=== PATIENT | female | born 1950 | race Two or more races ===

== ENCOUNTER 2024-08-01 11:04 | Outpatient (AMB) | payer MEDICARE, OTHER, SELFPAY ==
--- NOTE | 2024-08-01 11:09 | A.OFFVIS_ITS ---
Vital Signs 08/01/24 11:10 Height 5 ft 2 in Weight 140 lb BMI 25.6 BP 130/72 Blood Pressure Location Lt brachial Position Sitting Pulse 82 Pulse Source Pulse Oximeter Pulse Oximetry (%) 97 Oxygen Delivery Method Room Air Intake Visit Reasons: OA/Confirmed APPT. Intake Note: Patient presents for fibromyalgia and osteoarthritis. Allergies fluticasone [From Flonase] Allergy (Mild, Verified 08/01/24 11:13) Blister Sulfa (Sulfonamide Antibiotics) Allergy (Mild, Verified 08/01/24 11:13) Hives HPI HPI OA/Confirmed APPT.: Details: Hx PMR patient of Dr. Romero. She presents to establish Rheumatology care. She had PMR a year years ago presenting with diffuse pain, neck pain. She did not have GCA symptoms on prestation. She reports constant left temporal pain described as sharp pain. She saw Dr. Kline every 6 months with most recent visit last year. At one of her visits in the past Dr. Kline and Dr. Romero communicated due to concern for GCA. Patient denies have TA bx. She was not treated for giant cell arteritis. She has been off of prednisone. She fell out of bed a few years ago. She is not having trouble at the moment with getting up out of chair or bed. At this time she is having pain from recent kidney stone treated with lithotripsy and stent placement. Stent was removed yesterday. She took Tylenol this morning for pain control. She is also on antibiotic for UTI treatment day 3 of 5. hx of fibromyalgia. She has pain everywhere. She was on prednisone for a year and subsequently developed DM and osteoporosis as complication of [facility]p systemic glucorticosteroid use. She has been off of prednisone for a year. Bone density is due 04/07/2025 from reviewing patient's portal [employer]. She is on calcium and vitamin-D supplement. She has not been offered treatment for osteoporosis. She feel 3 times due to knees giving out. She does not use cane at home. She has had pain in her right knee with swelling. Dr. Romero has aspirated right knee. She has pain left 1st toe. She had x-ray done and was told she does not have a bunion. She was provided with custom orthotics, which has provided benefit. Hx hysterectomy She recently had surgery to remove kidney stone with removal of stent yesterday. Denies smoking or drinking alcohol. [facility] Medical History (Updated 08/01/24 @ 12:16 by Christopher Tse MD) Sciatica Arthritis Allergies Polymyalgia rheumatica Osteoarthritis Surgical History (Updated 08/01/24 @ 10:11 by Melissa Cox CMA) H/O: hysterectomy Social History (Updated 08/01/24 @ 10:12 by Melissa Cox CMA) Patient Tobacco Use Status: Never used Tobacco Review of Systems Const All systems reviewed & are unremarkable except as noted in HPI and below Physical Exam Vital Signs: Last Vital Signs Pulse 82 08/01/24 11:10 BP 130/72 08/01/24 11:10 Pulse Ox 97 08/01/24 11:10 Oxygen Delivery Method Room Air 08/01/24 11:10 BMI result Body Mass Index 25.6 Const Other: General: Comfortable CVS: RRR Respiratory: clear to auscultation bilaterally. Good respiratory effort Skin: No lesions seen MSK: No tenderness of small joints in her hands. No synovitis. Bilateral Shoulder abduction 160 degrees with good internal external rotation. She does not have diffuse allodynia of upper extremities or lower extremities. Good range of motion of lower extremities. Small effusion right knee. No tenderness of knees. Hallux valgus left present. She is able to get up out of chair to standing position with using arms on armrest. Assessment & Plan Assessment & Plan (1) Polymyalgia rheumatica: Comment: She has history of PMR treated with prednisone for a year. 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 She has diffuse pain without clinical findings of tender points on exam, which may be masked with the Tylenol that she recently took to control her pain. I am concerned that the pain that she is experiencing is from fibromyalgia and not from recurrent PMR based on clinical exam. I am recommending that she have labs done in 2 weeks to check inflammatory markers as she recently had lithotripsy, stent placement, removal of uterine stent yesterday and is currently being treated for UTI, which can contribute to inflammatory markers being elevated. Code(s): M35.3 - Polymyalgia rheumatica Category: Medical Plan: Labs ordered to have done in 2 weeks She will request bone density report from PCP Return to clinic 3-4 weeks (2) Falls frequently: Comment: She has had frequent falls. Intermittent knee pain right worse than left. Code(s): R29.6 - Repeated falls Category: Medical Plan: X-rays ordered Return to clinic in 3-4 weeks (3) Bunion, left: Comment: Clinical diagnosis. Patient has been evaluated for left 1st MTP pain and reports that x-ray did did not confirm bunion. At this time pain is controlled. Code(s): M21.612 - Bunion of left foot Category: Medical Plan: X-ray ordered Continue to wear supportive footwear (4) Osteoporosis: Comment: Per patient. I am requesting bone density performed at [facility] Code(s): M81.0 - Age-related osteoporosis without current pathological fracture Category: Medical Qualifiers: Osteoporosis type: age-related Presence of current pathological fracture: without current pathological fracture Qualified Code(s): M81.0 - Age- related osteoporosis without current pathological fracture Plan: Patient will request bone density from PCP's office I will address osteoporosis at a future visit Continue calcium and vitamin-D supplementation Return to clinic in 3-4 weeks Orders: Orders XR knee LT 1V Today R29.6 - Repeated falls Creatinine 2 Weeks M35.3 - Polymyalgia rheumatica Erythrocyte Sedimentation Rate 2 Weeks M35.3 - Polymyalgia rheumatica Aspartate Amino Transferase 2 Weeks M35.3 - Polymyalgia rheumatica C Reactive Protein 2 Weeks M35.3 - Polymyalgia rheumatica XR knee standing BI Today R29.6 - Repeated falls XR knee RT 1V Today R29.6 - Repeated falls Complete Blood Count Auto Diff 2 Weeks M35.3 - Polymyalgia rheumatica Alanine Aminotransferase 2 Weeks M35.3 - Polymyalgia rheumatica XR foot LT 2V Today M21.612 - Bunion of left foot Coding Level of Care Code New Pt Level 4 (61568) Diagnoses Polymyalgia rheumatica M35.3 Falls frequently R29.6 Bunion, left M21.612 Age-related osteoporosis without current pathological fracture M81.0 Osteoporosis type: age-related Presence of current pathological fracture: without current pathological fracture
[2024-08-01 11:10] VITALS: BP 130/72; PULSE 82; O2SAT 97; BMI 25.6
--- OUTSIDE RECORDS SUMMARY | 2024-08-01 13:16 | XMS_ITS | Data Portability ---
Author Organization HARSH[facility] Address [address] [place] [address] Care Team Providers Care Organizational Consultant Name Role Phone IRON MULLIGAN Primary Care Provider Assessment No assessment recorded. Plan of Treatment Reminders Order Date Submit Date Provider Last Modified By Organization Details Last Modified Time Details Appointments None recorded. Lab None recorded. Referral None recorded. Procedures None recorded. Surgeries None recorded. Imaging None recorded. Medication Orders doxycycline hyclate 100 mg capsule 2022 023 [facility], [address] [place], [address], 3 13:32:14 montelukast 10 mg tablet 2022 023 [facility], [address] [place], [address], 3 13:32:14 Patient TargetsNo targets recorded. Patient Instructions Encounter Date Encounter Id Patient Instructions Last Modified By Organization Details Last Modified Time 08/22/2022 [id number] Acute Sinusitis: Care Instructions [email or web address] Not available 08/22/2022 13:32:12 Based on your presentation and exam, you are being diagnosed with Sinusitis. Rhinosinusitis is most often viral and will resolve on its own in 7-10 days. Symptoms that last longer than 2 weeks an antibiotic could be considered. Based on your presentation, and antibiotic was written. The following are my recommendations to help your symptoms and to allow your condition to improve: 1. Drink plenty of fluids while you are ill- stay hydrated 2. Rest - don't overexert yourself - this includes sports and any gym routines. 3. I suggest taking an antihistamine - like Claritin, Zyrtec, or Benedryl 4. If you take OTC cold medication I would recommend Julia-Selzer Cold/Cough. 5. Mucinex with a lot of water is ok - if you are having trouble clearing your nasal passages of mucous. However, if you start to cough then discontinue - this can increase coughing due to a watery post nasal drip. 6. Saline Nasal Bouse is recommended. Since an antibiotic was prescribed you need to complete the full course - this is important so you don't develop any antibiotic resistance to future infections. I advise taking a Probiotic like Florastor since you are on an antibiotic - this will help you re-colonize your body with the good bacteria. Typically, it will take 6 months for you to restore your normal body ronald after an antibiotic. Don't hesitate to be seen again if you develop: 1. Fever > 100.5 2. Worsening Headache 3. Stiff Neck 4. Worsening Cough or Shortness of breath 5. Visual Changes. The antibiotic should start to work in 4-5 days. You may not notice immediate response. Thank you for using [facility] today, please feel free to contact our office if you have any questions or concerns. [email or web address] Not available 08/22/2022 13:31:44 Reason for Referral None Reported. Problems Name Problem SNOMED Code Status Onset Date Resolution Date Notes Provider Name and Address Organization Details Recorded Time Hypertensive disorder 93085506 Active 2022 Bev Iona null, PA - [facility] 3 13:04:19 Diabetes mellitus 66741220 Active 2022 Bev Iona null, PA - [facility] 3 13:04:27 Osteoporosis 60186857 Active 2022 Bev Neal null, PA - [facility] 3 13:04:34 Hyperlipidemia 46897601 Active 2022 Bev Iona null, PA - [facility] 3 13:04:39 Anxiety 04252281 Active 2022 Bev Iona null, PA - [facility] 3 13:04:45 Spasm of back muscles 203366640 Active 2022 Bev Iona null, PA - [facility] 3 13:05:01 Problem Notes None recorded. Procedures Surgical History Date Name Laterality Status Provider Name and Address Organization Details Recorded Time hysterectomy completed Bev PATRICIA - [facility] 08/22/2022 13:05:16 Imaging Results None recorded. Procedure Notes None recorded. Medical Equipment None Reported. Allergies Allergen ID Allergen Name Allergen Category Reaction Reaction Severity Criticality Documentation Date Start Date Code Code System Note Provider Name and Address Organization Details Recorded Time 357882 Substance with sulfonami de structure and antibacte rial mechanism of action (substanc e) medicatio n hives Not available low 08/22/2022 97322 8003 SNOMED Bev plascencia PA - [facility] 3 13:03:11 Medications Name Sig Start Date Stop Date Status Note LastModified by Organization Details LastModified Time doxycycline hyclate 100 mg capsule Take 1 capsule twice a day by oral route for 14 days. 2022 active Not Available Not Available Not Avai lable fluconazole 150 mg tablet active Not Available Not Available Not Available metoprolol succinate ER 50 mg tablet,exte nded release 24 hr TAKE 1 TABLET BY MOUTH EVERY DAY 08/22 completed Not Available Not Available Not Available lorazepam 0.5 mg tablet TAKE 1 TABLET BY MOUTH EVERY 8 HOURS NEEDED FOR ANXIETY active Not Available Not Available No t Available diltiazem CD 120 mg capsule,ext ended release 24 hr TAKE 1 CAPSULE BY MOUTH EVERY DAY active Not Available Not Available No t Available montelukast 10 mg tablet TAKE 1 TABLET BY MOUTH EVERY DAY active Not Available Not Available No t Available timolol maleate 0.5 % eye drops INSTILL 1 DROP INTO BOTH EYES EVERY MORNING DIRECTED active Not Available Not Available No t Available metformin ER 500 mg tablet,exte nded release 24 hr TAKE 2 TABLETS BY MOUTH DAILY (WITH BREAKFAST ). AND TAKE 2 TABS IN THE EVENING active Not Available Not Available No t Available metronidazo le 0.75 % topical gel APPLY TO FACE IN A THIN LAYER TWICE DAILY AFTER WASHING 08/22 completed Not Available Not Available Not Available amoxicillin 875 mg-potassiu m clavulanate 125 mg tablet TAKE 1 TABLET BY MOUTH TWICE A DAY FOR 7 DAYS 08/22 completed Not Available Not Available Not Available rosuvastati n 10 mg tablet TAKE 1 TABLET BY MOUTH EVERY DAY active Not Available Not Available No t Available nitrofurant oin monohydrate /macrocryst als 100 mg capsule 08/22 completed Not Available Not Available Not Available calcium 600 mg (as carbonate)- vitamin D3 10 mcg (400 unit) tablet TAKE 1 TABLET BY MOUTH TWICE DAILY *NOT COVERED* active Not Available Not Available No t Available Vitals Date Recorded Body height Body mass index (BMI) Body weight Oxygen saturation Oxygen saturation in Arterial blood by Pulse oximetry Heart rate Respiratory rate Body temperature Systolic blood pressure Diastolic blood pressure Provider Name and Address Organization Details Last Updated DateTime 3 157.48 cm 27.4 kg/m2 33754.8 6 g 97 % 97 % 80 /min 20 /min 97.9 [degF] 105 mm[Hg] 74 mm[Hg] Bev Monson [facility] 13:07:35 Social History Question Answer Notes LastModified by [employer] Details LastModified Time Tobacco Smoking Status Never Smoker Bev plascencia [employer] [facility] 08/22/2022 13:05:08 What Is Your Level Of Alcohol Consumption? None Information not available 08/22/2022 Have You Had Direct Contact, Or Contact During Intimacy, With Monkeypox Rash, Scabs, Or Body Fluids From A Person With Monkeypox? No Information not available 08/22/2022 Do You Use Any Illicit Or Recreational Drugs? No Information not available 08/22/2022 Have You Recently Traveled Abroad? No Information not available 08/22/2022 Do You Or Have You Ever Used Any Other Forms Of Tobacco Or Nicotine? No Information not available 08/22/2022 Sex: Unknown Functional Status None recorded. Mental Status None recorded. Family History Relationship Description Onset Age of this Age Resolved Age Notes LastModified by Organization Details LastModified Time Father No current problems or disability Not available 08/22 13:03:40 Mother No current problems or disability Not available 08/22 13:03:40 Medical History No medical history recorded. Gynecological HistoryNo gynecological history recorded. Obstetrics History GPAL:G 0 P 0 0 0 0 Immunizations Vaccine Type Date Status Note Provider Nam e and Address Organization Details Recorded Time zoster recombinant 0 completed Bev Iona null, PA - [facility] 08/22/2022 13:02:55 zoster recombinant 0 completed Bev Neal null, PA - [facility] 08/22/2022 13:02:55 Influenza, high-dose, quadrivalent, PF 1 completed Bev Iona null, PA - [facility] 08/22/2022 13:02:55 COVID-19, mRNA, LNP-S, PF, 30 mcg/0.3 mL dose 1 completed Bev Iona null, PA - [facility] 08/22/2022 13:02:55 COVID-19, mRNA, LNP-S, PF, 30 mcg/0.3 mL dose 1 completed Bev Neal null, PA - [facility] 08/22/2022 13:02:55 COVID-19, mRNA, LNP-S, PF, 30 mcg/0.3 mL dose 1 completed Bev Neal null, PA - [facility] 08/22/2022 13:02:55 COVID-19, mRNA, LNP-S, PF, 30 mcg/0.3 mL dose, ming-sucrose 2 completed Bev Iona null, PA - [facility] 08/22/2022 13:02:55 pneumococcal polysaccharide PPV23 4 completed Bev Neal null, PA - [facility] 08/22/2022 13:02:55 Td(adult) unspecified formulation 5 completed Bev Neal null, PA - [facility] 08/22/2022 13:02:55 Tdap 6 completed Bev Iona null, PA - [facility] 08/22/2022 13:02:55 Pneumococcal conjugate PCV 13 8 completed Bev Iona null, PA - [facility] 08/22/2022 13:02:55 zoster live 3 completed Bev Iona null, PA - [facility] 08/22/2022 13:02:55 Influenza, high-dose, trivalent, PF 0 completed Bev Iona null, PA - [facility] 08/22/2022 13:02:55 Influenza, high-dose, trivalent, PF 7 completed Bev Iona null, PA - [facility] 08/22/2022 13:02:55 Influenza, high-dose, trivalent, PF 8 completed Bev Neal null, PA - [facility] 08/22/2022 13:02:55 Influenza, high-dose, trivalent, PF 9 completed Bev Iona null, PA - [facility] 08/22/2022 13:02:55 Influenza, high-dose, trivalent, PF 2 completed Bev Neal null, PA - [facility] 08/22/2022 13:02:55 Influenza, high-dose, trivalent, PF 9 completed Bev Neal null, PA - [facility] 08/22/2022 13:02:55 Influenza, split virus, trivalent, preservative 5 completed Bev Neal null, PA - [facility] 08/22/2022 13:02:55 Influenza, split virus, trivalent, preservative 5 completed Bev Neal null, PA - [facility] 08/22/2022 13:02:55 Influenza, split virus, trivalent, preservative 1 completed Bev Iona null, PA - [facility] 08/22/2022 13:02:55 Influenza, split virus, trivalent, preservative 7 completed Bev Neal null, PA - [facility] 08/22/2022 13:02:55 Influenza, split virus, trivalent, preservative 8 completed Bev Iona null, PA - [facility] 08/22/2022 13:02:55 Influenza, split virus, trivalent, preservative 5 completed Bev Iona null, PA - [facility] 08/22/2022 13:02:55 Influenza, split virus, trivalent, preservative 6 completed Bev Iona null, PA - [facility] 08/22/2022 13:02:55 Influenza, split virus, trivalent, preservative 6 completed Bev Neal null, PA - [facility] 08/22/2022 13:02:55 Influenza, split virus, trivalent, PF 3 completed Bev Iona null, PA - [facility] 08/22/2022 13:02:55 Past Encounters Encounter ID Performer Location Encounter Start Date Encounter Closed Date Diagnosis/Indication Diagnosis SNOMED-CT Code Diagnosis ICD10 Code Diagnosis Note [id number] [facility] [address] [place] [phone] 09/16/2021 14:08:53 09/16/2021 17:02:30 [id number] [address] [phone] 09/07/2020 12:07:58 09/07/2020 13:07:48 [id number] HARSHAD MEJIAS [facility] [address] [place] [phone] 0 08/22/2022 10:54:33 08/22/2022 13:32:54 Acute sinusitis 90488080 J01.90 Continue your Saline Nasal Bouse and Marie Use Humidifier in your home. Stay Warm. Health Concerns Section Related Observation LastModified by Organization Detai ls LastModified Time None Recorded Concern Status LastModified by Organization Details LastModified Time None Recorded Advance Directives Directive None Recorded Payers Encounter Date Sequence Insurance Name Policy Number Policy Lynn Covered Member ID Lynn Member ID Guarantor Name 09/07/2020 1 MEDICARE B-[place]: [employer] Marycarmen Gillespie [id number] 2 Marycarmen Gillespie 09/07/2020 2 [facility] [id number] Marycarmen Gillespie [id number] Marycarmen Gillespie 09/16/2021 1 MEDICARE B-[place]: [facility] Marycarmen Gillespie [id number] 2 Marycarmen Gillespie 09/16/2021 2 [facility] [id number] 2 Marycarmen Hillz [id number] Marycarmen Hillz 08/22/2022 1 MEDICARE B-[place]: [facility] Marycarmen Gillespie [id number] 2 Marycarmen Gillespie 08/22/2022 2 [facility] [id number] 2 Marycarmen Hillz [id number] Marycarmen Gillespie Notes Date Note Type Note Provider Name and Address Organization Details Recorded Time 08/22/2022 text/html Sinus Complaints UCReported bypatient.Location: sinus pain;facial pain;pain in the cheek;sinus pressure Associated Symptoms:no fever; no nausea or vomiting; no cough;nasal discharge from both nostrils;difficulty breathing;headache back of head;sore throat;Post nasal drip;nasal passage blockage bilaterally;ear fullness Onset/Timing:initia lly started 2months ago; progressively worse over last 4days Quality:worsening;y ellow Duration:chronic Severity:mild Context:no recent sick contacts Risk Factors:no current smoking or tobacco use Alleviating factors:saline nasal rinses; warm compressNotes:Patel d PCP about 2 weeks ago - was put on Amoxicillin on relief. Feels like she is now worsening over the last 3 days. Yellow discharge. Does have Allergies - takes Marie and saline nasal spray. Started to cough and now is a productive cough. No asthma history. HARSHAD MEJIAS [address] [place], [address], [place] - [facility] 08/22/2022 13:35:55 OBGyn Episode No OBEpisode recorded.
--- OUTSIDE RECORDS SUMMARY | 2024-08-01 13:16 | XMS_ITS | Data Portability ---
Author Organization [place] - [facility], Allergy Address [address] [address] Assessment Encounter Date Assessment Date Assessment LastModified by Organization Details LastModified Time 02/18/2024 02/18/2024 CT sinus obtained due to persistent facial pressure. It was clear of polyps or chronic sinus disease. Recommend trial of azelastine, as that has been helpful in the past, 2 sprays into each nostril twice daily using the opposite hand. Follow up in 6 months for refills, sooner with issues. Dr. Rodriguez reviewed and interpreted the images of today's CT. [email or web address] Not available 02/18/2024 13:01:46 Plan of Treatment Reminders Order Date Submit Date Provider Last Modified By Organization Details Last Modified Time Details Appointments Establish ed 15 2024 02:15P Isaías MAGANA PA-C Not available Not available Not available Lab None recorded. Referral None recorded. Procedures None recorded. Surgeries None recorded. Imaging CT, sinuses, w/o contrast 2023 024 [facility], [address] [place] [address], [id number], 02/18/2024 10:54:00 Medication Orders azelastin e 137 mcg (0.1 %) nasal spray 2023 024 [id number], [address] [facility], [place], [address], 02/18/2024 09:40:51 Patient TargetsNo targets recorded. Patient InstructionsNo instructions recorded. Reason for Referral None Reported. Results Created Date Observation Date Name Description Value Unit Range Abnormal Flag Note LastModifiedBy Organization Detail LastModifiedTime 02/18/20 CT, sinus es, w/o contr ast No observ ation record ed. [email or web address] [facility] Of [address], [address], 02/18/2024 09:43:53 02/24/2002/18/2024 CT, sinus es, w/o contr ast No observ ation record ed. [email or web address] [facility] [address], [address], 02/24/2024 10:03:38 03/07/20 24 08/16/2019 imagi ng/di agnos tic resul t No observ ation record ed. [email or web address] Not Available 14:48:51 03/07/20 24 06/30/2020 imagi ng/di agnos tic resul t No observ ation record ed. [email or web address] Not Available 14:49:10 Result Notes None recorded. Problems Name Problem SNOMED Code Status Onset Date Resolution Date Notes Provider Name and Address Organization Details Recorded Time Deviated nasal septum 129542874 Active 2020 Deviated nasal septum; Note: Date Diagnosed : 01/24/2021 10:12 AM (J34.2) Not Available [facility] 4 02:35:57 Otalgia of left ear 2972169713 Active 2017 Otalgia, left ear; Note: Date Diagnosed : 12/15/2017 2:46 PM (H92.02) Not Available [facility] 4 02:35:59 Pain of left temporoma ndibular joint 94624802145 910530 Active 2017 Arthralgi a of left temporoma ndibular joint; Note: Date Diagnosed : 12/15/2017 2:46 PM (M26.622) Not Available [facility] 4 02:35:49 Obstructi ve sleep apnea syndrome 99249834 Active 2020 Obstructi ve sleep apnea (adult) (pediatri c); Note: Date Diagnosed : 01/24/2021 10:12 AM (G47.33) Not Available [facility] 4 02:36:00 Allergic rhinitis 74245510 Active 2020 Other allergic rhinitis; Note: Date Diagnosed : 01/24/2021 10:11 AM (J30.89) Allergi c rhinitis, unspecifi ed; Note: Date Diagnosed : 11/06/2020 1:49 PM (J30.9) ; Start Date : 1 Not Available [facility] 4 02:35:54 Chronic rhinitis 76062838 Active 2023 CRISTÓBAL MAGANA PA-C [address] [place] [address],[place] [address], [place], [address] , [facility] - [facility] [place] 4 09:16:38 Atypical facial pain 12392457 Active 2023 CRISTÓBAL MAGANA PA-C [address] [place] [address],[place] [address], [place], [address] , [facility] - [facility] [place] 4 09:43:08 Pain in face 58671487 Active 2023 CRISTÓBAL MAGANA PA-C [address] [place] [address],[place] [address], [place], [phone] , [facility] - [facility] [place] 4 09:43:18 Problem Notes None recorded. Procedures Surgical History None recorded. Imaging Results Imaging Date Name Status LastModified by [facility] Details LastModified Time 02/18/2024 CT, sinuses, w/o contrast completed [email or web address] [facility] [address] [place], [address], 02/18/2024 09:43:53 02/18/2024 CT, sinuses, w/o contrast completed [email or web address] [facility] [address] [place] [address], [place], [address], 02/24/2024 10:03:38 08/16/2019 imaging/diagn ostic result completed Information not available 03/07/2024 14:48:51 06/30/2020 imaging/diagn ostic result completed Information not available 03/07/2024 14:49:10 Procedure Notes None recorded. Medical Equipment None Reported. Allergies Allergen ID Allergen Name Allergen Category Reaction Reaction Severity Criticality Documentation Date Start Date Code Code System Note Provider Name and Address Organization Details Recorded Time [id number] Substance with sulfonami de structure and antibacte rial mechanism of action (substanc e) medicatio n other Not available Not available 11/30/2023 27045 [id number] SNOMED React ion: unkno wn, unspe cifie d;; Not Available [facility] 01:24:22 Medications Name Sig Start Date Stop Date Status Note LastModified by Organization Details LastModified Time nystatin 100,000 unit/mL oral suspensio n TAKE 2 ML BY MOUTH 4 TIMES DAILY FOR 7 DAYS. 02/17 completed Not Available Not Available Not Available loperamid e 2 mg capsule TAKE 1 CAPSULE BY MOUTH FOUR TIMES A DAY NEEDED FOR DIARRHEA FOR UP TO 10 DAYS active Not Available Not Available No t Available atorvasta tin 10 mg tablet 02/17 completed Medicati on ID: [id number] rand Name: atorvast atin Sen d Method: E-Prescr ibed Sub s Allowed: subs OK Medic ationGen ericName : atorvast atin Not Available Not Available Not Available cefpodoxi me 200 mg tablet 02/17 completed Not Available Not Available Not Available azithromy leticia 250 mg tablet TAKE 2 TABLETS BY MOUTH TODAY, THEN TAKE 1 TABLET DAILY FOR 4 DAYS DIRECTED 02/17 completed Not Available Not Available Not Available metoprolo l succinate ER 50 mg tablet,ex tended release 24 hr TAKE 1 1/2 TABLETS BY MOUTH EVERY DAY active Not Available Not Available No t Available atenolol 25 mg tablet 02/17 completed Medicati on ID: [id number] B rand Name: atenolol Send Method: E-Prescr ibed Sub s Allowed: subs OK Medic ationGen ericName : atenolol Not Available Not Available Not Available lorazepam 0.5 mg tablet TAKE 1 TABLET BY MOUTH EVERY 8 HOURS NEEDED FOR ANXIETY active Not Available Not Available No t Available OneTouch Ultra Test strips USE TO CHECK BLOOD SUGAR ONCE A DAY active Not Available Not Available No t Available codeine 10 mg-guaife nesin 100 mg/5 mL oral liquid TAKE 5 ML BY MOUTH 3 TIMES DAILY NEEDED FOR COUGH FOR UP TO 10 DAYS. 02/17 completed Not Available Not Available Not Available digoxin 125 mcg (0.125 mg) tablet 02/17 completed Medicati on ID: [id number] B rand Name: digoxin Send Method: E-Prescr ibed Sub s Allowed: subs OK Medic ationGen ericName : digoxin Not Available Not Available Not Available azelastin e 137 mcg (0.1 %) nasal spray SPRAY 2 SPRAYS INTO EACH NOSTRIL TWICE A DAY FOR 30 DAYS active Not Available Not Available No t Available timolol maleate 0.5 % eye drops INSTILL 1 DROP INTO BOTH EYES EVERY MORNING DIRECTED active Not Available Not Available No t Available metformin ER 500 mg tablet,ex tended release 24 hr TAKE 2 TABLETS BY MOUTH DAILY (WITH BREAKFAS T). AND TAKE 2 TABS IN THE EVENING 02/17 completed Not Available Not Available Not Available sertralin e 50 mg tablet 02/17 completed Medicati on ID: [id number] B rand Name: sertrali ne Send Method: E-Prescr ibed Sub s Allowed: subs OK Medic ationGen ericName : sertrali ne Not Available Not Available Not Available metronida zole 0.75 % topical gel 02/17 completed Medicati on ID: [id number] B rand Name: metronid azole Se nd Method: E-Prescr ibed Sub s Allowed: subs OK Medic ationGen ericName : metronid azole Not Available Not Available Not Available loratadin e 10 mg tablet 2020 active Medicati on ID: [id number] B rand Name: loratadi ne Send Method: E-Prescr ibed Sub s Allowed: subs OK Speci al Instruct ion: TAKE 1 TABLET BY MOUTH EVERY DAY Medi cationGe nericNam e: loratadi ne Not Available Not Available Not Available cyclobenz aprine 5 mg tablet Take 1 tablet 3 times a day by oral route. active Not Available Not Available No t Available rosuvasta tin 10 mg tablet TAKE 1 TABLET BY MOUTH EVERY DAY active Not Available Not Available No t Available nitrofura ntoin monohydra te/macroc rystals 100 mg capsule TAKE 1 CAPSULE BY MOUTH TWICE A DAY FOR 7 DAYS active Not Available Not Available No t Available OneTouch UltraSoft Lancets USE TO CHECK BLOOD SUGAR ONCE A DAY active Not Available Not Available No t Available cyclobenz aprine 02/17 completed Not Available Not Available Not Available calcium 600 mg (as carbonate )-vitamin D3 10 mcg (400 unit) tablet TAKE 1 TABLET BY MOUTH TWICE DAILY active Not Available Not Available No t Available OneTouch Ultra2 Meter USE TO CHECK BLOOD SUGAR ONCE A DAY active Not Available Not Available No t Available OneTouch Delica Plus Lancet 30 gauge USE DIRECTED ONCE DAILY active Not Available Not Available No t Available Vitals Date Recorded Body height Body mass index (BMI) Body weight Provider Name and Address Organization Details Last Updated DateTime 02/18/2024 157.48 cm 27.8 kg/m2 98076.04 g Vangie Michael [place] - [facility] 02/18/2024 09:12:09 Social History None recorded. Functional Status None recorded. Mental Status None recorded. Family History Nothing Reported. Medical History No medical history recorded. Gynecological HistoryNo gynecological history recorded. Obstetrics History GPAL:G 0 P 0 0 0 0 Past Encounters Encounter ID Performer Location Encounter Start Date Encounter Closed Date Diagnosis/Indication Diagnosis SNOMED-CT Code Diagnosis ICD10 Code Diagnosis Note [id number] MELANIE RODRIGUEZ MD [facility] [address] [address] 02/18/2024 08:58:15 02/18/2024 09:40:13 Chronic rhinitis 39486471 J31.0 Pain in face 01397547 R5 1.9 Health Concerns Section Related Observation LastModified by Organization Detai ls LastModified Time None Recorded Concern Status LastModified by Organization Details LastModified Time None Recorded Advance Directives Directive None Recorded Payers Encounter Date Sequence Insurance Name Policy Number Policy Lynn Covered Member ID Lynn Member ID Guarantor Name 02/18/2024 1 MEDICARE B-[place]: [employer] Marycarmen Gillespie [id number] Marycarmen Gillespie 02/18/2024 2 [facility] [employer] PL[employer] F (MEDICARE SUPPLEMENT) [id number] 2 Marycarmen Mahogany Gillespie [id number] Marycarmen Gillespie Notes Date Note Type Note Provider Name and Address Organization Details Recorded Time 02/18/2024 text/html 74 year old hayden trevizo presents for follow up on chronic allergic rhinitis and septal deviation. In November, was prescribed Astelin 2 sprays each nostril twice daily and cetirizine or fexofenadine. She has not been taking any of these. Cannot afford the oral antihistamines now that insurance no longer covers OTC medications. Using saline spray. She stopped using her CPAP due to her nasal congestion. Reports nasal drainage is clear. Endorses pressure in bilateral frontal and maxillary distribution. Her sense of smell is fine. Azelastine was helpful previously but caused sores on the septum. MELANIE RODRIGUEZ MD [address] [place] [address], [phone], [facility] - [facility] 02/18/2024 17:28:02 OBGyn Episode No OBEpisode recorded.
== END 2024-08-01 12:11 | disposition home or self-care (01) ==
PROVIDERS: PCP Internal Medicine; Visit Provider Internal Medicine Rheumatology
DX: M35.3 Polymyalgia rheumatica (principal); R29.6 Repeated falls; M21.612 Bunion of left foot; M81.0 Age-related osteoporosis without current pathological fracture
CPT/HCPCS: 99204

== ENCOUNTER → 2024-08-01 11:04 | Outpatient (BNVA) | payer MEDICARE, OTHER, SELFPAY | PROVIDERS: PCP Internal Medicine; Visit Provider Internal Medicine Rheumatology | DX: M35.3 Polymyalgia rheumatica (principal); M21.612 Bunion of left foot; M81.0 Age-related osteoporosis without current pathological fracture; R29.6 Repeated falls | CPT/HCPCS: 99202 ==

== ENCOUNTER 2024-08-29 09:08 | Outpatient (AMB) | payer MEDICARE, OTHER, SELFPAY ==
[2024-08-29 09:11] VITALS: BP 110/64; PULSE 82; O2SAT 94; BMI 27.1
--- NOTE | 2024-08-29 09:11 | MHC.OFFVIS ---
Vital Signs 08/29/24 09:11 Height 5 ft 2 in Weight 148 lb BMI 27.1 BP 110/64 Blood Pressure Location Rt brachial Pulse 82 Pulse Source Pulse Oximeter Pulse Oximetry (%) 94 Oxygen Delivery Method Room Air Intake Visit Reasons: RTC 3-4 Weeks Intake Note: patient presents for follow up Allergies fluticasone [From Flonase] Allergy (Mild, Verified 08/29/24 09:16) Blister Sulfa (Sulfonamide Antibiotics) Allergy (Mild, Verified 08/29/24 09:16) Hives HPI HPI RTC 3-4 Weeks: Details: She has been treated for UTI. Pain from kidney stone resolved the day after surgery. She is experiencing pain under right breast radiating to back and shoulder blade. Onset of pain for 2 weeks after reaching for food in her deep freezer. PFSH Medical History Sciatica Arthritis Allergies Polymyalgia rheumatica Osteoarthritis Surgical History H/O: hysterectomy Social History Patient Tobacco Use Status: Never used Tobacco Physical Exam Vital Signs: Last Vital Signs Pulse 82 08/29/24 09:11 BP 110/64 08/29/24 09:11 Pulse Ox 94 08/29/24 09:11 Oxygen Delivery Method Room Air 08/29/24 09:11 BMI result Body Mass Index 27.1 Const Other: General: Comfortable Skin: No lesions seen MSK: Good range of motion of upper extremities. Tender to palpate below right bra line without any erythema or skin rash present. Assessment & Plan Assessment & Plan (1) Polymyalgia rheumatica: Comment: She has history of PMR treated with prednisone for a year. 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 Recent labs reviewed with patient, which revealed normal inflammatory markers. She is in remission. Code(s): M35.3 - Polymyalgia rheumatica Category: Medical Plan: Monitor clinically for reoccurrence (2) Osteoporosis: Comment: Per patient. I am requesting bone density performed at [facility] Code(s): M81.0 - Age-related osteoporosis without current pathological fracture Category: Medical Qualifiers: Osteoporosis type: age-related Presence of current pathological fracture: without current pathological fracture Qualified Code(s): M81.0 - Age-related osteoporosis without current pathological fracture Plan: I have not received bone density report. Patient will request bone density report. (3) Bunion, left: Comment: Clinical diagnosis. She had x-ray done last month. At this time pain is controlled. Code(s): M21.612 - Bunion of left foot Category: Medical Plan: Patient had x-ray done but I do not have report. Requesting report of x-ray Return to clinic in 3 months (4) Muscle strain of chest wall: Comment: Right bra line region she has developed muscular strain after an incident where she tried to reach for food in a deep freezer. We discussed conservative management. Code(s): S29.011A - Strain of muscle and tendon of front wall of thorax, initial encounter Category: Medical Qualifiers: Encounter type: initial encounter Qualified Code(s): S29.011A - Strain of muscle and tendon of front wall of thorax, initial encounter Plan: Apply diclofenac gel 1% to affected area 3 times a day Apply heat or ice to affected area daily If pain does not improve, she will call office for PT Return to clinic in 3 months Coding Level of Care Code Est Pt Level 4 (12697) Complex EM visit Add On G2211 Diagnoses Polymyalgia rheumatica M35.3 Age-related osteoporosis without current pathological fracture M81.0 Osteoporosis type: age-related Presence of current pathological fracture: without current pathological fracture Bunion, left M21.612 Muscle strain of chest wall, initial encounter S29.011A Encounter type: initial encounter
== END 2024-08-29 10:02 | disposition home or self-care (01) ==
PROVIDERS: PCP Internal Medicine; Visit Provider Internal Medicine Rheumatology
DX: M35.3 Polymyalgia rheumatica (principal); M81.0 Age-related osteoporosis without current pathological fracture; M21.612 Bunion of left foot; S29.011A Strain of muscle and tendon of front wall of thorax, initial encounter
CPT/HCPCS: 99214; G2211

== ENCOUNTER → 2024-08-29 09:08 | Outpatient (BNVA) | payer MEDICARE, OTHER, SELFPAY | PROVIDERS: PCP Internal Medicine; Visit Provider Internal Medicine Rheumatology | DX: M35.3 Polymyalgia rheumatica (principal); M81.0 Age-related osteoporosis without current pathological fracture; M21.612 Bunion of left foot; S29.011A Strain of muscle and tendon of front wall of thorax, initial encounter; X58.XXXA Exposure to other specified factors, initial encounter; Y93.9 Activity, unspecified; Y92.9 Unspecified place or not applicable; Y99.9 Unspecified external cause status | CPT/HCPCS: 99212 ==

== ENCOUNTER 2024-11-28 14:13 | Outpatient (AMB) | payer MEDICARE, OTHER, MEDICAID, SELFPAY ==
--- NOTE | 2024-11-28 14:14 | MHC.OFFVIS ---
Vital Signs 11/28/24 14:15 Height 5 ft 2 in Weight 148 lb 6 oz BMI 27.1 BP 110/80 Blood Pressure Location Rt brachial Position Sitting Pulse 84 Pulse Source Pulse Oximeter Pulse Oximetry (%) 99 Oxygen Delivery Method Room Air Intake Visit Reasons: 3 Months Intake Note: Patient presents for fibromyalgia and osteoarthritis. Allergies fluticasone [From Flonase] Allergy (Mild, Verified 11/28/24 14:14) Blister Sulfa (Sulfonamide Antibiotics) Allergy (Mild, Verified 11/28/24 14:14) Hives HPI HPI 3 Months: Details: She had cramps last week last wednesday (left leg) and (right leg).It occurred at night. Lasted 5 mintues or more. Resolved. Stretching was ineffective. She has tightness in her muscles at night. She light temperal headaches especially left side. Occurs 3-4 times a week when she lies down or gets up in the morning. SHe was told she has high pressure in left eye. On eye drops. She sees lines in her eyes. Last eye exam 2-3 months ago. No jaw pain. She has chronic intermittent neck pain. She has pain everywhere. [facility] Medical History (Updated 11/28/24 @ 16:13 by Christopher Tse MD) Sciatica Arthritis Allergies Polymyalgia rheumatica Osteoarthritis Surgical History (Updated 11/28/24 @ 14:19 by Trinidad Palafox CMA) H/O ureteroscopy H/O: hysterectomy Social History Patient Tobacco Use Status: Never used Tobacco Physical Exam Vital Signs: Last Vital Signs Pulse 84 11/28/24 14:15 BP 110/80 11/28/24 14:15 Pulse Ox 99 11/28/24 14:15 Oxygen Delivery Method Room Air 11/28/24 14:15 BMI result Body Mass Index 27.1 Const Other: General: Comfortable Skin: No lesions seen MSK: Normal range of motion of upper extremities and lower extremities. No tenderness of temporal region. No synovitis. Pulses: Palpable bilateral temporal pulses +1. +2 bilateral radial pulses. Assessment & Plan Assessment & Plan (1) Polymyalgia rheumatica: Comment: In clinical remission. She has been experiencing mild bilateral temporal headaches. We discussed association of giant cell arteritis with polymyalgia rheumatica. Rheumatology history: PMR treated with prednisone for a year. 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 Recent labs reviewed with patient, which revealed normal inflammatory markers. She is in remission. Code(s): M35.3 - Polymyalgia rheumatica Category: Medical Plan: I will check inflammatory markers. If inflammatory markers are elevated, patient will be inform for consideration of left temporal artery biopsy for workup of giant cell arteritis Return to clinic in 3 months (2) Muscle cramp: Code(s): R25.2 - Cramp and spasm Category: Medical Plan: Electrolytes ordered Return to clinic in 3 months (3) Fibromyalgia: Comment: She is experiencing all-over body pain likely related to uncontrolled fibromyalgia. Code(s): M79.7 - Fibromyalgia Category: Medical Plan: I recommended aquatic therapy. She will look into the [employer] Orders: Orders Potassium Today R25.2 - Cramp and spasm Magnesium Today R25.2 - Cramp and spasm Calcium Today R25.2 - Cramp and spasm Aldolase Today R25.2 - Cramp and spasm Vitamin D 25-OH Total Today R25.2 - Cramp and spasm Erythrocyte Sedimentation Rate Today M35.3 - Polymyalgia rheumatica, Z79.899 - Other intermediate (current) drug therapy C Reactive Protein Today M35.3 - Polymyalgia rheumatica, Z79.899 - Other intermediate (current) drug therapy Coding Level of Care Code Est Pt Level 4 (59532) Complex EM visit Add On G2211 Diagnoses Polymyalgia rheumatica M35.3 Muscle cramp R25.2 Fibromyalgia M79.7
[2024-11-28 14:15] VITALS: BP 110/80; PULSE 84; O2SAT 99; BMI 27.1
--- OUTSIDE RECORDS SUMMARY | 2024-11-28 15:27 | XMS_ITS | Data Portability ---
Author Organization [place] [facility], Allergy Address [address] [address] Assessment Encounter Date Assessment Date Assessment LastModified by Organization Details LastModified Time 02/18/2024 02/18/2024 CT sinus obtaine d due to persistent facial pressure. It was clear of polyps or chronic sinus disease. Recommend trial of azelastine, as that has been helpful in the past, 2 sprays into each nostril twice daily using the opposite hand. Follow up in 6 months for refills, sooner with issues. Dr. Rodriguez reviewed and interpreted the images of today's CT. [email or web address] Not available 02/18/2024 13:01:46 08/21/2024 08/21/2024 Facial pressure has resolved with use of Astelin, but clear rhinorrhea persists. CT previously clear of chronic sinusitis or nasal polyps, and patient without history or physical exam findings consistent with infection. Reviewed this is likely a combination of allergic and non allergic rhinitis. Allergy testing in 2020 demonstrated few allergies, most mild, but strongest response was to dust mites. She is not interested in immunotherapy, so doubt there would be significant benefit from repeating her allergy testing. Recommend new pillow, and hypoallergenic mattress and pillow covers along with removal of any rugs or carpet in the bedroom. Bed clothes should be laundered weekly in hot water and dried in a hot soap drier tender. Recommend frequent vacuuming and damp-mopping, preferably by another member of the household or while wearing a mask if patient must do this themself. Consider an air purifier with HEPA filter, which should be regularly changed according to porcelain slusher schedule. Vents and ducts in the home should be cleaned regularly as well. Follow up in 6 months, sooner with worsening or lack of improvement. [email or web address] Not available 08/21/2024 14:42:36 Plan of Treatment Reminders Order Date Submit Date Provider Last Modified By Organization Details Last Modified Time Details Appointments Establish ed 30 2024 09:00A M FELI MCDANIEL MD Not available Not available Not available Lab None recorded. Referral None recorded. Procedures None recorded. Surgeries None recorded. Imaging CT, sinuses, w/o contrast 2023 024 [facility], [address] [place] [address], [address], 02/18/2024 10:54:00 Medication Orders ipratropi um bromide 21 mcg (0.03 %) nasal spray 2024 025 [facility]acy #1972, [address] [place] [address], [address], 08/21/2024 14:35:30 azelastin e 137 mcg (0.1 %) nasal spray 2023 024 [facility] #1972, [address] [place] [address], [address], 02/18/2024 09:40:51 Patient TargetsNo targets recorded. Patient InstructionsNo instructions recorded. Reason for Referral None Reported. Results Created Date Observation Date Name Description Value Unit Range Abnormal Flag Note LastModifiedBy Organization Detail LastModifiedTime 02/18/20 CT, sinus es, w/o contr ast No observ ation record ed. [email or web address] [facility] [address], [address], 02/18/2024 09:43:53 02/24/2002/18/2024 CT, sinus es, w/o contr ast No observ ation record ed. [email or web address] [facility] [address], [address], 02/24/2024 10:03:38 03/07/20 24 08/16/2019 imagi ng/di [...] Organization Details Recorded Time Deviated nasal septum 190439744 Active 2020 Deviated nasal septum; Note: Date Diagnosed : 01/24/2021 10:12 AM (J34.2) Not Available [facility] 4 02:35:57 Otalgia of left ear 5324851069 Active 2017 Otalgia, left ear; Note: Date Diagnosed : 12/15/2017 2:46 PM (H92.02) Not Available [facility] 4 02:35:59 Pain of left temporoma ndibular joint 78461771133 439311 Active 2017 Arthralgi a of left temporoma ndibular joint; Note: Date Diagnosed : 12/15/2017 2:46 PM (M26.622) Not Available [facility] 4 02:35:49 Obstructi ve sleep apnea syndrome 78748632 Active 2020 Obstructi ve sleep apnea (adult) (pediatri c); Note: Date Diagnosed : 01/24/2021 10:12 AM (G47.33) Not Available [facility] 4 02:36:00 Allergic rhinitis 03733487 Active 2020 Other allergic rhinitis; Note: Date Diagnosed : 01/24/2021 10:11 AM (J30.89) Allergi c rhinitis, unspecifi ed; Note: Date Diagnosed : 11/06/2020 1:49 PM (J30.9) ; Start Date : Not Available [facility] 4 02:35:54 Chronic rhinitis 91284407 Active 2023 CRISTÓBAL MAGANA PA-C [address] [place] [address],[facility] [address], [place], [address] , [place] - [facility] [place] 4 09:16:38 Atypical facial pain 67626176 Active 2023 CRISTÓBAL MAGANA PA-C [address] [facility],[place] [address], [place], [place], [address] , [place] - [facility] [place] 4 09:43:08 Pain in face 52259664 Active 2023 CRISTÓBAL MAGANA PA-C [address] [facility],[place] [address], [place], [place], [address] , [place] - [facility] [place] 4 09:43:18 Anterior rhinorrhe a 484820163 Active 2024 CRISTÓBAL MAGANA PA-C [address] [facility],[place] [address], [place], [place], [address] , [place] - [facility] [place] 5 14:33:59 Problem Notes None recorded. Procedures Surgical History None recorded. Imaging Results Imaging Date Name Status LastModified by [facility] Details LastModified Time 02/18/2024 CT, sinuses, w/o contrast completed [email or web address] [facility] [address] [place], [address], 02/18/2024 09:43:53 02/18/2024 CT, sinuses, w/o contrast [email or web address] [address] [place] [address], [place], [address], 02/24/2024 10:03:38 08/16/2019 imaging/diagn ostic result completed Information not available 03/07/2024 14:48:51 06/30/2020 imaging/diagn ostic result completed Information not available 03/07/2024 14:49:10 Procedure Notes None recorded. Medical Equipment None Reported. Allergies Allergen ID Allergen Name Allergen Category Reaction Reaction Severity Criticality Documentation Date Start Date Code Code System Note Provider Name and Address Organization Details Recorded Time 610809 Substance with sulfonami de structure and antibacte rial mechanism of action (substanc e) medicatio n other Not available Not available 11/30/2023 43127 8003 SNOMED React ion: unkno wn, unspe cifie d;; Not Available [facility] 01:24:22 Medications Name Sig Start Date Stop [...] mg tablet 02/17 completed Medicati on ID: [id number] B rand Name: atorvast atin Sen d [...] completed Not Available Not Available Not Available cefpodoxi me 100 mg tablet TAKE 1 TABLET BY MOUTH TWICE A DAY active Not Available Not Available No t Available metoprolo l succinate ER 50 mg tablet,ex tended release 24 hr TAKE 1 1/2 TABLETS BY MOUTH DAILY active Not Available Not Available No t Available atenolol 25 mg tablet 02/17 completed Medicati on ID: [id number] B rand Name: atenolol Send Method: E-Prescr [...] Not Available Not Available No t Available cephalexi n 500 mg capsule TAKE 1 CAPSULE BY MOUTH 3 TIMES A DAY FOR 5 DAYS. 08/21 completed Not Available Not Available Not Available codeine 10 mg-guaife nesin 100 mg/5 mL oral liquid TAKE 5 ML BY MOUTH 3 TIMES DAILY NEEDED FOR COUGH FOR UP TO 10 DAYS. 02/17 completed Not Available Not Available Not Available digoxin 125 mcg (0.125 mg) tablet 02/17 completed Medicati on ID: [id number] B rand Name: digoxin Send Method: E-Prescr [...] Not Available Not Available No t Available sertralin e 50 mg tablet 02/17 completed Medicati on ID: [id number] B rand Name: sertrali ne Send Method: E-Prescr ibed Sub s Allowed: subs OK Medic ationGen ericName : sertrali ne Not Available Not Available Not Available metronida zole 0.75 % topical gel 02/17 completed Medicati on ID: [id number] B rand Name: metronid azole Se nd Method: E-Prescr ibed Sub s Allowed: subs OK Medic ationGen ericName : metronid azole Not Available Not Available Not Available ipratropi um bromide 21 mcg (0.03 %) nasal spray SPRAY 2 SPRAYS 3 TIMES A DAY BY INTRANAS AL ROUTE active Not Available Not Available No t Available loratadin e 10 mg tablet 2020 active Medicati on ID: [id number] B rand Name: loratadi ne Send Method: E-Prescr ibed Sub s Allowed: subs OK Speci al Instruct ion: TAKE 1 TABLET BY MOUTH EVERY DAY Medi cationGe nericNam e: loratadi ne Not Available Not Available Not Available Arthritis Pain Relief (capsaici n) 0.075 % topical cream APPLY TO AFFECTED AREAS (FEET) 4 TIMES DAILY active Not Available Not Available No t Available cyclobenz aprine 5 mg tablet Take 1 tablet 3 times a day by oral route. active Not Available Not Available No t Available rosuvasta tin 10 mg tablet TAKE 1 TABLET BY MOUTH EVERY DAY active Not Available Not Available No t Available nitrofura ntoin monohydra te/macroc rystals 100 mg capsule TAKE 1 CAPSULE BY MOUTH TWICE A DAY FOR 7 DAYS 08/21 completed Not Available Not Available Not Available OneTouch UltraSoft Lancets USE TO CHECK [...] Updated DateTime 02/18/2024 157.48 cm 27.8 kg/m2 95873.04 g Vangie Michael [place] [facility] 02/18/2024 09:12:09 Date Recorded Body height Body mass index (BMI) Body weight Provider Name and Address Organization Details Last Updated DateTime 08/21/2024 157.48 cm 25.6 kg/m2 20202.93 rolf Michael [place] [facility] 08/21/2024 14:28:06 Social History None recorded. Functional Status None recorded. Mental Status None recorded. Family History Nothing Reported. Medical History No medical history recorded. Gynecological HistoryNo gynecological history recorded. Obstetrics History GPAL:G 0 P 0 0 0 0 Past Encounters Encounter ID Performer Location Encounter Start Date Encounter Closed Date Diagnosis/Indication Diagnosis SNOMED-CT Code Diagnosis ICD10 Code Diagnosis Note [id number] CRISTÓBAL MAGANA PA-C [facility] [address] [address] 02/18/2024 08:58:15 02/18/2024 09:40:13 Chronic rhinitis 10672681 J31.0 Pain in face 34636248 R5 1.9 [id number] CRISTÓBAL MAGANA PA-C [facility] 100 [place] [address] 08/21/2024 14:08:42 08/21/2024 14:55:22 Allergic rhinitis 66077832 J30.89 J30.9 Deviated nasal septum 12 6550779 J34.2 Anterior rhinorrhea 2772 72446 J34.89 Health Concerns Section Related Observation LastModified by Organization Detai ls LastModified Time None Recorded Concern Status LastModified by Organization Details LastModified Time None Recorded Advance Directives Directive None Recorded Payers Insurance Date Sequence Insurance Name Policy Number Policy Lynn Covered Member ID Lynn Member ID Guarantor Name 08/19/2024 1 [place] [employer] Marycarmen L Gillespie [id number] Marycarmen L Gillespie 09/29/2024 3 [place] [employer] Marycarmen L Gillespie [id number] Marycarmen L Gillespie 09/29/2024 2 UNICARE - SENIOR SERVICES PLAN F (MEDICARE SUPPLEMENT) [id number] Marycarmen L Gillespie [id number] Marycarmen L Gillespie Notes Date Note Type Note Provider [...] sores on the septum. MELANIE RODRIGUEZ MD [address] [place] [address], [place], [address], [facility] - [facility] 02/18/2024 17:28:02 08/21/2024 text/html 74 year old hayden trevizo presents for follow up on chronic allergic rhinitis and septal deviation. She reports her previous facial pressure has resolved but she still has constant clear rhinorrhea despite using Astelin every morning. Sometimes the left side of the nose bleeds a bit. She denies purulent rhinorrhea, frequent sneezing, and ocular itching. CT previously clear of mucosal thickening and sinonasal polyps. MELANIE RODRIGUEZ MD [address] [place] [address], [place], [address], [facility] - [facility] 08/21/2024 17:03:37 OBGyn Episode No OBEpisode recorded.
--- OUTSIDE RECORDS SUMMARY | 2024-11-28 15:27 | XMS_ITS | Data Portability ---
Author Organization HARSH[facility] Address [address] [place] [address] Care Team Providers Care Import Coordination And Production Head Name Role Phone IRON MULLIGAN Primary Care Provider Assessment No assessment recorded. Plan of Treatment Reminders Order Date Submit Date Provider Last Modified By Organization Details Last Modified Time Details Appointments None recorded. Lab None recorded. Referral None recorded. Procedures None recorded. Surgeries None recorded. Imaging None recorded. Medication Orders doxycycline hyclate 100 mg capsule 2022 023 [facility]acy #1972, [address] [place], [address], 3 13:32:14 montelukast 10 mg tablet 2022 023 [facility] #1972, [address] [place], [address], 3 13:32:14 Patient TargetsNo targets recorded. Patient Instructions Encounter Date Encounter Id Patient Instructions Last Modified By Organization Details Last Modified Time 08/22/2022 [id number] Acute Sinusitis: Care Instructions [email or web address] Not available 08/22/2022 13:32:12 Based on your [...] watery post nasal drip. 6. Saline Nasal Oxbow is recommended. Since an antibiotic was prescribed [...] if you have any questions or concerns. [email or web address] Not available 08/22/2022 13:31:44 Reason for Referral None Reported. Problems Name Problem SNOMED Code Status Onset Date Resolution Date Notes Provider Name and Address Organization Details Recorded Time Hypertensive disorder 77975267 Active 2022 Bev [place] null, [place] - [facility] 3 13:04:19 Diabetes mellitus 59631912 Active 2022 Bev [place] null, [place] - [facility] 3 13:04:27 Osteoporosis 19595696 Active 2022 Bev [place] null, [place] - [facility] 3 13:04:34 Hyperlipidemia 67872598 Active 2022 Bev [place] null, [place] - [facility] 3 13:04:39 Anxiety 30599426 Active 2022 Bev [place] null, [place] - [facility] 3 13:04:45 Spasm of back muscles 398974347 Active 2022 Bev [place] null, [place] - [...] Name and Address Organization Details Recorded Time 667292 Substance with sulfonami de structure and antibacte rial mechanism of action (substanc e) medicatio n hives Not available low 08/22/2022 14514 8003 SNOMED Bev plascencia [facility] - [facility] [...] saturation in Arterial blood by Pulse oximetry Pain severity - 0-10 verbal numeric rating [Score] - Reported Heart rate Respiratory rate Body temperature Systolic blood pressure Diastolic blood pressure Provider Name and Address Organization Details Last Updated DateTime 157.48 cm 27.4 kg/m2 40257.8 6 g 97 % 97 % 0 80 /min 20 /min 97.9 [degF] 105 mm[Hg] 74 mm[Hg] Bev Monson [employer] 13:07:35 Social History Question Answer Notes LastModified by [employer] Details LastModified Time Tobacco Smoking Status Never Smoker Bev plascencia PA [facility] [employer] 08/22/2022 13:05:08 Have You Had Direct Contact, Or Contact During Intimacy, With Monkeypox Rash, Scabs, Or Body Fluids From A Person With Monkeypox? No Information not available 08/22/2022 Have You Recently Traveled Abroad? No Information not available 08/22/2022 Sex: Unknown Functional Status Question Answer Note LastModified by [employer] Details LastModified Time Do you use any illicit or recreational drugs? No Information not available 08/22/2022 Do you or have you ever used any other forms of tobacco or nicotine? No Information not available 08/22/2022 What is your level of alcohol consumption? None Information not available 08/22/2022 Mental Status None recorded. Family History Relationship [...] Recorded Time zoster recombinant 0 completed Bev [place] null, [place] - [facility] 08/22/2022 13:02:55 zoster recombinant 0 completed Bev Iona null, [...] 30 mcg/0.3 mL dose 1 completed Bev [place] null, [place] - [facility] 08/22/2022 13:02:55 COVID-19, mRNA, LNP-S, PF, 30 mcg/0.3 mL dose, ming-sucrose 2 completed Bev [place] null, [place] - [facility] 08/22/2022 13:02:55 pneumococcal polysaccharide PPV23 4 completed Bev [place] null, [place] - [facility] 08/22/2022 13:02:55 Td(adult) unspecified formulation 5 completed Bev Iona null, [place] - [facility] 08/22/2022 13:02:55 Tdap 6 completed Bev [place] null, [place] - [facility] 08/22/2022 13:02:55 Pneumococcal conjugate PCV 13 8 completed Bev Iona null, [place] - [facility] 08/22/2022 13:02:55 zoster live 3 completed Bev [place]ona null, [place] - [facility] 08/22/2022 13:02:55 Influenza, high-dose, trivalent, PF 0 completed Bev [place] null, [place] - [facility] 08/22/2022 13:02:55 Influenza, high-dose, trivalent, PF 7 completed Bev Iona null, [place] - [facility] 08/22/2022 13:02:55 Influenza, high-dose, trivalent, PF 8 completed Bev Iona null, [place] - [facility] 08/22/2022 13:02:55 Influenza, high-dose, trivalent, PF 9 completed Bev [place] null, [place] - [facility] 08/22/2022 13:02:55 Influenza, high-dose, trivalent, PF 2 completed Bev [place] null, [place] - [facility] 08/22/2022 13:02:55 Influenza, high-dose, trivalent, PF 9 completed Bev Iona null, [place] - [facility] 08/22/2022 13:02:55 Influenza, split virus, trivalent, preservative 5 completed Bev [place] null, [place] - [facility] 08/22/2022 13:02:55 Influenza, split virus, trivalent, preservative 5 completed Bev [place] null, [place] - [facility] 08/22/2022 13:02:55 Influenza, split virus, trivalent, preservative 1 completed Bev [place] null, [place] - [facility] 08/22/2022 13:02:55 Influenza, split virus, trivalent, preservative 7 completed Bev Iona null, [place] - [facility] 08/22/2022 13:02:55 Influenza, split virus, trivalent, preservative 8 completed Bev Iona null, [place] - [facility] 08/22/2022 13:02:55 Influenza, split virus, trivalent, preservative 5 completed Bev [place] null, [place] - [facility] 08/22/2022 13:02:55 Influenza, split virus, trivalent, preservative 6 completed Bev [place] null, [place] - [facility] 08/22/2022 13:02:55 Influenza, split virus, trivalent, preservative 6 completed Bev [place] null, [place] - [facility] 08/22/2022 13:02:55 Influenza, split virus, trivalent, PF 3 completed Bev [place] null, [place] - [facility] 08/22/2022 13:02:55 Past Encounters Encounter ID Performer Location Encounter Start Date Encounter Closed Date Diagnosis/Indication Diagnosis SNOMED-CT Code Diagnosis ICD10 Code Diagnosis Note [id number] [address] [address] [address] [address] [place] [address] 09/16/2021 14:08:53 09/16/2021 17:02:30 [id number] [address] [facility] [address] [place] [address] 09/07/2020 12:07:58 09/07/2020 13:07:48 [id number] HARSHAD MEJIAS [address] [place] [address] 08/22/2022 10:54:33 08/22/2022 13:32:54 Acute sinusitis 22604249 J01.90 Continue your Saline Nasal Oxbow and Marie Use Humidifier in your home. Stay Warm. Health Concerns Section Related Observation LastModified by Organization Detai ls LastModified Time None Recorded Concern Status LastModified by Organization Details LastModified Time None Recorded Advance Directives Directive None Recorded Payers Insurance Date Sequence Insurance Name Policy Number Policy Lynn Covered Member ID Lynn Member ID Guarantor Name 08/22/2022 1 [place] [employer] Marycarmen Gillespie [id number] Marycarmen Gillespie 08/22/2022 2 [facility] [id number] Marycarmen Gillespie [id number] Marycarmen Gillespie Notes Date Note Type Note [...] history. HARSHAD MEJIAS [address] [place], [address], [place] - [facility] 08/22/2022 13:35:55 OBGyn Episode No OBEpisode recorded.
--- OUTSIDE RECORDS SUMMARY | 2024-11-28 15:28 | XMS_ITS | Encounter Summary ---
Author Organization [facility] Address [address] [place] [address] Care Team Providers Care Director Payment Name Role Phone Evaristo Hay Primary Care Provider [phone] Encounter Details Date Type Department Care Team (Late Contact Info) Description 06/01/2024 Lab Requisition [facility] - Main Lab [address] [facility] [place] [phone] Aiden Katz MD [address] [phone] Pyuria Social History Tobacco Use Types Packs/Day Years Used Date Smoking Tobacco: Never Smokeless Tobacco: Never Alcohol Use Standard Drinks/Week Comments No 0 (1 standard drink = 0.6 oz pur e alcohol) Comments Unknown Sex and Gender Information Value Date Recorded Sex Assigned at Female 07/24/2024 7:14 AM EST Legal Sex Female 11:07 AM EST Gender Identity Female 07/24/2024 7:14 AM EST Sexual Orientation Straight 07/24/2024 7: 14 AM EST documented as of this encounter Plan of Treatment Upcoming Encounters Date Type Department Care Team (Late Contact Info) Description 12/05/2024 3:30 PM EDT Office Visit Adult Medicine [facility] [address] [place] [address] Evaristo Hay PA [address] [place], [place] [phone] 05/23/2025 2:00 PM EST Office Visit [facility] [address] [place] [phone] Reddy Yi MD [address] [place] [address] Dr [address] [place] [address] documented as of this encounter Procedures Procedure Name Priority Date/Time Associated Diagnosis Comments BACTERIAL IDENTIFICATION AND SUSCEPTIBILITY, AEROBIC Routine 05/31/2024 12:00 AM EST Pyuria documented in this encounter Results * (ABNORMAL) Bacterial identification and susceptibility, aerobic (05/31/2024 12:00 AM EST) Culture, Bacterial ID and Sensitivity Klebsiella pneumoniae ssp pneumoniae(A) ARTI 06/02/2024 8:57 AM EST [facility] ([facility] Comment: This is an edited result. Previous organism was Gram negative bacilli on 06/01/2024 at 1116 EST. Other Urine specimen from urethra / Unknown 05/31/2024 06/01/2024 10:15 AM EST Narrative Organism Antibiotic Method Susceptibility Klebsiella pneumoniae ssp pneumoniae Amoxicillin/Clavulanate ARTI <=2 ug/ml: Susceptible Klebsiella pneumoniae ssp pneumoniae Ampicillin/Sulbactam ARTI 8 ug/ml: Susceptible Klebsiella pneumoniae ssp pneumoniae Piperacillin/Tazobactam ARTI <=4 ug/ml: Susceptible Klebsiella pneumoniae ssp pneumoniae Cefazolin (Urine) ARTI 2 ug/ml: Susceptible Klebsiella pneumoniae ssp pneumoniae Cefoxitin ARTI <=4 ug/ml: Susceptible Klebsiella pneumoniae ssp pneumoniae Ceftazidime ARTI <=0.5 ug/ml: Susceptible Klebsiella pneumoniae ssp pneumoniae Ceftriaxone ARTI <=0.25 ug/ml: Susceptible Klebsiella pneumoniae ssp pneumoniae Cefepime ARTI <=0.12 ug/ml: Susceptible Klebsiella pneumoniae ssp pneumoniae Meropenem ARTI <=0.25 ug/ml: Susceptible Klebsiella pneumoniae ssp pneumoniae Amikacin ARTI <=1 ug/ml: Susceptible Klebsiella pneumoniae ssp pneumoniae Gentamicin ARTI <=1 ug/ml: Susceptible Klebsiella pneumoniae ssp pneumoniae Ciprofloxacin ARTI <=0.06 ug/ml: Susceptible Klebsiella pneumoniae ssp pneumoniae Levofloxacin ARTI <=0.12 ug/ml: Susceptible Klebsiella pneumoniae ssp pneumoniae Nitrofurantoin ARTI 64 ug/ml: Intermediate Klebsiella pneumoniae ssp pneumoniae Trimethoprim/Sulfamethoxazo le ARTI <=20 ug/ml: Susceptible us Aiden Katz MD LAB MICROBIOLOGY - GENERAL ORDER YOLANDA Final Result Performing Organization Address City/State/[facility] Co de Phone Number [facility] ([facility] H[facility]PITAL LAB [address] [place] [address], documented in this encounter Visit Diagnoses Diagnosis Pyuria Other nonspecific finding on examination of urine documented in this encounter Care Teams Director Payment Relationship Specialty Start Date End Date Evaristo Hay PA [address] [place] [id number] PCP - General Internal Medicine 07/13/24 documented as of this encounter
--- OUTSIDE RECORDS SUMMARY | 2024-11-28 15:28 | XMS_ITS | Clinical Summary ---
Author Organization LL [address] [facility] Address [address] [place] [address] Phone Care Team Providers Care Fee Clerk Name Role Phone Evaristo Hay Primary Care Provider [phone] Allergies Active Allergy Reactions Criticality Noted Date Comments Alendronic Acid Itching Low 03/29/2018 Nsaids (Non-Steroidal Anti-I nflammatory Drug) Flushing Low 07/24/2024 Other Flushing Low 04/30/2005 Nsaids Sulfa (Sulfonamide Antibiotics) Hives Low 04/18 Medications azelastine (ASTELIN) 137 mcg (0.1 %) nasal spray 2 Sprays by Each Nare route 2 times daily. Use in each nostril as directed 3 Active blood-glucose meter kit Use to check blood sugar once a day 4 Active capsaicin (ZOSTRIX) 0.075 % cream Apply to affected areas (feet) 4 times daily 4 Active cyclobenzaprine (FLEXERIL) 5 mg tablet Take 5 mg by mouth 3 times daily as needed. Active CALCIUM CARBONATE ORAL Take 1 tablet by mouth 2 (two) times a day. 3 Active glucose blood test strip Use to check blood sugar once a day 4 01/10/20 25 Active pediatric multivitamin no.17 (CHILDREN'S CHEW MULTIVITAMIN ORAL) Take by mouth 1 (one) time each day. Active LORazepam (ATIVAN) 0.5 mg tablet Take 1 tablet (0.5 mg total) by mouth every 8 (eight) hours if needed. 4 Active timolol (TIMOPTIC) 0.5 % ophthalmic solution 2 Active metFORMIN XR (GLUCOPHAGE-XR) 500 mg 24 hr tabletIndications: Type 2 diabetes mellitus without complications (CMS/HCC V24, CMS/HCC V28) TAKE 2 TABLETS BY MOUTH DAILY (WITH BREAKFAST). AND TAKE 2 TABS IN THE EVENING 360 tablet 3 4 Active lancets (OneTouch Delica Plus Lancet) 30 gauge USE DIRECTED ONCE DAILY 200 each 1 4 Active rosuvastatin (CRESTOR) 10 mg tabletIndications: Mixed hyperlipidemia TAKE 1 TABLET BY MOUTH EVERY DAY 90 tablet 1 5 Active metroNIDAZOLE (METROGEL) 0.75 % gel Apply topically 2 (two) times a day. Apply to face in a thin layer twice daily after washing 45 g 5 Active metoprolol succinate (TOPROL-XL) 50 mg 24 hr tablet Take 1.5 tablets (75 mg total) by mouth 1 (one) time each day. 135 tablet 3 5 Active Active Problems Problem Noted Date Diagnosed Date Bloating 03/12/2022 Overview (06/12/2024): Last Assessment & Plan: Most likely GI in nature, but given early satiety as well, will obtain pelvic US to evaluate ovaries. She will schedule this and we will call with results when available. If normal, she will follow up with her PCP. Yu 12/01/2021 HTN (hypertension) 10/28/2020 Overview (06/12/2024): Last Assessment & Plan: The patient has a history of arterial hypertension. The patient's blood pressure today was noted to be well controlled. We'll continue the current antihypertensive medication regimen. Assessment & Plan (09/20/2024 11:25 AM EST): BP well controlled today and at home. Patient will continue to monitor her Bps at home and continue her current medical therapy. No changes made. PVC's (premature ventricular contractions) 10/04 Overview (06/12/2024): Last Assessment & Plan: The patient has a history of palpitations due to frequent PVCs. She has already been evaluated by the electrophysiology service who recommended continuing medical therapy with metoprolol and consideration of a cardiac MRI. On today's visit, the patient denies any palpitations. Will continue her current dose of metoprolol. Will proceed with a cardiac MRI to rule out an infiltrative cardiomyopathy, as recommended by the electrophysiology service. Assessment & Plan (09/20/2024 11:25 AM EST): Patient has a history of palpitations due to frequent PVCs. She has been evaluated by electrophysiology in the past who recommended continuing her current dose of metoprolol. She also underwent a cardiac MRI which did not show any evidence of infiltrative cardiomyopathy. She will continue her current regimen with metoprolol. We discussed the importance of maintaining adherence with CPAP therapy as well. She will notify me of any changes in duration or frequency. Obstructive sleep apnea 07/31/2020 Overview (06/12/2024): [facility] Polysomnogram Date 06/20/2021. Wt 155#; BMI 28. AHI 8; REM AHI 24; Obstructive apneas 0; Mixed apneas 0; Central apneas 0; Hypopneas 41; average oxygen saturation 95% (lowest 89%). - Obstructive Sleep Apnea - mild overall and moderate in REM; mostly hypopneas; without sleep related hypoventilation by 2020 split night polysomnogram. Last Assessment & Plan: The patient has a history of sleep apnea. She is supposed to wear her CPAP therapy every night. She does mention that she sometimes forgets to use her CPAP therapy. I counseled the patient regarding the importance of compliance with her CPAP therapy. She stated that she we will try to start using the CPAP therapy every night. Assessment & Plan (09/20/2024 11:25 AM EST): The patient will attempt to adhere to CPAP on a nightly basis. Breast mass, right 06/26/2020 Overview (06/12/2024): Last Assessment & Plan: I reviewed recent normal screening mammogram, but recommended targeted US and dx mammo of this area. She agreed. If normal, will refer to Breast [facility] due to palpable mass. Hyperlipidemia 06/11/2020 Overview (06/12/2024): Last Assessment & Plan: The patient has a history of hyperlipidemia. She is currently on rosuvastatin 10 mg orally daily. The cholesterol is well-controlled as noted on her last lipid panel. Will continue her current therapy. Assessment & Plan (09/20/2024 11:25 AM EST): Recent fasting lipid panel showed her cholesterol is well-controlled. She will continue her current statin therapy as prescribed. I have reviewed with the patient the importance of a heart healthy lifestyle which includes eating a low-fat low- salt diet, getting regular exercise, maintaining a healthy weight, not smoking, and following up with routine medical care. Osteoporosis 04/21/2019 Gastroesophageal reflux disease without esophagi tis 07/29/2017 PLMD (periodic limb movement disorder) 7 Overview (06/12/2024): 05/19/2017 PLMD identified on dx sleep study - primary care for evaluation/management Snoring 05/26/2017 Overview (06/12/2024): 05/19/2017 Dx study did not reveal sleep apnea. 02/2020 Home Sleep Study did not reveal sleep apnea or nocturnal hypoxia. Fibromyalgia 10/25/2014 Controlled diabetes mellitus type II without complication (CMS/[facility] V24, CMS/[facility] V28) 10/11/2013 Polymyalgia rheumatica (CMS/[facility] V24) 12/09/2010 Overview (06/12/2024): Onset September 2010. Dr. Gould Anemia 04/30/2005 Overview (06/12/2024): chronic---Give NO BLOOD(hindu reasons) IMO Update Fall 2015 Unspecified sinusitis (chronic) 04/30/2005 Overview (06/12/2024): IMO update Resolved Problems Problem Noted Date Diagnosed Date Resolved Date Cardiomyopathy ([facility] V24, [facility] V28) 03/17/2024 09/20/2024 Overview (06/12/2024): Last Assessment & Plan: The patient has a history of frequent PVCs. The patient has been evaluated by electrophysiology service in May 2023. It was determined that her PVCs are likely coming from the inferoseptal area of the right ventricle. Given the unusual area of the origin of the PVCs, the recommendation from the electrophysiology service was to consider a cardiac MRI to rule out the presence of an infiltrative cardiomyopathy, hypertrophic cardiomyopathy, or ARVD. As such, we will proceed with a cardiac MRI to rule out the presence of an infiltrative cardiomyopathy, hypertrophic cardiomyopathy, or ARVD. Chest pain 05/13/2022 09/20/2024 Overview (06/12/2024): Last Assessment & Plan: The patient came for evaluation due to episodes of chest pain. The description of the symptoms is consistent with atypical chest pain. The patient has the following risk factors for coronary artery disease: Hypertension and hyperlipidemia. Given the patient's age, gender, description of the symptoms, and risk factors for CAD, the patient has an increased risk for coronary artery disease. As such, will order a stress echocardiogram for evaluation of the patient's chest pain. Encounters Date Type Department Care Team Description 10/13/2024 Telephone Adult Medicine [address] [phone] Ingris Saenz [place] Rx request 09/20/2024 10:40 AM EST Office Visit [facility] [address] [place] [address] Alesha Garland NP Primary hypertension (Primary Dx); PVC's (premature ventricular contractions); Obstructive sleep apnea; Hyperlipidemia, unspecified hyperlipidemia type from Last 3 Months Immunizations Name Administration Dates Next Due Influenza trivalent, 0.5mL ( Fluad) 65yo and older 04/06/2024,03/17/2023,04/14/2022,03/27,03/07/2020,04/18/2019,04/02/2019 ,03/29/2018,03/23/2017 Influenza trivalent, 0.5mL, preservative free (Fluarix; FluLaval; Fluzone) ages 6mo and older (Afluria) 3 years and older 06/01/2016,04/04/2015,07/31/2014,08/04,04/16/2011,05/23/2008,05/12/2007 ,06/19/2006,05/29/2005 Influenza, Unspecified 03/27/2021 [employer] SARS-CoV-2 COVID-19, mRNA, LNP-S, preservative free 12/29/2021,09/13/2020 Pneumococcal conjugate 13 va lent (Prevnar 13, PCV13) 2mo and older 09/17/2017 Pneumococcal conjugate 20 va lent (Prevnar 20, PCV 20) 2mo and older 03/17/2023 Pneumococcal polysaccharide 23 valent (Pneumovax 23) 2yo and older 04/17/2014 Td Tetanus diptheria (Tdvax) 7yo and older 04/03/2005 Td, Unspecified 04/03/2005 Tdap Tetanus diptheria acell ular pertussis (Boostrix; Adacel) 7yo and older 06/01/2016 Zoster Live 08/04/2012 Zoster recombinant (Shingrix ) 19yo and older 06/17/2020,03/07/2020 Surgical History Surgery Date Site/Laterality Comments OTHER SURGICAL HISTORY PROCEDURE: MAMMOGRAM; COMMENT: 02/22/04 OTHER SURGICAL HISTORY PROCEDURE: PAP SMEAR (2 SLIDES); COMMENT: 03/2003 OTHER SURGICAL HISTORY PROCEDURE: NC LIG/TRNSXJ FLP TUBE ABDL/VAG APPR UNI/BI OTHER SURGICAL HISTORY PROCEDURE: HISTORICAL TOTAL HYSTERECTOMY W/O BSO COLONOSCOPY 2005 PROCEDURE: HISTORICAL COLONOSCOPY; COMMENT: negative screening exam. COLONOSCOPY 2017 PROCEDURE: HISTORICAL COLONOSCOPY; COMMENT: Negative screening examination. UPPER GASTROINTESTINAL ENDOSCOPY 07/20/2018 PROCEDURE: NC UPPER GI ENDOSCOPY PERFORMED; COMMENT: Visually normal at [facility]; antral bx done to check for H. pylori----negative. BREAST BIOPSY Left PROCEDURE: BX BREAST; PERC NEEDLE CORE W/IMAG GUID; COMMENT: b9 Medical History Medical History Date Comments Paroxysmal supraventricular tachycardia (CMS/HCC V24) 08/20/04 DX:Paroxysmal supraventricul ar tachycardia (HCC) Mitral valve disorders(424.0) 03/11/04 DX :Mitral valve disorders(424.0) Disorders of bursae and tend ons in shoulder region, unspecified 11/25/03 DX:Disorders of bursae an d tendons in shoulder region, unspecified Unspecified sinusitis (chronic) DX:Unspecified sinusitis (chronic) Anemia, unspecified DX:Anemia, u nspecified; COMMENT: chronic---Give NO BLOOD(hindu reasons) Anxiety state, unspecified DX:An xiety state, unspecified Heart disease, unspecified DX:He art disease, unspecified Calculus of kidney DX:Calculus o f kidney Special screening for malign ant neoplasms, colon 06/04/2006 DX:Special screening for mal ignant neoplasms, colon; COMMENT: Negative colonoscopy 06/04/2006, no colon cancer screening needed for 10 years. 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) Fibromyalgia 10/25/2014 DX:Fibromyalgia Gastroesophageal reflux dise ase without esophagitis 07/29/2017 DX:Gastroesophageal reflux d isease without esophagitis Osteoporosis 04/21/2019 DX:Osteoporosis Hyperlipidemia 06/11/2020 DX:Hyperlipidemi a HTN (hypertension) 10/28/2020 Family History Medical History Relation Name Comments Arthritis Father Coronary artery disease Father Lung cancer Father Arthritis Mother Coronary artery disease Mother Other cancer Son Blindness Neg Hx Breast cancer Neg Hx Cataracts Neg Hx Glaucoma Neg Hx Macular degeneration Neg Hx Strabismus Neg Hx Relation Name Status Comments Father (Age 72) LUNG CANCE R Mother (Age 82) KIDNEY NÉSTOR LURE SMOKER Sister Alive Son Social History Tobacco Use Types Packs/Day Years Used Date Smoking Tobacco: Never Smokeless Tobacco: Never Tobacco Cessation:Counseling Given: Not Answered Alcohol Use Standard Drinks/Week Comments No 0 (1 standard drink = 0.6 oz pur e alcohol) Housing Instability Answer Date Recorde d Are you worried that in the next 2 months you may not have stable housing? No 08/07/2024 Food Access & Nutrition Answer Date Rec orded Do you have access to a vari ety of food including fruits and vegetables? Yes 08/07/2024 Health Literacy Answer Date Recorded How often do you need to hav e someone help you when you read instructions, pamphlets, or other written material from your doctor or pharmacy? Never 08/07/2024 Caregiver: How often do you need to have someone help you when you read instructions, pamphlets, or other written material from your doctor or pharmacy? Not on file 08/07/2024 Financial Risk Answer Date Recorded How hard is it for you to pa y for the very basics like food, housing, medical care, and air conditioning / heating? Not very hard 08/07/2024 Transportation Answer Date Recorded Has the lack of transportati on kept you from meetings, work, or from getting things needed for daily living? No Has the lack of transportati on kept you from medical appointments or from getting medications? No 08/07/2024 Social Isolation Answer Date Recorded How often do you feel lonely or isolated from th ose around you? Never 08/07/2024 Food Risk Answer Date Recorded Within the past 12 months we worried whether our food would run out before we got money to buy more. Never true 08/07/2024 Within the past 12 months th e food we bought just didn't last and we didn't have money to get more. Never true 08/07/2024 Dependent Care Answer Date Recorded Do you need help finding or paying for care for your loved ones. For example, attendant children's institution or elderly care for an older adult? No 08/07/2024 Education Answer Date Recorded Do you think completing more education or training, like finishing a GED, going to college, or learning a trade, would be helpful for you? No 08/07/2024 Employment and Income Answer Date Recor ded During the last four weeks, have you been actively looking for work? No 08/07/2024 Living Situation Answer Date Recorded What is your living situation? 0 08/07/2024 Interpersonal Safety Answer Date Record ed Physical Abuse 07/24/2024 Verbal Abuse 07/24/2024 Comments No Sex and Gender Information Value Date Recorded Sex Assigned at Female 07/24/2024 7:14 AM EST Legal Sex Female 11:07 AM EST Gender Identity Female 07/24/2024 7:14 AM EST Sexual Orientation Straight 07/24/2024 7: 14 AM EST Obstetrics History Para Term AB IAB SAB Ectopic Multiple Livin g Live Births 5 5 5 5 Date Outcome GA Total Labor Labor/2nd/3rd Weight Sex Type Anes PTL Lulu A1 A5 Name Clin Term Term Term Term Term Last Filed Vital Signs Vital Sign Reading Time Taken Comments Blood Pressure 110/76 09/20/2024 10:40 AM EST Pulse 74 09/20/2024 10:40 AM EST Temperature 37.1 ??C (98.7 ??F) 08/07/2024 1:37 PM ES T Respiratory Rate 13 08/07/2024 1:37 PM EST Oxygen Saturation 98% 09/20/2024 10:40 AM EST Inhaled Oxygen Concentration - - Weight 63.5 kg (140 lb) 09/20/2024 10:40 AM EST Height 157.5 cm (5' 2 ) 09/20/2024 10:40 AM EST Body Mass Index 25.61 09/20/2024 10:40 AM EST Plan of Treatment Upcoming Encounters Date Type Department Care Team (Late st Contact Info) Description 12/05/2024 3:30 PM EDT Office Visit Adult Medicine [facility] [address] [place] [address] Evaristo Hay PA [address] [place] [address] 05/23/2025 2:00 PM EST Office Visit [facility] [address] [place] [phone] Reddy Yi MD [address] [place] [address] [address] [place] [address] Health Maintenance Due Date Last Done Comments Medicare Annual Wellness Visit 06/27/2022 COVID-19 Vaccine ( season) 2024 07/08/2023, 12/29/2021, 05/13/2021, Additional history exists Diabetes: Blood Sugar Control Test (HGBA1C) 02/01/2025 08/04/2024, 04/03/2024, 04/03/2024, Additional history exists Depression Screening 04/06/2025 04/06/2024 Diabetes: Annual Foot Exam 04/06/2025 04/06/2024 Falls Risk Assessment 07/24/2025 07/24/2024, 024 Diabetes: Annual Retina Eye Exam 08/01/2025 08/01/2024, 06/29/2023 Diabetes: Annual Urine Albumin-Creatinine Ratio (uACR) 08/04/2025 08/04/2024, 03/01/2024 Social Influencers of Health Screening 08/07/2025 08/07/2024 Diabetes: Annual GFR (Glomerular Filtration Rate) 08/25/2025 08/25/2024, 08/04/2024, 07/29/2024, Additional history exists Hypertension/CHF/CAD Annual BMP Blood Test 08/25/2025 08/25/2024, 08/04/2024, 07/29/2024, Additional history exists DTaP,Tdap,and Td Vaccines (4 - Td or Tdap) 06/01/2026 06/01/2016, 04/03/2005, 04/03/2005 Colorectal Cancer Screening: Colonoscopy 07/28/2026 07/28/2016 Breast Cancer Screening 08/01/2026 08/01/19, 07/22/2023, 08/06/2022, Additional history exists Cholesterol Screening (Lipid Panel) 08/04/2029 08/04/2024, 04/03/2024, 04/03/2024, Additional history exists Osteoporosis Screening (Bone Density Screening) 04/15/2033 04/15/2023, 11/22/2020, 10/06/2017 Hepatitis C Screening Completed 10/09/2013 Zoster Vaccines Completed 06/17/2020, 02/17, 08/04/2012 Pneumococcal Vaccine: 50+ Years Completed 03/17/2023, 09/17/2017, 04/17/2014 RSV Immunization Adult Patients Completed 07/08/2023 Influenza Vaccine Completed 04/06/2024, , 04/14/2022, Additional history exists HIB Vaccines Aged Out No longer eligi ble based on patient's age to complete this topic HPV Vaccines Aged Out No longer eligi ble based on patient's age to complete this topic Hepatitis A Vaccines Aged Out No long er eligible based on patient's age to complete this topic Hepatitis B Vaccines Aged Out No long er eligible based on patient's age to complete this topic IPV Vaccines Aged Out No longer eligi ble based on patient's age to complete this topic MMR Vaccines Aged Out No longer eligi ble based on patient's age to complete this topic Meningococcal ACWY Vaccine Aged Out N o longer eligible based on patient's age to complete this topic Meningococcal B Vaccine Aged Out No l onger eligible based on patient's age to complete this topic RSV Immunization Patients Under 20 months Aged Out No longer eligible based on patient's age to complete this topic Varicella Vaccines Aged Out No longer eligible based on patient's age to complete this topic Medical Devices Implanted Type Area Adjunct Political Science Instructor Device Identifier Shelf Expiration Date Model / Serial / Lot Stent Uret Stretch Vl 7fr 22-3 - Sn/A - [id number] Implanted:Qty: 1 on 07/24/2024 by Aiden Katz MD at [facility] Stents Left: Ureter [employer]G Y 12/07/2026 [id number] / N/A / [id number] Procedures Procedure Name Priority Date/Time Associated Diagnosis Comments CREATININE, SERUM Routine 08/25/2024 12: 37 PM EST Polymyalgia rheumatica ([facility] V24) MICROALBUMIN CREATININE URINE RATIO Routine 08/04/2024 10:21 AM EST HTN (hypertension) Hyperlipidemia Controlled diabetes mellitus type II without complication ([facility] V24, [facility] V28) Anemia HEMOGLOBIN A1C Routine 08/04/2024 10:21 AM EST HTN (hypertension) Hyperlipidemia Controlled diabetes mellitus type II without complication ([facility] V24, [facility] V28) Anemia LIPID PANEL WITH REFLEX TO DIRECT LDL Routine 08/04/2024 10:21 AM EST HTN (hypertension) Hyperlipidemia Controlled diabetes mellitus type II without complication ([facility] V24, [facility] V28) Anemia MG MAMMO DIGITAL SCREENING W JOHN BILAT Routine 08/01/2024 1:49 PM EST Encounter for screening mammogram for breast cancer DEPRESSION SCREENING Routine 04/06/2024 FALLS RISK ASSESSMENT Routine 04/06/2024 DIABETES FOOT EXAM Routine 04/06/2024 DIABETES EYE EXAM Routine 06/29/2023 DXA BONE DENSITY STUDY 1+ SITS AXIAL SKEL Routine 04/15/2023 11:06 AM EDT Encounter for screening for depression Type 2 diabetes mellitus without complications ([facility] V24, [facility] V28) Essential (primary) hypertension Mixed hyperlipidemia Obstructive sleep apnea (adult) (pediatric) Age-related osteoporosis without current pathological fracture Gastro-esophageal reflux disease without esophagitis COLONOSCOPY Routine 07/28/2016 HEPATITIS C SCREENING Routine 10/09/2013 from Last 3 Months or Most Recently Relevant to Health Maintenance Results * Creatinine (08/25/2024 12:37 PM EST) Creatinine 0.74 0.50 - 1.10 mg/dL LAB CHEMISTRY METHOD 08/25/2024 4:57 PM EST [facility] eGFR 86 >=60 mL/min/1. 73m2 LAB CHEMISTRY METHOD 08/25/2024 4:57 PM EST [facility] Comment:Calculation based on the??Chronic Kidney Disease Epidemiology Collaboration (CKD-EPI) equation refit??without adjustment for race. Blood Venous blood specimen / Unknown Venipuncture / Unknown 08/25/2024 12:37 PM EST 08/25/2024 12:37 PM EST us Christopher Tse MD LAB BLOOD ORDERABLES Sybil shadia Result [facility] [address] [place] [address], [place] [phone] * Lipid panel with reflex to direct LDL (08/04/2024 10:21 AM EST) Cholesterol 138 0 - 200 mg/dL LAB CHEMISTRY METHOD 08/04/2024 2:41 PM [facility] Triglycerides 99 0 - 150 mg/dL LAB CHEMISTRY METHOD 08/04/2024 2:41 PM [facility] HDL 57 >=40 mg/dL LAB CHEMISTRY METHOD 08/04/2024 2:41 PM [facility] LDL Calculated 61 0 - 100 mg/dL LAB CHEMISTRY METHOD 08/04/2024 2:41 PM [facility] VLDL Cholesterol Jaden 19.8 mg/dL LAB CHEMISTRY METHOD 08/04/2024 2:41 PM [facility] Non HDL Chol. (LDL+VLDL) 81 <145 mg/dL LAB CHEMISTRY METHOD 08/04/2024 2:41 PM [facility] Chol/HDL Ratio 2.4 0.0 - 4.4 LAB CHEMISTRY METHOD 08/04/2024 2:41 PM [facility] Blood Venous blood specimen / Unknown Venipuncture / Unknown 08/04/2024 10:21 AM EST 08/04/2024 10:21 AM EST us Amara Chan PATRICIA LAB BLOOD ORDERABLES Final Resul t [facility] [address] [place] [address], * Microalbumin creatinine urine ratio (08/04/2024 10:21 AM EST) Creatinine, Urine 122.0 mg/dL LAB CHEMISTRY METHOD 08/04/2024 2:42 PM [facility] Microalb, Ur 12.0 0.0 - 29.0 mg/L LAB CHEMISTRY METHOD 08/04/2024 2:42 PM [facility] Microalb/Creat Ratio 10 <30 mg/g creat LAB CHEMISTRY METHOD 08/04/2024 2:42 PM [facility] Urine Urine specimen obtained by clean catch procedure / Unknown Non-blood Collection / Unknown 08/04/2024 10:21 AM EST 08/04/2024 10:21 AM EST us Amara PATRICIA LAB URINE ORDERABLES Final Resul t Performing Organization Address [facility] Co de Phone Number [facility] [address] [place] [address], [place] [phone] * (ABNORMAL) Hemoglobin A1c (08/04/2024 10:21 AM EST) Hemoglobin A1C 6.9(H) <6.5 % LAB CHEMISTRY METHOD 08/04/2024 1:40 PM EST [facility] Mean Bld Glu Estim. 151 mg/dL LAB CHEMISTRY METHOD 08/04/2024 1:40 PM EST [facility] Blood Venous blood specimen / Unknown Venipuncture / Unknown 08/04/2024 10:21 AM EST 08/04/2024 10:21 AM EST us Amara PATRICIA LAB BLOOD ORDERABLES Final Resul t Performing Organization Address [facility] [facility] de Phone Number [facility] [address] [place] [address], [place] [phone] * MG Mammo Digital Screening w John bilat (08/01/2024 1:49 PM EST) Anatomical Region Laterality Modality Breast Bilateral Mammography 08/02/2024 8:44 AM EST Impressions 08/02/2024 8:59 AM EST BILATERAL BREASTS: Benign, no evidence of malignancy. Normal interval follow-up is recommended in 12 months. BREAST DENSITY: C - The breasts are heterogeneously dense which may obscure small masses. BI-RADS CATEGORY: 2 - BENIGN RECOMMENDATION: Screening bilateral mammogram is recommended in 1 year. Mammo Location: [facility], [address], [place], [address], . -------- FINAL REPORT -------- Dictated By: Sarah Buchanan Dictated Date: 08/02/2024 08:44 ET Assigned Physician: Sarah Buchanan Reviewed and Electronically Signed By: Sarah Buchanan Signed Date: 08/02/2024 08:59 ET Workstation ID: [id number] Transcribed By: Self Edit Transcribed Date: 08/02/2024 08:47 ET Narrative 08/02/2024 8:59 AM EST STUDY: Bilateral screening mammography with tomosynthesis and CAD TECHNIQUE: Bilateral full-field digital screening mammography is obtained and read in conjunction with computer-aided detection. ??Tomosynthesis as well as 2-D C view imaging were obtained. ?? COMPARISON: Comparison made to multiple prior, most recent July 22, 2023, and most remote June 04, 2015. RIGHT BREAST: No significant masses, suspicious calcifications or other abnormalities are seen. LEFT BREAST: ??Tissue marker from previous needle core biopsy. No significant masses, suspicious calcifications or other abnormalities are seen. Procedure Note Sarah Buchanan MD - 08/02/2024 STUDY: Bilateral screening mammography with tomosynthesis and CAD TECHNIQUE: Bilateral full-field digital screening mammography is obtainedand read in conjunction with computer-aided detection. Tomosynthesis aswell as 2-D C view imaging were obtained. COMPARISON: Comparison made to multiple prior, most recent July, and most remote June 04, 2015. RIGHT BREAST: No significant masses, suspicious calcifications or otherabnormalities are seen. LEFT BREAST: Tissue marker from previous needle core biopsy. Nosignificant masses, suspicious calcifications or other abnormalities areseen. IMPRESSION: BILATERAL BREASTS: Benign, no evidence of malignancy. Normal intervalfollow-up is recommended in 12 months. BREAST DENSITY: C - The breasts are heterogeneously dense which mayobscure small masses. BI-RADS CATEGORY: 2 - BENIGN RECOMMENDATION: Screening bilateral mammogram is recommended in 1 year. Mammo Location: [facility], [address] [place] [address], [address], . -------- FINAL REPORT -------- Dictated By: Sarah Buchanan Dictated Date: 08/02/2024 08:44 ET Assigned Physician: Sarah Buchanan Reviewed and Electronically Signed By: Sarah Buchanan Signed Date: 08/02/2024 08:59 ET Workstation ID: [id number] Transcribed By: Self Edit Transcribed Date: 08/02/2024 08:47 ET Evaristo PATRICIA IMG BI PROCEDURES Final R esult * Falls Risk Assessment (04/06/2024) [facility] Falls Risk Assessment abstracted Result [facility] Provider MD HEALTH MAINTENANCE Final Result * Depression Screening (04/06/2024) [facility] Depression Screening abstracted Result [facility] Provider MD HEALTH MAINTENANCE Final Result * Diabetes Foot Exam (04/06/2024) [facility] Diabetes: Annual Foot Exam abstracted Result [facility] Provider MD HEALTH MAINTENANCE Final Result * Diabetes Eye Exam (06/29/2023) [facility] Diabetes: Annual Retina Eye Exam abstracted Result [facility] Provider MD HEALTH MAINTENANCE Final Result * DXA BONE DENSITY STUDY 1+ SITS AXIAL SKEL (04/15/2023 11:06 AM EDT) Anatomical Region Laterality Modality Bone Densitometr y 01/13/2023 2:58 PM EDT Narrative 04/15/2023 2:46 PM EDT BONE DENSITY ? Lumbar Spine T-score is -1.9 ?? (SD relative to 20-29 y/o adult) Z-score is +0.3 ??(SD relative to age matched peers) This is consistent with osteopenia by criteria defined by the WHO. Left Hip T-score is -2.4 Z-score is -0.5 This is consistent with osteopenia by criteria defined by the WHO. Comparison exam(s): significant increase in bone density of ??hip when compared to most recent bone density examination ?? Confidence level is +/-95%. Impression: Based on the World Health Organization criteria, Marycarmen Gillespie should be classified as having osteopenia. This patient has a 22% risk of major osteoporotic fracture and a 7.9% risk of hip fracture over the next 10 years. (World Health Organization Fracture Risk Assessment) [facility] Department of Internal Medicine recommends using National Osteoporosis Foundation (NOF) guidelines in treatment decisions related to osteoporosis. NOF guidelines suggest considering treatment for postmenopausal women and men aged 50 or older presenting with the following: History of hip or vertebral fracture. T-score less than or equal to -2.5 (DXA) at the femoral neck, total hip, or spine, after appropriate evaluation to exclude secondary causes. Low bone mass (T-score between -1.0 and -2.5 at the femoral neck or spine) AND a 10-year probability of a hip fracture greater than or equal to 3% OR a 10-year probability of a major osteoporosis-related fracture greater than or equal to 20% based on the [place]-adapted WHO algorithm Please note that all treatment decisions require clinical judgment and consideration of individual patient factors, including patient preferences, co-morbidities, previous drug use, risk factors not captured in the FRAX model (e.g., frailty, falls, vitamin D deficiency, increased bone turnover, interval significant decline in bone density) and possible under- or over-estimation of fracture risk by FRAX. Procedure Note Franco Leon MD - 08/24/2023 BONE DENSITY Lumbar Spine T-score is -1.9 (SD relative to 20-29 y/o adult) Z-score is +0.3 (SD relative to age matched peers) This is consistent with osteopenia by criteria defined by the WHO. Left Hip T-score is -2.4 Z-score is -0.5 This is consistent with osteopenia by criteria defined by the WHO. Comparison exam(s): significant increase in bone density of hip whencompared to most recent bone density examination Confidence level is +/-95%. Impression: Based on the World Health Organization criteria, Marycarmen Gillespie shouldbe classified as having osteopenia. This patient has a 22% risk of majorosteoporotic fracture and a 7.9% risk of hip fracture over the next 10years. (World Health Organization Fracture Risk Assessment) [facility] Department of Internal Medicine recommendsusing National Osteoporosis Foundation (NOF) guidelines in treatmentdecisions related to osteoporosis. NOF guidelines suggest consideringtreatment for postmenopausal women and men aged 50 or older presentingwith the following: History of hip or vertebral fracture. T-score less than or equal to -2.5 (DXA) at the femoral neck, total hip,or spine, after appropriate evaluation to exclude secondary causes. Low bone mass (T-score between -1.0 and -2.5 at the femoral neck or spine)AND a 10-year probability of a hip fracture greater than or equal to 3% ORa 10-year probability of a major osteoporosis-related fracture greaterthan or equal to 20% based on the [place]-adapted WHO algorithm Please note that all treatment decisions require clinical judgment andconsideration of individual patient factors, including patientpreferences, co-morbidities, previous drug use, risk factors not capturedin the FRAX model (e.g., frailty, falls, vitamin D deficiency, increasedbone turnover, interval significant decline in bone density) and possibleunder- or over-estimation of fracture risk by FRAX. Evaristo PATRICIA [facility] DXA PROCEDURES Final Result * Colonoscopy (07/28/2016) [facility] Colonoscopy normal abstracted Anatomical Region Laterality Modality Other Historical Provider HEALTH MAINTENANCE Final Result * Hepatitis C Screening (10/09/2013) [facility] Hepatitis C Screening abstracted [facility] Provider HEALTH MAINTENANCE Final Result from Last 3 Months or Most Recently Relevant to Health Maintenance Insurance MEDICARE MEDICAID - [place] [facility] Care Teams Fee Clerk Relationship Specialty Start Date End Date Evaristo Hay PA [address] [place] [address] PCP - General Internal Medicine 07/13/24
== END 2024-11-28 14:56 | disposition home or self-care (01) ==
PROVIDERS: PCP Internal Medicine; Visit Provider Internal Medicine Rheumatology
DX: M35.3 Polymyalgia rheumatica (principal); R25.2 Cramp and spasm; M79.7 Fibromyalgia
CPT/HCPCS: 99214; G2211

== ENCOUNTER 2024-11-28 14:13 | Outpatient (REF) | payer MEDICARE, OTHER, SELFPAY ==
--- OUTSIDE RECORDS SUMMARY | 2024-11-28 16:03 | XMS_ITS | Encounter Summary ---
Author Organization [facility] Address [address] [place] [address] Care Team Providers Care Knotter Name Role Phone Evaristo Hay Primary Care Provider [phone] Encounter Details Date Type Department Care Team (Late Contact Info) Description 06/01/2024 Lab Requisition [facility] - Main Lab [address] [facility] [place] [phone] Aiden Katz MD [address] [phone] Pyuria Social History Tobacco Use Types Packs/Day [...] 3:30 PM EDT Office Visit Adult Medicine [facility] [address] [place] [address] Evaristo Hay PA [address] [place], [place] [phone] 05/23/2025 2:00 PM EST Office Visit [facility] [address] [place] [phone] Reddy Yi MD [address] [place] [address] Dr [address] [place] [address] documented as of this encounter Procedures Procedure Name Priority Date/Time Associated Diagnosis Comments BACTERIAL IDENTIFICATION AND SUSCEPTIBILITY, AEROBIC Routine 05/31/2024 12:00 AM EST Pyuria documented in this encounter Results * (ABNORMAL) Bacterial identification and susceptibility, aerobic (05/31/2024 12:00 AM EST) Culture, Bacterial ID and Sensitivity Klebsiella pneumoniae ssp pneumoniae(A) ARTI 06/02/2024 8:57 AM EST [facility] Comment: This is an edited result. [...] ORDER YOLANDA Final Result Performing Organization Address City/State/[place] Co de Phone Number [facility] H[facility] [address] [place] [address], documented in this encounter Visit Diagnoses Diagnosis Pyuria Other nonspecific finding on examination of urine documented in this encounter Care Teams Knotter Relationship Specialty Start Date End Date Evaristo Hay PA [address] [place] [id number] PCP - General Internal Medicine 07/13/24 documented as of this encounter
--- OUTSIDE RECORDS SUMMARY | 2024-11-28 16:03 | XMS_ITS | Clinical Summary ---
Author Organization LL [address] [facility] Address [address] [place] [address] Phone Care Team Providers Care Toy Painter Name Role Phone Evaristo Hay Primary Care Provider [phone] Allergies Active Allergy Reactions Criticality Noted Date [...] frequency. Obstructive sleep apnea 07/31/2020 Overview (06/12/2024): [facility] [place]ysomnogram Date 06/20/2021. Wt 155#; BMI 28. [...] Controlled diabetes mellitus type II without complication (CMS/[facility] V24, CMS/[facility] V28) 10/11/2013 Polymyalgia rheumatica (CMS/[facility] V24) 12/09/2010 Overview (06/12/2024): Onset September 2010. Dr. Gould Anemia 04/30/2005 Overview (06/12/2024): chronic---Give NO BLOOD(restorationist reasons) IMO Update Fall 2015 Unspecified sinusitis (chronic) 04/30/2005 Overview (06/12/2024): IMO update Resolved Problems Problem Noted Date Diagnosed Date Resolved Date Cardiomyopathy ([facility] V24, [facility] V28) 03/17/2024 09/20/2024 Overview (06/12/2024): Last Assessment [...] Care Team Description 10/13/2024 Telephone Adult Medicine [address] [phone] Ingris Saenz [place] Rx request 09/20/2024 10:40 AM EST Office Visit [facility] - [facility] [address] [place] [address] Alesha Garland NP Primary hypertension (Primary Dx); PVC's (premature ventricular contractions); Obstructive sleep apnea; Hyperlipidemia, unspecified hyperlipidemia type from Last 3 Months Immunizations Name Administration Dates Next Due Influenza trivalent, 0.5mL ( Fluad) 65yo and older 04/06/2024,03/17/2023,04/14/2022,03/27,03/07/2020,04/18/2019,04/02/2019 ,03/29/2018,03/23/2017 Influenza trivalent, 0.5mL, preservative free (Fluarix; FluLaval; Fluzone) ages 6mo and older (Afluria) 3 years and older 06/01/2016,04/04/2015,07/31/2014,08/04,04/16/2011,05/23/2008,05/12/2007 ,06/19/2006,05/29/2005 Influenza, Unspecified 03/27/2021 Auctelia SARS-CoV-2 COVID-19, mRNA, LNP-S, preservative free 12/29/2021,09/13/2020 [...] SLIDES); COMMENT: 03/2003 OTHER SURGICAL HISTORY PROCEDURE: DE LIG/TRNSXJ FLP TUBE ABDL/VAG APPR UNI/BI OTHER SURGICAL HISTORY PROCEDURE: HISTORICAL TOTAL HYSTERECTOMY W/O BSO COLONOSCOPY 2005 PROCEDURE: HISTORICAL COLONOSCOPY; COMMENT: negative screening exam. COLONOSCOPY 2017 PROCEDURE: HISTORICAL COLONOSCOPY; COMMENT: Negative screening examination. UPPER GASTROINTESTINAL ENDOSCOPY 07/20/2018 PROCEDURE: DE UPPER GI ENDOSCOPY PERFORMED; COMMENT: Visually normal [...] unspecified DX:Anemia, u nspecified; COMMENT: chronic---Give NO BLOOD(restorationist reasons) Anxiety state, unspecified DX:An xiety state, [...] care for your loved ones. For example, early childhood education instructor or elderly care for an older adult? [...] 3:30 PM EDT Office Visit Adult Medicine [facility] [address] [place] [address] Evaristo Hay PA [address] [place] [address] 05/23/2025 2:00 PM EST Office Visit [facility] [address] [place] [phone] Reddy Yi MD [address] [place] [address] Dr [address]ay [address] [place] [address] Health Maintenance Due Date Last Done Comments [...] this topic Medical Devices Implanted Type Area Asphalt Roller Operator Device Identifier Shelf Expiration Date Model / Serial / Lot Stent Uret Stretch Vl 7fr 22-3 - Sn/A - [id number] Implanted:Qty: 1 on 07/24/2024 by Aiden Katz MD at [facility] Stents Left: Ureter [employer] Y 12/07/2026 [id number] / N/A / [id number] Procedures Procedure Name Priority Date/Time Associated Diagnosis Comments CREATININE, SERUM Routine 08/25/2024 12: 37 PM EST Polymyalgia rheumatica ([facility] V24) MICROALBUMIN CREATININE URINE RATIO Routine 08/04/2024 10:21 AM EST HTN (hypertension) Hyperlipidemia Controlled diabetes mellitus type II without complication ([facility] V24, [facility] V28) Anemia HEMOGLOBIN A1C Routine 08/04/2024 10:21 AM EST HTN (hypertension) Hyperlipidemia Controlled diabetes mellitus type II without complication ([facility] V24, CMS/[facility] V28) Anemia LIPID PANEL WITH REFLEX TO DIRECT LDL Routine 08/04/2024 10:21 AM EST HTN (hypertension) Hyperlipidemia Controlled diabetes mellitus type II without complication ([facility] V24, [facility] V28) Anemia MG MAMMO DIGITAL SCREENING W [...] depression Type 2 diabetes mellitus without complications ([facility] V24, [facility] V28) Essential (primary) hypertension Mixed hyperlipidemia Obstructive sleep apnea (adult) (pediatric) Age-related osteoporosis without current pathological fracture Gastro-esophageal reflux disease without esophagitis COLONOSCOPY Routine 07/28/2016 HEPATITIS C SCREENING Routine 10/09/2013 from Last 3 Months or Most Recently Relevant to Health Maintenance Results * Creatinine (08/25/2024 12:37 PM EST) Creatinine 0.74 0.50 - 1.10 mg/dL LAB CHEMISTRY METHOD 08/25/2024 4:57 PM EST [facility] eGFR 86 >=60 mL/min/1. 73m2 LAB CHEMISTRY METHOD 08/25/2024 4:57 PM EST [facility] Comment:Calculation based on the??Chronic Kidney Disease Epidemiology Collaboration (CKD-EPI) equation refit??without adjustment for race. Blood Venous blood specimen / Unknown Venipuncture / Unknown 08/25/2024 12:37 PM EST 08/25/2024 12:37 PM EST us Christopher Tse MD LAB BLOOD ORDERABLES Sybil shadia Result [facility] [address] [place] [address], [place] [phone] * Lipid panel with reflex to direct LDL (08/04/2024 10:21 AM EST) Cholesterol 138 0 - 200 mg/dL LAB CHEMISTRY METHOD 08/04/2024 2:41 PM [facility] Triglycerides 99 0 - 150 mg/dL LAB CHEMISTRY METHOD 08/04/2024 2:41 PM [facility] HDL 57 >=40 mg/dL LAB CHEMISTRY METHOD 08/04/2024 2:41 PM [facility] LDL Calculated 61 0 - 100 mg/dL LAB CHEMISTRY METHOD 08/04/2024 2:41 PM [facility] VLDL Cholesterol Jaden 19.8 mg/dL LAB CHEMISTRY METHOD 08/04/2024 2:41 PM [facility] Non HDL Chol. (LDL+VLDL) 81 <145 mg/dL LAB CHEMISTRY METHOD 08/04/2024 2:41 PM [facility] Chol/HDL Ratio 2.4 0.0 - 4.4 LAB CHEMISTRY METHOD 08/04/2024 2:41 PM [facility] Blood Venous blood specimen / Unknown Venipuncture / Unknown 08/04/2024 10:21 AM EST 08/04/2024 10:21 AM EST us Amara Chan PATRICIA LAB BLOOD ORDERABLES Final Resul t [facility] [address] [place] [address], * Microalbumin creatinine urine ratio (08/04/2024 10:21 AM EST) Creatinine, Urine 122.0 mg/dL LAB CHEMISTRY METHOD 08/04/2024 2:42 PM [facility] Microalb, Ur 12.0 0.0 - 29.0 mg/L LAB CHEMISTRY METHOD 08/04/2024 2:42 PM [facility] Microalb/Creat Ratio 10 <30 mg/g creat LAB CHEMISTRY METHOD 08/04/2024 2:42 PM [facility] Urine Urine specimen obtained by clean catch procedure / Unknown Non-blood Collection / Unknown 08/04/2024 10:21 AM EST 08/04/2024 10:21 AM EST us Amara PATRICIA LAB URINE ORDERABLES Final Resul t Performing Organization Address [facility] Co de Phone Number [facility] [address] [place] [address], [place] [phone] * (ABNORMAL) Hemoglobin A1c (08/04/2024 10:21 AM EST) Hemoglobin A1C 6.9(H) <6.5 % LAB CHEMISTRY METHOD 08/04/2024 1:40 PM EST [facility] Mean Bld Glu Estim. 151 mg/dL LAB CHEMISTRY METHOD 08/04/2024 1:40 PM EST [facility] Blood Venous blood specimen / Unknown Venipuncture / Unknown 08/04/2024 10:21 AM EST 08/04/2024 10:21 AM EST us Amara PATRICIA LAB BLOOD ORDERABLES Final Resul t Performing Organization Address [facility] de Phone Number [facility] [address] [place] [address], [place] [phone] * MG Mammo Digital Screening w John [...] is recommended in 1 year. Mammo Location: [facility], [address] [place], [place], [address], . -------- FINAL REPORT -------- Dictated By: Sarah Buchanan Dictated Date: 08/02/2024 08:44 ET Assigned Physician: Saarh Buchanan Reviewed and Electronically Signed By: Sarah Buchanan Signed Date: 08/02/2024 08:59 ET Workstation ID: [id number] Transcribed By: Self Edit Transcribed Date: 08/02/2024 [...] is recommended in 1 year. Mammo Location: [facility], [address] [place] [address], [address], . -------- FINAL REPORT -------- Dictated By: Sarah Buchanan Dictated Date: 08/02/2024 08:44 ET Assigned Physician: Sarah Buchanan Reviewed and Electronically Signed By: Sarah Buchanan Signed Date: 08/02/2024 08:59 ET Workstation ID: [id number] Transcribed By: Self Edit Transcribed Date: 08/02/2024 08:47 ET Evaristo PATRICIA IMG BI PROCEDURES Final R esult * Falls Risk Assessment (04/06/2024) [facility] Falls Risk Assessment abstracted Result [facility] Provider MD HEALTH MAINTENANCE Final Result * Depression Screening (04/06/2024) [facility] Depression Screening abstracted Result [facility] Provider MD HEALTH MAINTENANCE Final Result * Diabetes Foot Exam (04/06/2024) [facility] Diabetes: Annual Foot Exam abstracted Result [facility] Provider MD HEALTH MAINTENANCE Final Result * Diabetes Eye Exam (06/29/2023) [facility] Diabetes: Annual Retina Eye Exam abstracted Result [facility] Provider MD HEALTH MAINTENANCE Final Result [...] (World Health Organization Fracture Risk Assessment) [facility] Department of Internal Medicine recommends using National [...] (World Health Organization Fracture Risk Assessment) [facility] Department of Internal Medicine recommendsusing National Osteoporosis [...] of fracture risk by FRAX. Evaristo PATRICIA [facility] DXA PROCEDURES Final Result * Colonoscopy (07/28/2016) [facility] Colonoscopy normal abstracted Anatomical Region Laterality Modality Other Historical Provider HEALTH MAINTENANCE Final Result * Hepatitis C Screening (10/09/2013) [facility] Hepatitis C Screening abstracted [facility] Provider HEALTH MAINTENANCE Final Result from Last 3 Months or Most Recently Relevant to Health Maintenance Insurance MEDICARE [place] - [place] [facility] Care Teams Toy Painter Relationship Specialty Start Date End Date Evaristo Hay PA [address] [place] [address] PCP - General Internal Medicine 07/13/24
[2024-11-28 18:46] LABS: Calcium 9.9 mg/dL (8.4-10.2); Magnesium 1.9 mg/dL (1.6-2.6); Potassium 4.4 mmol/L (3.3-5.1)
[2024-11-28 19:21] LABS: Erythrocyte Sedimentation Rate 12 MM/HR (0-20)
[2024-12-02 06:19] LABS: Aldolase 2.9 U/L (<=8.1)
== END 2024-11-28 14:14 | disposition home or self-care (01) ==
LOC: HO.HKASLDS 14:13
PROVIDERS: PCP Internal Medicine; Visit Provider Internal Medicine Rheumatology
DX: M35.3 Polymyalgia rheumatica (principal); R25.2 Cramp and spasm; M79.7 Fibromyalgia; Z79.899 Other long term (current) drug therapy
CPT/HCPCS: 36415; 82085; 82306; 82310; 83735; 84132; 85652; 99212

== ENCOUNTER 2024-12-06 13:32 | Outpatient (REF) | payer MEDICARE, OTHER, MEDICAID, SELFPAY ==
--- OUTSIDE RECORDS SUMMARY | 2024-12-06 14:05 | XMS_ITS | Encounter Summary ---
Author Organization [facility] Address [address] [place] [address] Care Team Providers Care Counseling Case Manager Name Role Phone Evaristo Hay Primary Care Provider [phone] Reason for Visit * Reason Comments Med Refill Encounter Details Date Type Department Care Team (Late st Contact Info) Description 12/05/2024 3:30 PM EDT Office Visit Adult Medicine [facility] [address] [place] [address] Evaristo Hay PA [address] [place] [address] Controlled type 2 diabetes mellitus without complication, without long-term current use of insulin ([facility] V24, [facility] V28) (Primary Dx); Anemia, unspecified type; Gastroesophageal reflux disease without esophagitis; Primary hypertension; Hyperlipidemia, unspecified hyperlipidemia type; Obstructive sleep apnea; PVC's (premature ventricular contractions); Osteoporosis, unspecified osteoporosis type, unspecified pathological fracture presence; Polymyalgia rheumatica ([facility] V24) Social History Tobacco Use Types Packs/Day Years [...] your loved ones. For example, early childhood teacher or elderly care for an older adult? [...] AM EST documented as of this encounter Last Filed Vital Signs Vital Sign Reading Time Taken Comments Blood Pressure 108/63 12/05/2024 3:04 PM EDT Pulse - - Temperature 37.1 ??C (98.7 ??F) 12/05/2024 3:04 PM ED T Respiratory Rate 14 12/05/2024 3:04 PM EDT Oxygen Saturation 99% 12/05/2024 3:04 PM EDT Inhaled Oxygen Concentration - - Weight 67.1 kg (148 lb) 12/05/2024 3:04 PM EDT Height 157.5 cm (5' 2 ) 12/05/2024 3:04 PM EDT Body Mass Index 27.07 12/05/2024 3:04 PM EDT documented in this encounter Ordered Prescriptions Prescription Sig Dispense Quantity Refills Last Filled Start Date End Date famotidine (PEPCID) 20 mg tablet Take 1 tablet (20 mg total) by mouth 2 (two) times a day if needed (acid symptoms). 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 Pt has readings with her. 124 fsbs * HARSHAD Chaudhary - 12/05/2024 3:30 PM EDT CHIEF COMPLAINT: Med Refill IDENTIFIER: Marycarmen Gillespie is a 74 y.o. old female. HPI: This pleasant patient presents today for follow-up. Overall seems to be doing well sugars are undercontrol. Her blood pressure is on the lower side probably thanks to the lifestyle efforts. She has been skipping the metoprolol when the blood pressure is running lower we talked about doing 25 mg daily. ROS: GENERAL: Negative for malaise, significant weight loss and fever RESPIRATORY: No cough, wheezing or shortness of breath CARDIOVASCULAR: Negative for chest pain, leg swelling and palpitations ENDOCRINE: Negative for cold or heat intolerance, polyuria, polydipsia and goiter NEURO: No persistent headache, fainting, seizures, strokes, TIAs, weakness, numbness or tingling PAST MEDICAL HISTORY: Patient Active Problem List Diagnosis Date Noted Bloating 03/12/2022 Rosacea 12/01/2021 HTN (hypertension) 10/28/2020 PVC's (premature ventricular contractions) 10/04/2020 Obstructive sleep apnea 07/31/2020 Breast mass, right 06/26/2020 Hyperlipidemia 06/11/2020 Osteoporosis 04/21/2019 Gastroesophageal reflux disease without esophagitis 07/29/2017 PLMD (periodic limb movement disorder) 05/26/2017 Snoring 05/26/2017 Fibromyalgia 10/25/2014 Controlled diabetes mellitus type II without complication ([facility] V24, [facility] V28) 10/11/2013 Polymyalgia rheumatica ([facility] V24) 12/09/2010 Anemia 04/30/2005 Unspecified sinusitis (chronic) 04/30/2005 Past Surgical History: Procedure Laterality Date BREAST BIOPSY Left PROCEDURE: BX BREAST; PERC NEEDLE CORE W/IMAG GUID; COMMENT: b9 COLONOSCOPY 2005 PROCEDURE: HISTORICAL COLONOSCOPY; COMMENT: negative screening exam. COLONOSCOPY 2016 PROCEDURE: HISTORICAL COLONOSCOPY; COMMENT: Negative screening examination. OTHER SURGICAL HISTORY PROCEDURE: MAMMOGRAM; COMMENT: 02/22/04 OTHER SURGICAL HISTORY PROCEDURE: PAP SMEAR (2 SLIDES); COMMENT: 03/2003 OTHER SURGICAL HISTORY PROCEDURE: PA LIG/TRNSXJ FLP TUBE ABDL/VAG APPR UNI/BI OTHER SURGICAL HISTORY PROCEDURE: HISTORICAL TOTAL HYSTERECTOMY W/O BSO UPPER GASTROINTESTINAL ENDOSCOPY 07/20/2018 PROCEDURE: PA UPPER GI ENDOSCOPY PERFORMED; COMMENT: Visually normal at [facility]; antral bx done to check for H. pylori----negative. SOCIAL HISTORY: Social History Tobacco Use Smoking status: Never Smokeless tobacco: Never Substance Use Topics Alcohol use: No FAMILY HISTORY: Family History Problem Relation Name Age of Onset Coronary artery disease Mother Arthritis Mother Coronary artery disease Father Arthritis Father Lung cancer Father Other cancer Son Blindness Neg Hx Cataracts Neg Hx Glaucoma Neg Hx Macular degeneration Neg Hx Strabismus Neg Hx Breast cancer Neg Hx Family Status Relation Name Status Mother at age 82 KIDNEY FAILURE SMOKER Father at age 72 LUNG CANCER Son (Not Specified) Neg Hx (Not Specified) Sister Alive No partnership data on file MEDICATIONS DISCONTINUED/REORDERED: There are no discontinued medications. ACTIVE MEDICATIONS: Outpatient Medications Marked as Taking for the 12/05/24 encounter (Office Visit) with HARSHAD Chaudhary Medication Sig Dispense Refill azelastine (ASTELIN) 137 mcg (0.1 %) nasal spray 2 Sprays by Each Nare route 2 times daily. Use in each nostril as directed blood-glucose meter kit Use to check blood sugar once a day capsaicin (ZOSTRIX) 0.075 % cream Apply to affected areas (feet) 4 times daily cyclobenzaprine (FLEXERIL) 5 mg tablet Take 5 mg by mouth 3 times daily as needed. glucose blood test strip Use to check blood sugar once a day lancets ([employer] DelStereomood Plus Lancet) 30 gauge USE DIRECTED ONCE DAILY 200 each 1 LORazepam (ATIVAN) 0.5 mg tablet Take 1 tablet (0.5 mg total) by mouth every 8 (eight) hours if needed. metFORMIN XR (GLUCOPHAGE-XR) 500 mg 24 hr tablet TAKE 2 TABLETS BY MOUTH DAILY (WITH BREAKFAST). AND TAKE 2 TABS IN THE EVENING 360 tablet 3 metroNIDAZOLE (METROGEL) 0.75 % gel Apply topically 2 (two) times a day. Apply to face in a thin layer twice daily after washing 45 g 0 rosuvastatin (CRESTOR) 10 mg tablet TAKE 1 TABLET BY MOUTH EVERY DAY 90 tablet 1 timolol (TIMOPTIC) 0.5 % ophthalmic solution ALLERGIES: Allergies Allergen Reactions Alendronic Acid Itching Nsaids (Non-Steroidal Anti-Inflammatory Drug) Flushing Other Flushing Nsaids Sulfa (Sulfonamide Antibiotics) Hives PHYSICAL EXAM: Visit Vitals BP 108/63 Temp 37.1 ??C (98.7 ??F) (Temporal) Resp 14 Ht 1.575 m (62 ) Wt 67.1 kg (148 lb) SpO2 99% BMI 27.07 kg/m?? OB Status Postmenopausal Smoking Status Never BSA 1.68 m?? General appearance: alert and oriented, in no acute distress Lungs: clear to auscultation bilaterally Heart: regular rate and rhythm, S1, S2 normal, no murmur, click, rub or gallop Extremities: extremities normal, warm and well-perfused; no cyanosis, clubbing, or edema Neurologic: Grossly normal LABS/IMAGING: Lab Results Component Value Date HGBA1C 6.8 (H) 12/01/2024 CHOL 132 12/01/2024 LDLCALC 43 12/01/2024 HDL 55 12/01/2024 TRIG 172 (H) 12/01/2024 CREATUR 101.0 12/01/2024 MICROALBUR 7.7 12/01/2024 MICROALBCREA 8 12/01/2024 Lab Results Component Value Date GLUCOSE 117 (H) 12/01/2024 IMPRESSION: 1. Controlled type 2 diabetes mellitus without complication, without long-term current use of insulin ([facility] V24, [facility] V28) 2. Anemia, unspecified type 3. Gastroesophageal reflux disease without esophagitis 4. Primary hypertension 5. Hyperlipidemia, unspecified hyperlipidemia type 6. Obstructive sleep apnea 7. PVC's (premature ventricular contractions) 8. Osteoporosis, unspecified osteoporosis type, unspecified pathological fracture presence 9. Polymyalgia rheumatica ([facility] V24) PLAN: 1. Overall she is doing really well. The sugars have been under good control we will continue present regimen follow-up in 6 months repeat labs at next visit. 2. Her blood pressure has been doing very well, she has been holding metoprolol when her blood pressure is on the lower side. I think it would be reasonable to cut the dose of this down to 25 mg a day or so, patient will follow-up with cardiology as well. 3. Hyperlipidemia, continue statin. 4. History of anemia will monitor blood counts. 5. AMARI stable. 6. History of osteoporosis encouraged calcium and vitamin D. 7. Does have a history of GERD would like to try something as needed will prescribe famotidine I have applied the code G2211 to this patient???s visit as the primary care provider dealing with (list the condition that is/are complex) leading to the extensive work up, and management associated with the medical care of this patient. This patient???s serious conditions and complex medical conditions also required several consultants needing management and coordination through my office. I have reviewed all information as it pertains to the management of this patient for final approval. Advised the patient to call me if any problems. Patient understands the plan. Patient is in agreement with the plan. documented in this encounter Plan of Treatment Upcoming Encounters Date Type Department Care Team (Late st Contact Info) Description 05/23/2025 2:00 PM EST Office Visit [facility] [address] [place] [address] Reddy Yi MD [address] [place] [address] [address] [place] [address] 06/13/2025 10:45 AM EST Office Visit Adult Medicine [facility] [address] [place] [address] Evaristo Hay PA [address] [place] [address] Scheduled Orders Name Type Priority Associated Diagnoses Orde r Schedule Lipid panel with reflex to direct LDL Lab Routine Controlled type 2 diabetes mellitus without complication, without long-term current use of insulin ([facility] V24, [facility] V28) Anemia, unspecified type Gastroesophageal reflux disease without esophagitis Primary hypertension Hyperlipidemia, unspecified hyperlipidemia type Obstructive sleep apnea PVC's (premature ventricular contractions) Osteoporosis, unspecified osteoporosis type, unspecified pathological fracture presence Polymyalgia rheumatica ([facility] V24) 1 Occurrences starting 12/05/2024 until 12/05/2025 Microalbumin creatinine urine ratio Lab Routine Controlled type 2 diabetes mellitus without complication, without long-term current use of insulin ([facility] V24, [facility] V28) Anemia, unspecified type Gastroesophageal reflux disease without esophagitis Primary hypertension Hyperlipidemia, unspecified hyperlipidemia type Obstructive sleep apnea PVC's (premature ventricular contractions) Osteoporosis, unspecified osteoporosis type, unspecified pathological fracture presence Polymyalgia rheumatica ([facility] V24) 1 Occurrences starting 12/05/2024 until 12/05/2025 Comprehensive metabolic panel Lab Routine Controlled type 2 diabetes mellitus without complication, without long-term current use of insulin ([facility] V24, [facility] V28) Anemia, unspecified type Gastroesophageal reflux disease without esophagitis Primary hypertension Hyperlipidemia, unspecified hyperlipidemia type Obstructive sleep apnea PVC's (premature ventricular contractions) Osteoporosis, unspecified osteoporosis type, unspecified pathological fracture presence Polymyalgia rheumatica ([facility] V24) 1 Occurrences starting 12/05/2024 until 12/05/2025 Hemoglobin A1c Lab Routine Controlled type 2 diabetes mellitus without complication, without long-term current use of insulin ([facility] V24, [facility] V28) Anemia, unspecified type Gastroesophageal reflux disease without esophagitis Primary hypertension Hyperlipidemia, unspecified hyperlipidemia type Obstructive sleep apnea PVC's (premature ventricular contractions) Osteoporosis, unspecified osteoporosis type, unspecified pathological fracture presence Polymyalgia rheumatica ([facility] V24) Expected: 03/07/2025, Expires: 12/05/2025 documented as of this encounter Visit Diagnoses Diagnosis Controlled type 2 diabetes mellitus without complication, without long-term current use of insulin ([facility] V24, [facility] V28)- Primary Anemia, unspecified type Gastroesophageal reflux disease without esophagitis Esophageal reflux Primary hypertension Unspecified essential hypertension Hyperlipidemia, unspecified hyperlipidemia type Obstructive sleep apnea Obstructive sleep apnea (adult) (pediatric) PVC's (premature ventricular contractions) Other premature beats Osteoporosis, unspecified osteoporosis type, unspecified pathological fracture presence Polymyalgia rheumatica ([facility] V24) Polymyalgia rheumatica documented in this encounter Additional Health Concerns Assessment Noted Time PHQ-9 Depression Total Score: 0 12/05/19 25 9:17 PM EDT documented as of this encounter Care Teams Counseling Case Manager Relationship Specialty Start Date End Date Evaristo Hay PA [address] [place] [address] PCP - General Internal Medicine 07/13/24 documented as of this encounter
--- OUTSIDE RECORDS SUMMARY | 2024-12-06 14:05 | XMS_ITS | Encounter Summary ---
Author Organization [facility] Address [address] [place] [address] Care Team Providers Care Food And Beverage Manager Name Role Phone Evaristo Hay Primary Care Provider [phone] Encounter Details Date Type Department Care Team (Late Contact Info) Description 06/01/[address] [facility] [address] [facility] [place] [phone] Aiden Katz MD [address] [facility] [address] [place] [phone] Pyuria Social History Tobacco Use Types Packs/Day [...] Department Care Team (Late Contact Info) Description 05/23/2025 2:00 PM EST Office Visit [facility] [address] [place] [address] Reddy Yi MD [address] [place] [address] [address] [place], [place] [id number] 06/13/2025 10:45 AM EST Office Visit Adult Medicine [facility] [address] [place] [address] Evaristo Hay PA [address] [place] [address] documented as of this encounter Procedures Procedure Name Priority Date/Time Associated Diagnosis Comments BACTERIAL IDENTIFICATION AND SUSCEPTIBILITY, AEROBIC Routine 05/31/2024 12:00 AM EST Pyuria documented in this encounter Results * (ABNORMAL) Bacterial identification and susceptibility, aerobic (05/31/2024 12:00 AM EST) Culture, Bacterial ID and Sensitivity Klebsiella pneumoniae ssp pneumoniae(A) ARTI 06/02/2024 8:57 AM EST [facility] Comment: This is an edited result. [...] MICROBIOLOGY - GENERAL ORDER YOLANDA Final Result [facility] ([facility] [address] [place] [address], documented in this encounter Visit Diagnoses Diagnosis Pyuria Other nonspecific finding on examination of urine documented in this encounter Care Teams Food And Beverage Manager Relationship Specialty Start Date End Date Evaristo Hay PA [address] [place] [address] PCP - General Internal Medicine 07/13/24 documented as of this encounter
--- OUTSIDE RECORDS SUMMARY | 2024-12-06 14:05 | XMS_ITS | Clinical Summary ---
Author Organization LL [address] [facility] Address [address] [place] [address] Phone Care Team Providers Care Collections Representative Name Role Phone Evaristo Hay Primary Care Provider [phone] Allergies Active Allergy Reactions Criticality Noted Date [...] each day. 135 tablet 3 5 Active famotidine (PEPCID) 20 mg tablet Take 1 tablet (20 mg total) by mouth 2 (two) times a day if needed (acid symptoms). 60 tablet 11 5 Active Active Problems Problem Noted Date [...] frequency. Obstructive sleep apnea 07/31/2020 Overview (06/12/2024): [facility] Polysomnogram Date 06/20/2021. Wt 155#; BMI 28. [...] Controlled diabetes mellitus type II without complication (CMS/[facility] V24, CMS/[facility] V28) 10/11/2013 Polymyalgia rheumatica (CMS/[facility] V24) 12/09/2010 Overview (06/12/2024): Onset September 2010. Dr. Gould Anemia 04/30/2005 Overview (06/12/2024): chronic---Give NO BLOOD(islam reasons) IMO Update Fall 2015 Unspecified sinusitis (chronic) 04/30/2005 Overview (06/12/2024): O update Resolved Problems Problem Noted Date Diagnosed Date Resolved Date Cardiomyopathy ([facility] V24, [facility] V28) 03/17/2024 09/20/2024 Overview (06/12/2024): Last Assessment [...] Encounters Date Type Department Care Team Description 12/05/2024 3:30 PM EDT Office Visit Adult [facility] [address] [place] [address] Evaristo Hay PA Controlled type 2 diabetes mellitus without complication, without long-term current use of insulin ([facility] V24, [facility] V28) (Primary Dx); Anemia, unspecified type; Gastroesophageal reflux disease without esophagitis; Primary hypertension; Hyperlipidemia, unspecified hyperlipidemia type; Obstructive sleep apnea; PVC's (premature ventricular contractions); Osteoporosis, unspecified osteoporosis type, unspecified pathological fracture presence; Polymyalgia rheumatica ([facility] V24) 10/13/2024 Telephone Adult Medicine [id number] [place] [phone] Ingris Saenz MA Rx request 09/20/2024 10:40 AM EST Office Visit [facility] [address] [place] [address] Alesha Garland NP Primary hypertension (Primary Dx); PVC's (premature ventricular contractions); Obstructive sleep apnea; Hyperlipidemia, unspecified hyperlipidemia type from Last 3 Months Immunizations Name Administration Dates Next Due Influenza trivalent, 0.5mL ( Fluad) 65yo and older 04/06/2024,03/17/2023,04/14/2022,03/27,03/07/2020,04/18/2019,04/02/2019 ,03/29/2018,03/23/2017 Influenza trivalent, 0.5mL, preservative free (Fluarix; FluLaval; Fluzone) ages 6mo and older (Afluria) 3 years and older 06/01/2016,04/04/2015,07/31/2014,08/04,04/16/2011,05/23/2008,05/12/2007 ,06/19/2006,05/29/2005 Influenza, Unspecified 03/27/2021 [employer] SARS-CoV-2 COVID-19, mRNA, LNP-S, preservative free 12/29/2021,09/13/2020 [...] SLIDES); COMMENT: 03/2003 OTHER SURGICAL HISTORY PROCEDURE: AK LIG/TRNSXJ FLP TUBE ABDL/VAG APPR UNI/BI OTHER SURGICAL HISTORY PROCEDURE: HISTORICAL TOTAL HYSTERECTOMY W/O BSO COLONOSCOPY 2005 PROCEDURE: HISTORICAL COLONOSCOPY; COMMENT: negative screening exam. COLONOSCOPY 2016 PROCEDURE: HISTORICAL COLONOSCOPY; COMMENT: Negative screening examination. UPPER GASTROINTESTINAL ENDOSCOPY 07/20/2018 PROCEDURE: AK UPPER GI ENDOSCOPY PERFORMED; COMMENT: Visually normal [...] unspecified DX:Anemia, u nspecified; COMMENT: chronic---Give NO BLOOD(islam reasons) Anxiety state, unspecified DX:An xiety state, [...] care for your loved ones. For example, child nurse or elderly care for an older adult? [...] Pressure 108/63 12/05/2024 3:04 PM EDT Pulse 74 09/20/2024 10:40 AM EST Temperature 37.1 ??C (98.7 ??F) 12/05/2024 3:04 PM ED T Respiratory Rate 14 12/05/2024 3:04 PM EDT Oxygen Saturation 99% 12/05/2024 3:04 PM EDT Inhaled Oxygen Concentration - - Weight 67.1 kg (148 lb) 12/05/2024 3:04 PM EDT Height 157.5 cm (5' 2 ) 12/05/2024 3:04 PM EDT Body Mass Index 27.07 12/05/2024 3:04 PM EDT Plan of Treatment Upcoming Encounters Date Type Department Care Team (Late st Contact Info) Description 05/23/2025 2:00 PM EST Office Visit [facility] [address] [place] [phone] Reddy Yi MD [address] [place] [address] Dr [address] [place] [address] 06/13/2025 10:45 AM EST Office Visit Adult Medicine [facility] [address] [place] [address] Evaristo Hay PA [address] [place] [address] Health Maintenance Due Date Last Done Comments Medicare Annual Wellness Visit 06/27/2022 COVID-19 Vaccine ( season) 2024 07/08/2023, 12/29/2021, 05/13/2021, Additional history exists Diabetes: Annual Foot Exam 04/06/2025 04/06/2024 Diabetes: Blood Sugar Control Test (HGBA1C) 06/03/2025 12/01/2024, 08/04/2024, 04/03/2024, Additional history exists Falls Risk Assessment 07/24/2025 07/24/2024, 024 Diabetes: Annual Retina Eye Exam 08/01/2025 08/01/2024, 06/29/2023 Social Influencers of Health Screening 08/07/2025 08/07/2024 Diabetes: Annual Urine Albumin-Creatinine Ratio (uACR) 12/01/2025 12/01/2024, 08/04/2024, 03/01/2024 Diabetes: Annual GFR (Glomerular Filtration Rate) 12/01/2025 12/01/2024, 08/25/2024, 08/04/2024, Additional history exists Hypertension/CHF/CAD Annual BMP Blood Test 12/01/2025 12/01/2024, 08/25/2024, 08/04/2024, Additional history exists Depression Screening 12/04/2025 12/04/2024, 04/06/20 24 DTaP,Tdap,and Td Vaccines (4 - Td or Tdap) 06/01/2026 06/01/2016, 04/03/2005, 04/03/2005 Colorectal Cancer Screening: Colonoscopy 07/28/2026 07/28/2016 Breast Cancer Screening 08/01/2026 08/01/19, 07/22/2023, 08/06/2022, Additional history exists Cholesterol Screening (Lipid Panel) 12/01/2029 12/01/2024, 08/04/2024, 04/03/2024, Additional history exists Osteoporosis Screening (Bone [...] this topic Medical Devices Implanted Type Area Metal Drilling Machine Operator Device Identifier Shelf Expiration Date Model / Serial / Lot Stent Uret Stretch Vl 7fr 22-3 - Sn/A - [id number] Implanted:Qty: 1 on 07/24/2024 by Aiden Katz MD at [facility] Stents Left: Ureter [employer]GYNECOLG Y 12/07/2026 [id number] / N/A / [id number] Procedures Procedure Name Priority Date/Time Associated Diagnosis Comments LIPID PANEL WITH REFLEX TO DIRECT LDL Routine 12/01/2024 10:31 AM EDT Cardiomyopathy, unspecified type (CMS/HCC V24, CMS/HCC V28) Controlled type 2 diabetes mellitus without complication, without long-term current use of insulin (CMS/HCC V24, CMS/HCC V28) Primary hypertension MICROALBUMIN CREATININE URINE RATIO Routine 12/01/2024 10:31 AM EDT Cardiomyopathy, unspecified type (CMS/HCC V24, CMS/HCC V28) Controlled type 2 diabetes mellitus without complication, without long-term current use of insulin (CMS/HCC V24, CMS/HCC V28) Primary hypertension COMPREHENSIVE METABOLIC PANEL Routine 12/01/2024 10:31 AM EDT Cardiomyopathy, unspecified type (CMS/HCC V24, CMS/HCC V28) Controlled type 2 diabetes mellitus without complication, without long-term current use of insulin (CMS/HCC V24, CMS/HCC V28) Primary hypertension HEMOGLOBIN A1C Routine 12/01/2024 10:31 AM EDT Cardiomyopathy, unspecified type (CMS/HCC V24, CMS/HCC V28) Controlled type 2 diabetes mellitus without complication, without long-term current use of insulin (CMS/HCC V24, CMS/HCC V28) Primary hypertension MAMMO DIGITAL SCREENING W JOHN BILAT Routine 08/01/2024 1:49 PM EST Encounter for screening mammogram for breast cancer DEPRESSION SCREENING Routine 04/06/2024 FALLS RISK ASSESSMENT Routine 04/06/2024 DIABETES FOOT EXAM Routine 04/06/2024 DIABETES EYE EXAM Routine 06/29/2023 DXA BONE DENSITY STUDY 1+ SITS AXIAL SKEL Routine 04/15/2023 11:06 AM EDT Encounter for screening for depression Type 2 diabetes mellitus without complications (CMS/HCC V24, CMS/HCC V28) Essential (primary) hypertension Mixed hyperlipidemia Obstructive sleep apnea (adult) (pediatric) Age-related osteoporosis without current pathological fracture Gastro-esophageal reflux disease without esophagitis COLONOSCOPY Routine 07/28/2016 HEPATITIS C SCREENING Routine 10/09/2013 from Last 3 Months or Most Recently Relevant to Health Maintenance Results * (ABNORMAL) Lipid panel with reflex to direct LDL (12/01/2024 10:31 AM EDT) Cholesterol 132 0 - 200 mg/dL LAB CHEMISTRY METHOD 12/01/2024 1:08 PM EDT [facility] Triglycerides 172(H) 0 - 150 mg/dL LAB CHEMISTRY METHOD 12/01/2024 1:08 PM EDT [facility] HDL 55 >=40 mg/dL LAB CHEMISTRY METHOD 12/01/2024 1:08 PM EDT [facility] LDL Calculated 43 0 - 100 mg/dL LAB CHEMISTRY METHOD 12/01/2024 1:08 PM EDT [facility] VLDL Cholesterol Jaden 34.4 mg/dL LAB CHEMISTRY METHOD 12/01/2024 1:08 PM EDT [facility] Non HDL Chol. (LDL+VLDL) 77 <145 mg/dL LAB CHEMISTRY METHOD 12/01/2024 1:08 PM EDT [facility] Chol/HDL Ratio 2.4 0.0 - 4.4 LAB CHEMISTRY METHOD 12/01/2024 1:08 PM EDT [facility] Blood Venous blood specimen / Unknown Venipuncture / Unknown 12/01/2024 10:31 AM EDT 12/01/2024 10:31 AM EDT us Evaristo PATRICIA LAB BLOOD ORDERABLES Sybil l Result [facility] [address] [place] [address], * Microalbumin creatinine urine ratio (12/01/2024 10:31 AM EDT) Creatinine, Urine 101.0 mg/dL LAB CHEMISTRY METHOD 12/01/2024 1:37 PM EDT [facility] Microalb, Ur 7.7 0.0 - 29.0 mg/L LAB CHEMISTRY METHOD 12/01/2024 1:37 PM EDT [facility] Microalb/Creat Ratio 8 <30 mg/g creat LAB CHEMISTRY METHOD 12/01/2024 1:37 PM EDT [facility] Urine Urine specimen obtained by clean catch procedure / Unknown Non-blood Collection / Unknown 12/01/2024 10:31 AM EDT 12/01/2024 10:31 AM EDT Evaristo PATRICIA LAB URINE ORDERABLES Sybil l Result Performing Organization Address [facility]/ZIP Co de Phone Number [facility] [address] [place] [address], [place] [phone] * (ABNORMAL) Hemoglobin A1c (12/01/2024 10:31 AM EDT) Hemoglobin A1C 6.8(H) <6.5 % LAB CHEMISTRY METHOD 12/01/2024 1:32 PM EDT [facility] Mean Bld Glu Estim. 148 mg/dL LAB CHEMISTRY METHOD 12/01/2024 1:32 PM EDT [facility] Blood Venous blood specimen / Unknown Venipuncture / Unknown 12/01/2024 10:31 AM EDT 12/01/2024 10:31 AM EDT Evaristo PATRICIA LAB BLOOD ORDERABLES Sybil l Result [facility] [address] [place] [address], [place] [phone] * (ABNORMAL) Comprehensive metabolic panel (12/01/2024 10:31 AM EDT) Sodium 138 133 - 145 mmol/L LAB CHE[facility]STR[facility] Potassium 4.3 3.5 - 5.5 mmol/L LAB CHEMISTRY METHOD 12/01/2024 1:08 PM [facility] Chloride 104 96 - 110 mmol/L LAB CHEMISTRY METHOD 12/01/2024 1:08 PM [facility] CO2 26 21 - 32 mmol/L LAB CHEMISTRY METHOD 12/01/2024 1:08 PM [facility] Anion Gap 8 3 - 11 LAB CHEMISTRY METHOD 12/01/2024 1:08 PM [facility] Glucose 117(H) 70 - 100 mg/dL LAB CHEMISTRY METHOD 12/01/2024 1:08 PM [facility] BUN 16 5 - 25 mg/dL LAB CHEMISTRY METHOD 12/01/2024 1:08 PM [facility] Creatinine 0.73 0.50 - 1.10 mg/dL LAB CHEMISTRY METHOD 12/01/2024 1:08 PM [facility] eGFR 88 >=60 mL/min/1. 73m2 LAB CHEMISTRY METHOD 12/01/2024 1:08 PM [facility] Comment:Calculation based on the Chronic Kidney Disease Epidemiology Collaboration (CKD-EPI) equation refit without adjustment for race. BUN/Creatinine Ratio 21.9 LAB CHEMISTRY METHOD 12/01/2024 1:08 PM [facility] Calcium 10.1 8.5 - 10.5 mg/dL LAB CHEMISTRY METHOD 12/01/2024 1:08 PM [facility] AST (SGOT) 14 10 - 42 unit/L LAB CHEMISTRY METHOD 12/01/2024 1:08 PM [facility] ALT (SGPT) 21 10 - 60 unit/L LAB CHEMISTRY METHOD 12/01/2024 1:08 PM [facility] Alkaline Phosphatase 60 42 - 121 unit/L LAB CHEMISTRY METHOD 12/01/2024 1:08 PM [facility] Total Protein 7.0 6.0 - 8.0 g/dL LAB CHEMISTRY METHOD 12/01/2024 1:08 PM EDT [facility] Albumin 3.9 3.2 - 5.0 g/dL LAB CHEMISTRY METHOD 12/01/2024 1:08 PM EDT [facility] Total Bilirubin 0.3 0.0 - 1.4 mg/dL LAB CHEMISTRY METHOD 12/01/2024 1:08 PM EDT [facility] Blood Venous blood specimen / Unknown Venipuncture / Unknown 12/01/2024 10:31 AM EDT 12/01/2024 10:31 AM EDT Evaristo PATRICIA LAB BLOOD ORDERABLES Sybil l Result [facility] [address] [place] [address], [place] [phone] * MG Mammo Digital Screening w John [...] is recommended in 1 year. Mammo Location: [facility], [address] [place] [address], [id number], . -------- FINAL REPORT -------- Dictated By: Sarah Buchanan Dictated Date: 08/02/2024 08:44 ET Assigned Physician: Sarah Buchanan Reviewed and Electronically Signed By: Sarah Buchanan Signed Date: 08/02/2024 08:59 ET Workstation ID: [id number] Transcribed By: Self Edit Transcribed Date: 08/02/2024 [...] is recommended in 1 year. Mammo Location: [facility], [address] [place] [address], [id number], . -------- FINAL REPORT -------- Dictated By: Sarah Buchanan Dictated Date: 08/02/2024 08:44 ET Assigned Physician: Sarah Buchanan Reviewed and Electronically Signed By: Sarah Buchanan Signed Date: 08/02/2024 08:59 ET Workstation ID: [id number] Transcribed By: Self Edit Transcribed Date: 08/02/2024 08:47 ET Evaristo PATRICIA IMG BI PROCEDURES Final R esult * Falls Risk Assessment (04/06/2024) [facility] Falls Risk Assessment abstracted Historical Provider MD HEALTH MAINTENANCE Final Result * Depression Screening (04/06/2024) [facility] Depression Screening abstracted Result [facility] Provider MD HEALTH MAINTENANCE Final Result * Diabetes Foot Exam (04/06/2024) [facility] Diabetes: Annual Foot Exam abstracted Result [facility] Provider MD HEALTH MAINTENANCE Final Result * Diabetes Eye Exam (06/29/2023) [facility] Diabetes: Annual Retina Eye Exam abstracted Result [facility] Provider MD HEALTH MAINTENANCE Final Result [...] on the World Health Organization criteria, Marycarmen Escobar should be classified as having osteopenia. This patient has a 22% risk of major osteoporotic fracture and a 7.9% risk of hip fracture over the next 10 years. (World Health Organization Fracture Risk Assessment) [facility] Department of Internal Medicine recommends using [...] on the World Health Organization criteria, Marycarmen Escobar shouldbe classified as having osteopenia. This patient has a 22% risk of majorosteoporotic fracture and a 7.9% risk of hip fracture over the next 10years. (World Health Organization Fracture Risk Assessment) [facility] Department of Internal Medicine recommendsusing National [...] of fracture risk by FRAX. Evaristo PATRICIA IMRosio DXA PROCEDURES Final Result * Colonoscopy (07/28/2016) [facility] Colonoscopy normal abstracted Anatomical Region Laterality Modality Other Historical Provider HEALTH MAINTENANCE Final Result * Hepatitis C Screening (10/09/2013) [facility] Hepatitis C Screening abstracted Historical Provider HEALTH MAINTENANCE Final Result from Last 3 Months or Most Recently Relevant to Health Maintenance Insurance MEDICARE [place]ICAID [place] [facility] Care Teams Collections Representative Relationship Specialty Start Date End Date Evaristo Hay PA [address] [place] [address] PCP - General Internal Medicine 07/13/24
--- OUTSIDE RECORDS SUMMARY | 2024-12-06 14:05 | XMS_ITS | Data Portability ---
Author Organization [place] - [facility], Allergy Address [address] [address] Assessment Encounter Date Assessment Date Assessment LastModified [...] hot water and dried in a hot vacuum drum drier operator. Recommend frequent vacuuming and damp-mopping, preferably by another member of the household or while wearing a mask if patient must do this themself. Consider an air purifier with HEPA filter, which should be regularly changed according to labeling specialist schedule. Vents and ducts in the home [...] Imaging CT, sinuses, w/o contrast 2023 024 [place] [facility], [address] [place] [address], [address], 02/18/2024 10:54:00 Medication Orders ipratropi um bromide 21 mcg (0.03 %) nasal spray 2024 025 [facility] #1972, [address] [place] [address], [address], 08/21/2024 14:35:30 azelastin e 137 mcg (0.1 %) nasal spray 2023 024 [facility] #1972, [address] [place] [address], [address], 02/18/2024 09:40:51 Patient TargetsNo targets recorded. Patient InstructionsNo instructions recorded. Reason for Referral None Reported. Results Created Date Observation Date Name Description Value Unit Range Abnormal Flag Note LastModifiedBy Organization Detail LastModifiedTime 02/18/20 CT, sinus es, w/o contr ast No observ ation record ed. [email or web address] [facility] [address], [address], 02/18/2024 09:43:53 02/24/2002/18/2024 CT, sinus es, w/o contr ast No observ ation record ed. [email or web address] [facility] [address], [address], 02/24/2024 10:03:38 03/07/20 24 08/16/2019 imagi ng/di [...] Organization Details Recorded Time Deviated nasal septum 516177389 Active 2020 Deviated nasal septum; Note: Date Diagnosed : 01/24/2021 10:12 AM (J34.2) Not Available [facility] 4 02:35:57 Otalgia of left ear 8043028420 Active 2017 Otalgia, left ear; Note: Date Diagnosed : 12/15/2017 2:46 PM (H92.02) Not Available [facility] 4 02:35:59 Pain of left temporoma ndibular joint 34947223482 656896 Active 2017 Arthralgi a of left temporoma ndibular joint; Note: Date Diagnosed : 12/15/2017 2:46 PM (M26.622) Not Available [facility] 4 02:35:49 Obstructi ve sleep apnea syndrome 71503762 Active 2020 Obstructi ve sleep apnea (adult) (pediatri c); Note: Date Diagnosed : 01/24/2021 10:12 AM (G47.33) Not Available [facility] 4 02:36:00 Allergic rhinitis 37214910 Active 2020 Other allergic rhinitis; Note: Date Diagnosed : 01/24/2021 10:11 AM (J30.89) Allergi c rhinitis, unspecifi ed; Note: Date Diagnosed : 11/06/2020 1:49 PM (J30.9) ; Start Date : Not Available [facility] 4 02:35:54 Chronic rhinitis 07985415 Active 2023 CRISTÓBAL MAGANA PA-C [address] [place] [address],[facility] [address], [place], [address] , [place] - [facility] [place] 4 09:16:38 Atypical facial pain 29508184 Active 2023 CRISTÓBAL MAGANA PA-C 100 [facility],[place] [address], [place], [place], [address] , [place] - [facility] [place] 4 09:43:08 Pain in face 39421131 Active 2023 CRISTÓBAL MAGANA PA-C 100 [facility],[place] [address], [place], [place], [address] , [place] - [facility] [place] 4 09:43:18 Anterior rhinorrhe a 954652902 Active 2024 CRISTÓBAL MAGANA PA-C 100 [facility],[place] [address], [place], [place], [address] , [place] - [facility] [place] 5 14:33:59 Problem Notes None recorded. Procedures Surgical History None recorded. Imaging Results Imaging Date Name Status LastModified by [facility] Details LastModified Time 02/18/2024 CT, sinuses, w/o contrast completed [email or web address] [facility] [address] [place], [address], 02/18/2024 09:43:53 02/18/2024 CT, sinuses, w/o contrast [email or web address] [address] [address], [place], [address], 02/24/2024 10:03:38 08/16/2019 imaging/diagn ostic result completed Information not available 03/07/2024 14:48:51 06/30/2020 imaging/diagn ostic result completed Information not available 03/07/2024 14:49:10 Procedure Notes None recorded. Medical Equipment None Reported. Allergies Allergen ID Allergen Name Allergen Category Reaction Reaction Severity Criticality Documentation Date Start Date Code Code System Note Provider Name and Address Organization Details Recorded Time 990705 Substance with sulfonami de structure and antibacte rial mechanism of action (substanc e) medicatio n other Not available Not available 11/30/2023 48114 8003 SNOMED React ion: unkno wn, unspe cifie d;; Not Available [facility] 01:24:22 Medications Name Sig Start Date [...] mg tablet 02/17 completed Medicati on ID: [id number] B rand Name: atorvast atin Sen d [...] mg tablet 02/17 completed Medicati on ID: 379157 B rand Name: atenolol Send Method: E-Prescr [...] mg) tablet 02/17 completed Medicati on ID: 737656 B rand Name: digoxin Send Method: E-Prescr [...] mg tablet 02/17 completed Medicati on ID: [id number] B rand Name: sertrali ne Send Method: E-Prescr ibed Sub s Allowed: subs OK Medic ationGen ericName : sertrali ne Not Available Not Available Not Available metronida zole 0.75 % topical gel 02/17 completed Medicati on ID: [id number] B rand Name: metronid azole Se nd [...] mg tablet 2020 active Medicati on ID: 182478 B rand Name: loratadi ne Send Method: [...] Updated DateTime 02/18/2024 157.48 cm 27.8 kg/m2 54042.04 g Vangie Michael [place] - [facility] 02/18/2024 09:12:09 Date Recorded Body height Body mass index (BMI) Body weight Provider Name and Address Organization Details Last Updated DateTime 08/21/2024 157.48 cm 25.6 kg/m2 94979.93 rolf Michael [place] - [facility] 08/21/2024 14:28:06 Social History None recorded. Functional Status None recorded. Mental Status None recorded. Family History Nothing Reported. Medical History No medical history recorded. Gynecological HistoryNo gynecological history recorded. Obstetrics History GPAL:G 0 P 0 0 0 0 Past Encounters Encounter ID Performer Location Encounter Start Date Encounter Closed Date Diagnosis/Indication Diagnosis SNOMED-CT Code Diagnosis ICD10 Code Diagnosis Note [id number] CRISTÓBAL MAGANA PA-C [facility] [address] [address] 02/18/2024 08:58:15 02/18/2024 09:40:13 Chronic rhinitis 30483136 J31.0 Pain in face 18013194 R5 1.9 [id number] CRISTÓBAL MAGANA PA-C [facility] 100 [place] [address] 08/21/2024 14:08:42 08/21/2024 14:55:22 Allergic rhinitis 64012585 J30.89 J30.9 Deviated nasal septum 12 6439089 J34.2 Anterior rhinorrhea 2772 89600 J34.89 Health Concerns Section Related Observation LastModified by Organization Detai ls LastModified Time None Recorded Concern Status LastModified by Organization Details LastModified Time None Recorded Advance Directives Directive None Recorded Payers Insurance Date Sequence Insurance Name Policy Number Policy Lynn Covered Member ID Lynn Member ID Guarantor Name 08/19/2024 1 [place] [employer] Marycarmen L Gillespie [id number] Marycarmen L Gillespie 09/29/2024 3 [place] [id number] Marycarmen L Gillespie [id number] Marycarmen L Gillespie 09/29/2024 2 [employer] - SENIOR SERVICES PLAN F (MEDICARE SUPPLEMENT) [id number] Marycarmen L Gillespie [id number] Marycarmen L Gillespie Notes Date Note Type [...] on the septum. MELANIE RODRIGUEZ MD [address] [address], [place], [address], [facility] - [facility] 02/18/2024 17:28:02 08/21/2024 text/html 74 year old [...] thickening and sinonasal polyps. MELANIE RODRIGUEZ MD [address] [place] [address], [place], [address], [facility] - [facility] 08/21/2024 17:03:37 OBGyn Episode No OBEpisode recorded.
--- OUTSIDE RECORDS SUMMARY | 2024-12-06 14:05 | XMS_ITS | Data Portability ---
Author Organization HARSHAD [facility] Address [address] [place] [address] Care Team Providers Care Materials Engineer Name Role Phone IRON MULLIGAN Primary Care Provider Assessment No assessment recorded. Plan of Treatment Reminders Order Date Submit Date Provider Last Modified By Organization Details Last Modified Time Details Appointments None recorded. Lab None recorded. Referral None recorded. Procedures None recorded. Surgeries None recorded. Imaging None recorded. Medication Orders doxycycline hyclate 100 mg capsule 2022 023 [facility]1972, [address] [place], [address], 3 13:32:14 montelukast 10 mg tablet 2022 023 [facility]1972, [address] [place], [address], 3 13:32:14 Patient TargetsNo targets recorded. Patient Instructions Encounter Date Encounter Id Patient Instructions Last Modified By Organization Details Last Modified Time 08/22/2022 [id number] Acute Sinusitis: Care Instructions [email or web address] Not available 08/22/2022 13:32:12 Based on your [...] watery post nasal drip. 6. Saline Nasal [place] is recommended. Since an antibiotic was prescribed [...] if you have any questions or concerns. [email or web address] Not available 08/22/2022 13:31:44 Reason for Referral None Reported. Problems Name Problem SNOMED Code Status Onset Date Resolution Date Notes Provider Name and Address Organization Details Recorded Time Hypertensive disorder 11708166 Active 2022 Bev Tu[place] null, [place] - [facility] 3 13:04:19 Diabetes mellitus 63881004 Active 2022 Bev Tu[place]ne null, [place] - [facility] 3 13:04:27 Osteoporosis 58715580 Active 2022 Bev Iona null, PA - [facility] 3 13:04:34 Hyperlipidemia 06368410 Active 2022 Bev Tu[place] null, PA - [facility] 3 13:04:39 Anxiety 70500326 Active 2022 Bev Iona null, PA - [facility] 3 13:04:45 Spasm of back muscles 314574854 Active 2022 Bev Iona null, PA - [...] Name and Address Organization Details Recorded Time 022192 Substance with sulfonami de structure and antibacte rial mechanism of action (substanc e) medicatio n hives Not available low 08/22/2022 67497 8003 SNOMED Bev plascencia [facility] - [facility] [...] Last Updated DateTime 157.48 cm 27.4 kg/m2 88755.8 6 g 97 % 97 % 80 /min 20 /min 97.9 [degF] 105 mm[Hg] 74 mm[Hg] Bev Monson [facility] 13:07:35 Social History Question Answer Notes LastModified by [employer] Details LastModified Time Tobacco Smoking Status Never Smoker Bev plascencia [facility] 08/22/2022 13:05:08 Have You Had Direct Contact, Or Contact During Intimacy, With Monkeypox Rash, Scabs, Or Body Fluids From A Person With Monkeypox? No Information not available 08/22/2022 Have You Recently Traveled Abroad? No Information not available 08/22/2022 Sex: Unknown Functional Status Question Answer Note LastModified by [employer] Details LastModified Time Do you use any [...] 08/22/2022 13:02:55 zoster recombinant 0 completed Bev Tuol[place]ne null, PA - [facility] 08/22/2022 13:02:55 Influenza, high-dose, quadrivalent, PF 1 completed Bev Tuolumne null, PA - [facility] 08/22/2022 13:02:55 COVID-19, mRNA, LNP-S, PF, 30 mcg/0.3 mL dose 1 completed Bev Iona null, PA - [facility] 08/22/2022 13:02:55 COVID-19, mRNA, LNP-S, PF, 30 mcg/0.3 mL dose 1 completed Bev Tuolumne null, PA - [facility] 08/22/2022 13:02:55 COVID-19, mRNA, LNP-S, PF, 30 mcg/0.3 mL dose 1 completed Bev Tuolumne null, PA - [facility] 08/22/2022 13:02:55 COVID-19, mRNA, LNP-S, PF, 30 mcg/0.3 mL dose, ming-sucrose 2 completed Bev Iona null, PA - [facility] 08/22/2022 13:02:55 pneumococcal polysaccharide PPV23 4 completed Bev Tuolumne null, PA - [facility] 08/22/2022 13:02:55 Td(adult) unspecified formulation 5 completed Bev Iona null, PA - [facility] 08/22/2022 13:02:55 Tdap 6 completed Bev Iona null, PA - [facility] 08/22/2022 13:02:55 Pneumococcal conjugate PCV 13 8 completed Bev Iona null, PA - [facility] 08/22/2022 13:02:55 zoster live 3 completed Bev Tuolumne null, PA - [facility] 08/22/2022 13:02:55 Influenza, high-dose, trivalent, PF 0 completed Bev Tuolumne null, PA - [facility] 08/22/2022 13:02:55 Influenza, high-dose, trivalent, PF 7 completed Bve Tuolumne null, PA - [facility] 08/22/2022 13:02:55 Influenza, high-dose, trivalent, PF 8 completed Bev Iona null, PA - [facility] 08/22/2022 13:02:55 Influenza, high-dose, trivalent, PF 9 completed Bev Iona null, PA - [facility] 08/22/2022 13:02:55 Influenza, high-dose, trivalent, PF 2 completed Bev Tuolumne null, PA - [facility] 08/22/2022 13:02:55 Influenza, high-dose, trivalent, PF 9 completed Bev Iona null, PA - [facility] 08/22/2022 13:02:55 Influenza, split virus, trivalent, preservative 5 completed Bev Iona null, PA - [facility] 08/22/2022 13:02:55 Influenza, split virus, trivalent, preservative 5 completed Bev Tu[place] null, PA - [facility] 08/22/2022 13:02:55 [...] split virus, trivalent, preservative 6 completed Bev Tuol[place] null, PA - [facility] 08/22/2022 13:02:55 Influenza, split virus, trivalent, preservative 6 completed Bev Iona null, PA - [facility] 08/22/2022 13:02:55 Influenza, split virus, trivalent, PF 3 completed Bev Tuolumne null, PA - [facility] 08/22/2022 13:02:55 Past Encounters Encounter ID Performer Location Encounter Start Date Encounter Closed Date Diagnosis/Indication Diagnosis SNOMED-CT Code Diagnosis ICD10 Code Diagnosis Note [id number] [facility] [address] [place] [address] 09/16/2021 14:08:53 09/16/2021 17:02:30 [id number] [address] [facility] [address] [place] [address] 09/07/2020 12:07:58 09/07/2020 13:07:48 [id number] HARSHAD MEJIAS [facility] [place] [address] 08/22/2022 10:54:33 08/22/2022 13:32:54 Acute sinusitis 91166862 J01.90 Continue your Saline Nasal [place] and Marie Use Humidifier in your home. Stay Warm. Health Concerns Section Related Observation LastModified by Organization Detai ls LastModified Time None Recorded Concern Status LastModified by Organization Details LastModified Time None Recorded Advance Directives Directive None Recorded Payers Insurance Date Sequence Insurance Name Policy Number Policy Lynn Covered Member ID Lynn Member ID Guarantor Name 08/22/2022 1 [place] [employer] Savings Program Marycarmen Gillespie [id number] 2 Marycarmen Gillespie 08/22/2022 2 [facility] [id number] Marycarmen Gillespie [id number] Marycarmen Gillespie Notes Date Note Type Note [...] HARSHAD MEJIAS [address] [place], [address], [place] - [facility] 08/22/2022 13:35:55 OBGyn Episode No OBEpisode recorded.
[2024-12-06 18:35] LABS: C Reactive Protein 0.25 mg/dL (< or = 0.50)
== END 2024-12-06 13:33 | disposition home or self-care (01) ==
LOC: HO.HKASLDS 13:32
PROVIDERS: Visit Provider Internal Medicine Rheumatology
DX: M35.3 Polymyalgia rheumatica (principal); Z79.899 Other long term (current) drug therapy
CPT/HCPCS: 36415; 86140

== ENCOUNTER 2025-02-28 10:19 | Outpatient (AMB) | payer MEDICARE, OTHER, MEDICAID, SELFPAY ==
[2025-02-28 10:23] VITALS: BP 90/76; PULSE 70; O2SAT 99; BMI 26.4
--- NOTE | 2025-02-28 10:23 | MHC.OFFVIS ---
Vital Signs 02/28/25 10:23 Height 5 ft 2 in Weight 144 lb 9.972 oz BMI 26.4 BP 90/76 Blood Pressure Location Rt brachial Position Sitting Pulse 70 Pulse Source Pulse Oximeter Pulse Oximetry (%) 99 Oxygen Delivery Method Room Air Intake Visit Reasons: 3 months Intake Note: Patient presents for fibromyalgia and osteoarthritis. Manager Architectural Required: No Accompanied by: Grand Child Allergies fluticasone (From Flonase) Allergy (Mild, Verified 02/28/25 10:23) Blister Sulfa (Sulfonamide Antibiotics) Allergy (Mild, Verified 02/28/25 10:23) Hives HPI HPI 3 months: Details: PMR is under control. No headaches, jaw pain, scalp pain. She has difficulty seeing close or when doing things. She had an eye exam and was given a new rx but she continues to use her old glasses. She is experiencing gel phenomenon. No recent infections. [facility] Medical History Sciatica Arthritis Allergies Polymyalgia rheumatica Osteoarthritis Surgical History H/O ureteroscopy H/O: hysterectomy Social History Patient Tobacco Use Status: Never used Tobacco Physical Exam Vital Signs: Last Vital Signs Pulse 70 02/28/25 10:23 BP 90/76 02/28/25 10:23 Pulse Ox 99 02/28/25 10:23 Oxygen Delivery Method Room Air 02/28/25 10:23 BMI result Body Mass Index 26.4 Const Other: General: Comfortable Skin: No lesions seen MSK: Normal range of motion of upper extremities and lower extremities. No tenderness of temporal region. No synovitis. Pulses: Palpable bilateral temporal pulses +1. +2 bilateral radial pulses. Assessment & Plan Assessment & Plan (1) Polymyalgia rheumatica: Comment: In remission. Recent labs 11/2024 reviewed with patient, which revealed normal inflammatory markers. Rheumatology history: PMR treated with prednisone for a year. 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 Code(s): M35.3 - Polymyalgia rheumatica Category: Medical Plan: I will check inflammatory markers Return to clinic in 6 months or sooner if needed (2) Muscle cramp: Comment: Resolved. Labs from November 2024 reveal normal electrolytes and muscle enzymes. Code(s): R25.2 - Cramp and spasm Category: Medical Plan: Monitor clinically Orders: Orders Erythrocyte Sedimentation Rate Today M35.3 - Polymyalgia rheumatica C Reactive Protein Today M35.3 - Polymyalgia rheumatica Coding Level of Care Code Est Pt Level 4 (03767) Complex EM visit Add On G2211 Diagnoses Polymyalgia rheumatica M35.3 Muscle cramp R25.2
--- OUTSIDE RECORDS SUMMARY | 2025-02-28 11:02 | XMS_ITS | Encounter Summary ---
Author Organization [facility] Address [address] [place] [address] Care Team Providers Care Offensive Coordinator Name Role Phone Evaristo Hay Primary Care Provider [phone] Encounter Details Date Type Department Care Team (Late Contact Info) Description 06/01/2024 Lab Requisition [facility] - Main Lab [address] [facility] [place] [phone] Aiden Katz MD [address] [facility] [address] [place] [phone] Pyuria Social History Tobacco Use Types Packs/Day [...] Description 05/23/2025 2:00 PM EST Office Visit [facility] Cardiology [facility] [address] [place] [address] Reddy Yi MD [address] [place] [address] Dr [address] [place], [place] [id number] 06/13/2025 10:45 AM EST Office Visit Adult Medicine [facility] [address] [place] [address] Evaristo Hay PA [address] [place] [address] documented as of this encounter Procedures Procedure Name Priority Date/Time Associated Diagnosis Comments BACTERIAL IDENTIFICATION AND SUSCEPTIBILITY, AEROBIC Routine 05/31/2024 12:00 AM EST Pyuria documented in this encounter Results * (ABNORMAL) Bacterial identification and susceptibility, aerobic (05/31/2024 12:00 AM EST) Culture, Bacterial ID and Sensitivity Klebsiella pneumoniae ssp pneumoniae(A) ARTI 06/02/2024 8:57 AM EST [facility] Comment: This is an edited [...] MICROBIOLOGY - GENERAL ORDER YOLANDA Final Result [facility] HOSPITAL LAB [address] [place] [address], documented in this encounter Visit Diagnoses Diagnosis Pyuria Other nonspecific finding on examination of urine documented in this encounter Care Teams Offensive Coordinator Relationship Specialty Start Date End Date Evaristo Hay PA [address] [place] [address] PCP - General Internal Medicine 07/13/24 documented as of this encounter
--- OUTSIDE RECORDS SUMMARY | 2025-02-28 11:02 | XMS_ITS ---
Author Name [facility] Unknown Care Team Organization Name Specialty Phone Email Start Date End Da te [facility] Evaristo Hay Primary Care 05/26/2022
== END 2025-02-28 11:00 | disposition home or self-care (01) ==
LOC: HO.RHES 10:19
PROVIDERS: PCP Internal Medicine; Visit Provider Internal Medicine Rheumatology
DX: M35.3 Polymyalgia rheumatica (principal); R25.2 Cramp and spasm
CPT/HCPCS: 99214; G2211

== ENCOUNTER 2025-02-28 10:19 | Outpatient (REF) | payer MEDICARE, OTHER, MEDICAID, SELFPAY ==
[2025-02-28 13:31] LABS: MANUAL DIFF FLAG NO
[2025-02-28 13:43] LABS: Hematocrit 37.2 % (37.0-47.0); Hemoglobin 11.7 g/dl (12.0-16.0); Imm Gran Abs Auto 0.02 X10*3/uL (0.00-0.03); Imm Gran Pct Auto 0.3 % (0.0-0.4); Lymphocytes Absolute Auto 1.9 X10*3/uL (1.2-4.9); Mean Corpuscular HGB Conc 31.5 g/dl (31.0-35.0); Mean Corpuscular Hemoglobin 25.6 pg (27.0-33.0); Mean Corpuscular Volume 81.4 fL (80.0-98.0); NRBC Abs Auto 0.000 X10*3/uL (0.0-0.012); NRBC Pct Auto 0.0 /100WBC (0.0-0.2); Platelet Count 230 X10*3/uL (160-400); Red Blood Count 4.57 X10*6/uL (4.20-5.50); White Blood Count 6.2 X10*3/uL (4.8-10.8)
[2025-02-28 14:26] LABS: Alanine Aminotransferase 16 U/L (0-31); Aspartate Amino Transferase 22 U/L (5-31); Estimated Glomerular Filt Rate > 60
== END 2025-02-28 10:20 | disposition home or self-care (01) ==
LOC: HO.HKASLDS 10:19
PROVIDERS: PCP Internal Medicine; Visit Provider Internal Medicine Rheumatology
DX: M35.3 Polymyalgia rheumatica (principal); M81.0 Age-related osteoporosis without current pathological fracture; E11.9 Type 2 diabetes mellitus without complications
CPT/HCPCS: 36415; 82565; 84450; 84460; 85025; 85652; 86140; 99212

== ENCOUNTER 2025-06-22 13:23 | Outpatient (REF) | payer MEDICARE, OTHER, MEDICAID, SELFPAY ==
--- OUTSIDE RECORDS SUMMARY | 2025-06-18 10:00 | XMS_ITS | Encounter Summary ---
Author Organization [facility] Address [address] [place] [address] Care Team Providers Care Riprap Placing Supervisor Name Role Phone Evaristo Hay Primary Care Provider [phone] Reason for Visit * Reason Comments 48 HOUR HOLTER * Cardiac Stress Testing (Routine) - Authorized Specialty Diagnoses / Procedures Referred By Contac t Referred To Contact Cardiology Diagnoses PVC's (premature ventricular contractions) Procedures Cardiac holter monitor (<= 48 hours) RI ECG EXTERNAL UP TO 48 HOURS RECORDING RI ECG EXTERNAL < 48 HOURS CONTINUOUS RECORDING/STORAGE R&I BY A PHYS/QHP RI EXTERNAL ECG UP TO 48 HRS INCL RECORDING SCANNING ANLYS W REPORT Reddy Yi MD [address] [place] [address] Dr Ramsay [address] [place] [phone] Phone: tel: fax: [facility] Referral ID Status Reason Start Date Expiration Date V isits Requested Visits Authorized [id number] Authorized 05/29/2025 05/29/2026 1 1 Encounter Details Date Type Department Care Team (Latest Contact Info) Description 06/18/2025 10:00 AM EST Ancillary Procedure [facility] [address] [place] [address] PVC's (premature ventricular contractions) Social History Tobacco Use Types Packs/Day Years Used Date Smoking Tobacco: Never Smokeless Tobacco: Never Alcohol Use Standard Drinks/Week Comments No 0 (1 standard drink = 0.6 oz pur e alcohol) Housing Instability Answer Date Recorde d Are you worried that in the next 2 months you may not have stable housing? No 06/13/2025 Food Access & Nutrition Answer Date Rec orded Do you have access to a vari ety of food including fruits and vegetables? Yes 06/13/2025 Health Literacy Answer Date Recorded How often do you need to hav e someone help you when you read instructions, pamphlets, or other written material from your doctor or pharmacy? Never 06/13/2025 Caregiver: How often do you need to have someone help you when you read instructions, pamphlets, or other written material from your doctor or pharmacy? Not on file 06/13/2025 Financial Risk Answer Date Recorded How hard is it for you to pa y for the very basics like food, housing, medical care, and air conditioning / heating? Not very hard 06/13/2025 Transportation Answer Date Recorded Has the lack of transportati on kept you from meetings, work, or from getting things needed for daily living? No Has the lack of transportati on kept you from medical appointments or from getting medications? No 06/13/2025 Social Isolation Answer Date Recorded How often do you feel lonely or isolated from th ose around you? Never 06/13/2025 Food Risk Answer Date Recorded Within the past 12 months we worried whether our food would run out before we got money to buy more. Never true 06/13/2025 Within the past 12 months th e food we bought just didn't last and we didn't have money to get more. Never true 06/13/2025 Dependent Care Answer Date Recorded Do you need help finding or paying for care for your loved ones. For example, child care team lead or elderly care for an older adult? Yes 06/13/2025 Education Answer Date Recorded Do you think completing more education or training, like finishing a GED, going to college, or learning a trade, would be helpful for you? No 06/13/2025 Employment and Income Answer Date Recor ded During the last four weeks, have you been actively looking for work? No 06/13/2025 Living Situation Answer Date Recorded What is your living situation? Unrecognized valu e 06/13/2025 Interpersonal Safety Answer Date Record ed Physical Abuse Unrecognized value 07/24/2024 Verbal Abuse Unrecognized value 07/24/2024 Comments No Sex and Gender Information Value Date Recorded Sex Assigned at Female 07/24/2024 7:14 AM EST Legal Sex Female 11:07 AM EST Gender Identity Female 07/24/2024 7:14 AM EST Sexual Orientation Straight 07/24/2024 7: 14 AM EST documented as of this encounter Plan of Treatment Upcoming Encounters Date Type Department Care Team (Late st Contact Info) Description 08/09/2025 9:00 AM EST Ancillary Procedure [facility] [address] [place] [address] 10/01/2025 10:45 AM EDT Office Visit Adult Medicine [address] [address] Evaristo Hay PA [address] [place] [phone] Pending Results Name Type Priority Associated Diagnoses Date /Time Cardiac holter monitor (<= 48 hours) Cardiac Services Routine PVC's (premature ventricular contractions) 06/18/2025 10:16 AM EST documented as of this encounter Visit Diagnoses Diagnosis PVC's (premature ventricular contractions) Other premature beats documented in this encounter Additional Health Concerns Assessment Noted Time PHQ-9 Depression Total Score: 0 06/13/20 25 11:04 AM EST documented as of this encounter Care Teams Riprap Placing Supervisor Relationship Specialty Start Date End Date Evaristo Hay PA [address] [place] [address] PCP - General Internal Medicine 07/13/24 documented as of this encounter
--- OUTSIDE RECORDS SUMMARY | 2025-06-22 17:32 | XMS_ITS | Encounter Summary ---
Author Organization [facility] Address [address] [place] [address] Care Team Providers Care Senior [employer] Laboratory Director Name Role Phone Evaristo Hay Primary Care Provider [phone] Encounter Details Date Type Department Care Team (Late st Contact Info) Description 03/23/2025 Lab Requisition [facility] - Main Lab [address] [facility] [place] [phone] Grzegorz Argueta MD [address] [facility] [address] [place] [phone] Frequency of micturition Social History Tobacco Use Types Packs/Day Years [...] is your living situation? Unrecognized valu e 08/07/2024 Interpersonal Safety Answer Date Record ed [...] Description 08/09/2025 9:00 AM EST Ancillary Procedure [facility] - [address] [place] [address] 10/01/2025 10:45 AM EDT Office Visit Adult Medicine [address] [place] [address] Evaristo Hay PA [address] [place] [address] documented as of this encounter Procedures Procedure Name Priority Date/Time Associated Diagnosis Comments CULTURE URINE Routine 03/23/2025 12:00 AM EDT Frequency of micturition documented in this encounter Results * Culture urine (03/23/2025 12:00 AM EDT) Culture, Urine No growth 03/24/2025 11:03 AM EDT [facility] Urine Urine specimen from urethra / Unknown Non-blood Collection / Unknown 03/23/2025 03/23/2025 1:46 PM EDT us Grzegorz Argueta MD LAB MICROBIOLOGY - GENERAL ORDER YOLANDA Final Result [facility] [address] [place] [address], documented in this encounter Visit Diagnoses Diagnosis Frequency of micturition Urinary frequency documented in this encounter Additional Health Concerns Assessment Noted Time PHQ-9 Depression Total Score: 0 12/05/19 25 9:17 PM EDT documented as of this encounter Care Teams Senior [employer] Laboratory Director Relationship Specialty Start Date End Date Evaristo Hay PA [address] [place] [id number] PCP - General Internal Medicine 07/13/24 documented as of this encounter
--- OUTSIDE RECORDS SUMMARY | 2025-06-22 17:32 | XMS_ITS | Data Portability ---
Author Organization [place] - [facility], All[facility] Address [address] [address] Assessment Encounter Date Assessment Date Assessment LastModified [...] and interpreted the images of today's CT. Not available 02/18/2024 13:01:46 08/21/2024 08/21/2024 Facial [...] hot water and dried in a hot spray drier. Recommend frequent vacuuming and damp-mopping, preferably by another member of the household or while wearing a mask if patient must do this themself. Consider an air purifier with HEPA filter, which should be regularly changed according to chain sales representative schedule. Vents and ducts in the home should be cleaned regularly as well. Follow up in 6 months, sooner with worsening or lack of improvement. Not available 08/21/2024 14:42:36 Plan of Treatment Reminders Order Date Submit Date Provider Last Modified By Organization Details Last Modified Time Details Appointments None recorded. Lab None recorded. Referral None recorded. Procedures None recorded. Surgeries None recorded. Imaging CT, sinuses, w/o contrast 2023 024 [place] [facility] [address], [address], 4 10:54:00 Medication Orders ipratropium bromide 21 mcg (0.03 %) nasal spray 2024 025 [facility] #1972, [address] [place] [address], [address], 5 14:35:30 azelastine 137 mcg (0.1 %) nasal spray 2023 024 [facility]1972, [address] [place] [address], [address], 4 09:40:51 Patient TargetsNo targets recorded. Patient InstructionsNo instructions recorded. Reason for Referral None Reported. Results Created Date Observation Date Name Description Value Unit Range Abnormal Flag Note LastModifiedBy Organization Detail LastModifiedTime 02/18/20 CT, sinus es, w/o contr ast No observ ation record ed. [email or web address] [facility] [address], [address], 02/18/2024 09:43:53 02/24/20 24 02/18/2024 CT, sinus es, w/o contr ast No observ ation record ed. [email or web address] [facility] [address], [address], 02/24/2024 10:03:38 03/07/20 24 08/16/2019 imagi ng/di agnos tic resul t No observ ation record ed. [email or web address] Not Available 14:48:51 03/07/20 24 06/30/2020 imagi ng/di agnos tic resul t No observ ation record ed. [email or web address] Not Available 14:49:10 Result Notes None recorded. Problems Name Problem SNOMED Code Status Onset Date Resolution Date Notes Provider Name and Address Organization Details Recorded Time Otalgia of left ear 8627787735 Active 2017 Otalgia, left ear; Note: Date Diagnosed : 12/15/2017 2:46 PM (H92.02) Not Available [facility] 4 02:35:59 Pain of left temporoma ndibular joint 74523828616 934410 Active 2017 Arthralgi a of left temporoma ndibular joint; Note: Date Diagnosed : 12/15/2017 2:46 PM (M26.622) Not Available [facility] 4 02:35:49 Deviated nasal septum 472943915 Active 2020 Deviated nasal septum; Note: Date Diagnosed : 01/24/2021 10:12 AM (J34.2) Not Available [facility] 4 02:35:57 Obstructi ve sleep apnea syndrome 64277882 Active 2020 Obstructi ve sleep apnea (adult) (pediatri c); Note: Date Diagnosed : 01/24/2021 10:12 AM (G47.33) Not Available [facility] 4 02:36:00 Allergic rhinitis 93497510 Active 2020 Other allergic rhinitis; Note: Date Diagnosed : 01/24/2021 10:11 AM (J30.89) Allergi c rhinitis, unspecifi ed; Note: Date Diagnosed : 11/06/2020 1:49 PM (J30.9) ; Start Date : Not Available [facility] 4 02:35:54 Chronic rhinitis 90089291 Active 2023 Meagan plascencia [place] - [facility] 4 09:16:38 Atypical facial pain 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 Medical Equipment None Reported. Allergies Allergen ID Allergen Name Allergen Category Reaction Reaction Severity Criticality Documentation Date Start Date Code Code System Note Provider Name and Address Organization Details Recorded Time 164339 Substance with sulfonami de structure and antibacte rial mechanism of action (substanc e) medicatio n other Not available Not available 11/30/2023 34449 8003 SNOMED React ion: unkno wn, unspe cifie d;; Not Available [facility] 4 01:24:22 Medications Name Sig Start Date Stop [...] mg tablet 02/17 completed Medicati on ID: [id number] B rand Name: atorvast atin Rogelio d Method: E-Prescr ibed Sub s Allowed: [...] mg tablet,ex tended release 24 hr TAKE 1.5 TABLETS BY MOUTH 1 TIME EACH DAY. active Not Available Not Available No t Available atenolol 25 mg tablet 02/17 completed Medicati on ID: [id number] B rand Name: atenolol Send Method: E-Prescr ibed Sub s Allowed: subs OK Medic ationGen ericName : atenolol Not Available Not Available Not Available fexofenad ine 180 mg tablet TAKE 1 TABLET BY MOUTH EVERY DAY active Not Available Not Available No t Available famotidin e 20 mg tablet TAKE 1 TABLET BY MOUTH 2 TIMES A DAY IF NEEDED FOR ACID SYMPTOMS active Not Available Not Available No t Available lorazepam 0.5 mg tablet TAKE 1 [...] mg) tablet 02/17 completed Medicati on ID: [id number] B rand Name: digoxin Send Method: E-Prescr [...] mg tablet 02/17 completed Medicati on ID: [id number] B rand Name: sertrali ne Send Method: E-Prescr ibed Sub s Allowed: subs OK Medic ationGen ericName : sertrali ne Not Available Not Available Not Available metronida zole 0.75 % topical gel APPLY TOPICALL Y 2 (TWO) TIMES A DAY. APPLY TO FACE IN A THIN LAYER TWICE DAILY AFTER WASHING active Not Available Not Available No t Available ipratropi um bromide 21 mcg (0.03 %) nasal spray SPRAY 2 SPRAYS 3 TIMES A DAY BY INTRANAS AL ROUTE 2024 active Not Available Not Available Not Avai lable loratadin e 10 mg tablet 2020 active Medicati on ID: [id number] B rand Name: rene israel Send Method: E-Prescr ibed Sub s Allowed: [...] Updated DateTime 08/21/2024 157.48 cm 25.6 kg/m2 45751.93 g Vangie Michael [place] - [facility] 08/21/2024 14:28:06 Date Recorded Body height Body mass index (BMI) Body weight Provider Name and Address Organization Details Last Updated DateTime 02/18/2024 157.48 cm 27.8 kg/m2 67814.04 g Vangie Michael [place] - [facility] 02/18/2024 09:12:09 Social History None recorded. Functional Status None recorded. Mental Status None recorded. Family History Nothing Reported. Medical History No medical history recorded. Gynecological HistoryNo gynecological history recorded. Obstetrics History GPAL:G 0 P 0 0 0 0 Past Encounters Encounter ID Performer Location Encounter Start Date Encounter Closed Date Diagnosis/Indication Diagnosis SNOMED-CT Code Diagnosis ICD10 Code Diagnosis IMO Codes Diagnosis Note [id number] MEAGAN MAGANA PA-C [facility] [address] [place] [address] 02/18/2024 08:58:15 02/18/2024 09:40:13 Chronic rhinitis 43568262 J31.0 Pain in face 80087898 R5 1.9 [id number] MEAGAN MAGANA PA-C [facility] [address] [place] [address] 08/21/2024 14:08:42 08/21/2024 14:55:22 Allergic rhinitis 41002544 J30.89 J30.9 Deviated nasal septum 12 2940482 J34.2 Anterior rhinorrhea 2772 68497 J34.89 Health Concerns Section Related Observation LastModified by Organization Detai ls LastModified Time None Recorded Concern Status LastModified by Organization Details LastModified Time None Recorded Advance Directives Directive None Recorded Payers Insurance Date Sequence Insurance Name Policy Number Policy Lynn Covered Member ID Lynn Member ID Guarantor Name 02/28/2025 1 [place] Marycarmen Gillespie [id number] Marycarmen Gillespie 02/28/2025 3 [place] Marycarmenian Gillespie [id number] Marycarmen Mehtaitez 02/28/2025 2 [employer] - SENIOR SERVICES PLAN F (MEDICARE SUPPLEMENT) [id number] Marycarmen Gillespie [id number] Marycarmen Gillespie Notes Date Note Type Note Provider Name and Address Organization Details Recorded Time 02/18/2024 text/html ROS as noted in the HPI 74 year old female presents for follow up on chronic allergic [...] on the septum. MELANIE RODRIGUEZ MD [address] [facility],[place] [address], [place], [address], [facility] - [facility] 02/18/2024 17:28:02 08/21/2024 text/html ROS as noted in the HPI 74 year old female presents for follow up on chronic allergic rhinitis and septal deviation. She reports her previous facial pressure has resolved but she still has constant clear rhinorrhea despite using Astelin every morning. Sometimes the left side of the nose bleeds a bit. She denies purulent rhinorrhea, frequent sneezing, and ocular itching. CT previously clear of mucosal thickening and sinonasal polyps. MELANIE RODRIGUEZ MD [address] [facility] [address], [place], [address], [facility] 08/21/2024 17:03:37 OBGyn Episode No OBEpisode recorded.
--- OUTSIDE RECORDS SUMMARY | 2025-06-22 17:33 | XMS_ITS | Clinical Summary ---
Author Organization LL [address] [facility] Address [address] [place] [address] Phone Care Team Providers Care Classroom Paraprofessional Name Role Phone Evaristo Hay Primary Care Provider [phone] Allergies Active Allergy Reactions Criticality Noted Date Comments Alendronic Acid Itching Low 03/29/2018 Nsaids (Non-Steroidal Anti-I nflammatory Drug) Flushing Low 07/24/2024 Other Flushing Low 04/30/2005 Nsaids Sulfa (Sulfonamide Antibiotics) Hives Low 04/18 Medications azelastine (ASTELIN) 137 mcg (0.1 %) nasal spray 2 Sprays by Each Nare route 2 times daily. Use in each nostril as directed 07/16/20 23 Active blood-glucose meter kit Use to check blood sugar once a day 12/16/19 24 Active capsaicin (ZOSTRIX) 0.075 % cream Apply to affected areas (feet) 4 times daily 04/06/20 24 Active cyclobenzaprine (FLEXERIL) 5 mg tablet Take 5 mg by mouth 3 times daily as needed. Active CALCIUM CARBONATE ORAL Take 1 tablet by mouth 2 (two) times a day. 03/17/20 23 Active pediatric multivitamin no.17 (CHILDREN'S CHEW MULTIVITAMIN ORAL) Take by mouth 1 (one) time each day. Active LORazepam (ATIVAN) 0.5 mg tablet Take 1 tablet (0.5 mg total) by mouth every 8 (eight) hours if needed. 04/25/20 24 Active timolol (TIMOPTIC) 0.5 % ophthalmic solution 03/11/20 22 Active metFORMIN XR (GLUCOPHAGE-XR) 500 mg 24 hr tabletIndications :Type 2 diabetes mellitus without complications (CMS/HCC V24, CMS/HCC V28) TAKE 2 TABLETS BY MOUTH DAILY (WITH BREAKFAST). AND TAKE 2 TABS IN THE EVENING 360 tablet 3 06/30/20 24 Active lancets (OneTouch Delica Plus Lancet) 30 gauge USE DIRECTED ONCE DAILY 200 each 1 07/05/20 24 Active metroNIDAZOLE (METROGEL) 0.75 % gel Apply topically 2 (two) times a day. Apply to face in a thin layer twice daily after washing 45 g 10/20/19 25 Active famotidine (PEPCID) 20 mg tablet Take 1 tablet (20 mg total) by mouth 2 (two) times a day if needed (acid symptoms). 60 tablet 11 12/06/19 25 Active rosuvastatin (CRESTOR) 10 mg tabletIndications :Mixed hyperlipidemia TAKE 1 TABLET BY MOUTH EVERY DAY 90 tablet 1 03/30/20 25 Active fexofenadine (ELDER) 180 mg tablet Take 1 tablet (180 mg total) by mouth if needed. Active metoprolol succinate (TOPROL-XL) 50 mg 24 hr tablet Take 1 tablet (50 mg total) by mouth 1 (one) time each day. Do not crush or chew. Active diclofenac (VOLTAREN) 1 % topical gel Apply 2 gram four times daily to affected joint 100 g 3 06/13/20 25 Active metoprolol succinate (TOPROL-XL) 50 mg 24 hr tablet Take 1.5 tablets (75 mg total) by mouth 1 (one) time each day. 135 tablet 3 10/17/19 25 025 Discontinued dilTIAZem CD (CARDIZEM CD) 120 mg 24 hr capsule Take 1 capsule (120 mg total) by mouth 1 (one) time each day. 025 Discontinued Active Problems Problem Noted Date Diagnosed Date [...] current antihypertensive medication regimen. Assessment & Plan (05/29/2025 5:20 PM EST): The patient has a history of arterial [...] by the electrophysiology service. Assessment & Plan (05/29/2025 5:20 PM EST): The patient has a history of frequent PVCs. The patient has been evaluated by the electrophysiology service in the past. She is currently on beta-lissa therapy with metoprolol. Ischemic evaluation with a stress echocardiogram in March 2024 did not show any echocardiographic evidence of ischemia. Structural heart disease evaluation with a cardiac MRI in April 2024 did not show any evidence of an VT, myocarditis, infiltrative cardiomyopathy, or hypertrophic cardiomyopathy. On today's visit, the patient states that her palpitations are slightly more pronounced than in the past. She continues to take Toprol 50 mg orally daily. Will order Holter monitor to evaluate her PVC burden. Will also repeat her echocardiogram to reevaluate her LVEF. Depending on the results, then we will consider if we need to proceed with any medication changes. Orders: Cardiac holter monitor (<= 48 hours); Future Transthoracic echocardiogram (TTE) complete with PRN contrast, bubble, strain, and 3D order panel; Future perflutren lipid microsphere (DEFINITY) 1.3 mL in sodium chloride 0.9% 8.7 mL injection Assessment & Plan (09/20/2024 11:25 AM EST): [...] frequency. Obstructive sleep apnea 07/31/2020 Overview (06/12/2024): [facility] [place] 06/20/2021. Wt 155#; BMI 28. [...] continue her current therapy. Assessment & Plan (05/29/2025 5:20 PM EST): The patient has a history of hyperlipidemia. She is currently on rosuvastatin 10 mg orally daily. Last lipid panel showed an adequate cholesterol control. Continue current therapy. Assessment & Plan (09/20/2024 11:25 [...] Controlled diabetes mellitus type II without complication (CMS/[facility] V24, CMS/[facility] V28) 10/11/2013 Polymyalgia rheumatica ([facility] V24) 12/09/2010 Overview (06/12/2024): Onset September 2010. Dr. Gould Anemia 04/30/2005 Overview (06/12/2024): chronic---Give NO BLOOD(adventism reasons) IMO Update Fall 2015 Unspecified sinusitis (chronic) 04/30/2005 Overview (06/12/2024): O update Resolved Problems Problem Noted Date Diagnosed Date Resolved Date Cardiomyopathy (CMS/HCC V24, CMS/HCC V28) 03/17/2024 09/20/2024 Overview (06/12/2024): Last Assessment [...] Encounters Date Type Department Care Team Description 06/18/2025 10:00 AM EST Ancillary Procedure [facility] - [address] [place] [id number] PVC's (premature ventricular contractions) 06/13/2025 10:45 AM EST Office Visit [address] [phone] Evaristo Hay PA Controlled diabetes mellitus type II without complication (CMS/HCC V24, CMS/HCC V28) (Primary Dx); Primary hypertension; Pure hypercholesterolemia; Obstructive sleep apnea; Osteoporosis, unspecified osteoporosis type, unspecified pathological fracture presence; PLMD (periodic limb movement disorder); Need for prophylactic vaccination and inoculation against influenza 06/11/2025 10:20 AM EST Lab Draw [address] Controlled type 2 diabetes mellitus without complication, without long-term current use of insulin [place] [place] [facility] [place] Anemia, unspecified type; Gastroesophageal reflux disease without esophagitis; Primary hypertension; Hyperlipidemia, unspecified hyperlipidemia type; Obstructive sleep apnea; PVC's (premature ventricular contractions); Osteoporosis, unspecified osteoporosis type, unspecified pathological fracture presence; Polymyalgia rheumatica ([facility] V24) 06/11/2025 Results Follow-Up Adult Medicine [address] [phone] Evaristo Hay PA 05/29/2025 4:00 PM EST Office Visit [facility] [address] [place] [address] Reddy Yi MD PVC's (premature ventricular contractions) (Primary Dx); Primary hypertension; Pure hypercholesterolemia from Last 3 Months Immunizations Immunization Administration Dates Next Due Influenza trivalent, 0.5mL ( Fluad) 65yo and older 06/13/2025,04/06/2024,03/17/2023,04/14,03/27/2021,03/07/2020,04/18/2019 ,04/02/2019,03/29/2018,03/23/2017 Influenza trivalent, 0.5mL, preservative free (Fluarix; FluLaval; Fluzone) ages 6mo and older (Afluria) 3 years and older 06/01/2016,04/04/2015,07/31/2014,08/04,04/16/2011,05/23/2008,05/12/2007 ,06/19/2006,05/29/2005 Influenza, Unspecified 03/27/2021 Pfizer SARS-CoV-2 COVID-19, mRNA, LNP-S, preservative free 12/29/2021,09/13/2020 [...] SLIDES); COMMENT: 03/2003 OTHER SURGICAL HISTORY PROCEDURE: OR LIG/TRNSXJ FLP TUBE ABDL/VAG APPR UNI/BI OTHER SURGICAL HISTORY PROCEDURE: HISTORICAL TOTAL HYSTERECTOMY W/O BSO COLONOSCOPY 2005 PROCEDURE: HISTORICAL COLONOSCOPY; COMMENT: negative screening exam. COLONOSCOPY 2016 PROCEDURE: HISTORICAL COLONOSCOPY; COMMENT: Negative screening examination. UPPER GASTROINTESTINAL ENDOSCOPY 07/20/2018 PROCEDURE: OR UPPER GI ENDOSCOPY PERFORMED; COMMENT: Visually normal [...] unspecified DX:Anemia, u nspecified; COMMENT: chronic---Give NO BLOOD(adventism reasons) Anxiety state, unspecified DX:An xiety state, [...] your loved ones. For example, child care provider or elderly care for an older adult? [...] Sign Reading Time Taken Comments Blood Pressure 119/71 06/13/2025 11:07 AM EST Pulse 78 06/13/2025 11:07 AM EST Temperature 36.6 C (97.8 F) 06/13/2025 11:07 AM EST Respiratory Rate 15 06/13/2025 11:07 AM EST Oxygen Saturation 98% 06/13/2025 11:07 AM EST Inhaled Oxygen Concentration - - Weight 67.1 kg (148 lb) 06/13/2025 11:07 AM EST Height 157.5 cm (5' 2 ) 06/13/2025 11:07 AM EST Body Mass Index 27.07 06/13/2025 11:07 AM EST Plan of Treatment Upcoming Encounters Date Type Department Care Team (Late st Contact Info) Description 08/09/2025 9:00 AM EST Ancillary Procedure [facility] - [address] [place] [address] 10/01/2025 10:45 AM EDT Office Visit Adult Medicine [facility] [address] [place] [address] Evaristo Hay PA [address] [place] [phone] Health Maintenance Due Date Last Done Comments Medicare Annual Wellness Visit 06/27/2022 COVID-19 Vaccine ( season) 2025 07/08/2023, 12/29/2021, 05/13/2021, Additional history exists Falls Risk Assessment 07/24/2025 07/24/2024, 024 Diabetes: Blood Sugar Control Test (HGBA1C) 12/09/2025 06/11/2025, 12/01/2024, 08/04/2024, Additional history exists Diabetes: Annual Retina Eye Exam 05/11/2026 05/11/2025, 08/01/2024, 06/29/2023 Diabetes: Annual Foot Exam 05/29/2026 05/29/2025, DTaP,Tdap,and Td Vaccines (4 - Td or Tdap) 06/01/2026 06/01/2016, 04/03/2005, 04/03/2005 Diabetes: Annual Urine Albumin-Creatinine Ratio (uACR) 06/11/2026 06/11/2025, 12/01/2024, 08/04/2024, Additional history exists Diabetes: Annual GFR (Glomerular Filtration Rate) 06/11/2026 06/11/2025, 12/01/2024, 08/25/2024, Additional history exists Hypertension/CHF/CAD Annual BMP Blood Test 06/11/2026 06/11/2025, 12/01/2024, 08/25/2024, Additional history exists Social Influencers of Health Screening 06/13/2026 06/13/2025, 08/07/2024 Colorectal Cancer Screening: Colonoscopy 07/28/2026 07/28/2016 Breast Cancer Screening 08/01/2026 08/01/19, 07/22/2023, 08/06/2022, Additional history exists Cholesterol Screening (Lipid Panel) 06/11/2030 06/11/2025, 12/01/2024, 08/04/2024, Additional history exists Osteoporosis Screening (Bone Density Screening) 04/15/2033 04/15/2023, 11/22/2020, 10/06/2017 Hepatitis C Screening Completed 10/09/2013 Zoster Vaccines Completed 06/17/2020, 02/17, 08/04/2012 Pneumococcal Vaccine: 50+ Years Completed 03/17/2023, 09/17/2017, 04/17/2014 RSV Immunization Adult Patients Completed 07/08/2023 Depression Screening Completed 06/13/2025, 04/06/20 Influenza Vaccine Completed 06/13/2025, , 03/17/2023, Additional history exists HIB Vaccines Aged Out [...] this topic Medical Devices Implanted Type Area [employer] T[employer] Device Identifier Shelf Expiration Date Model / Serial / Lot Stent Uret Stretch Vl 7fr 22-3 - Sn/A - [id number] Implanted:Qty: 1 on 07/24/2024 by Aiden Katz MD at [facility] Stents Left: Ureter [employer]GYNECOLG Y 12/07/2026 [id number] / N/A / [id number] Procedures Procedure Name Priority Date/Time Associated Diagnosis Comments LIPID PANEL WITH REFLEX TO DIRECT LDL Routine 06/11/2025 10:29 AM EST Controlled type 2 diabetes mellitus without complication, without long-term current use of insulin ([facility] V24, [facility] V28) Anemia, unspecified type Gastroesophageal reflux disease without esophagitis Primary hypertension Hyperlipidemia, unspecified hyperlipidemia type Obstructive sleep apnea PVC's (premature ventricular contractions) Osteoporosis, unspecified osteoporosis type, unspecified pathological fracture presence Polymyalgia rheumatica ([facility] V24) MICROALBUMIN CREATININE URINE RATIO Routine 06/11/2025 10:29 AM EST Controlled type 2 diabetes mellitus without complication, without long-term current use of insulin ([facility] V24, [facility] V28) Anemia, unspecified type Gastroesophageal reflux disease without esophagitis Primary hypertension Hyperlipidemia, unspecified hyperlipidemia type Obstructive sleep apnea PVC's (premature ventricular contractions) Osteoporosis, unspecified osteoporosis type, unspecified pathological fracture presence Polymyalgia rheumatica ([facility] V24) COMPREHENSIVE METABOLIC PANEL Routine 06/11/2025 10:29 AM EST Controlled type 2 diabetes mellitus without complication, without long-term current use of insulin ([facility] V24, [facility] V28) Anemia, unspecified type Gastroesophageal reflux disease without esophagitis Primary hypertension Hyperlipidemia, unspecified hyperlipidemia type Obstructive sleep apnea PVC's (premature ventricular contractions) Osteoporosis, unspecified osteoporosis type, unspecified pathological fracture presence Polymyalgia rheumatica ([facility] V24) HEMOGLOBIN A1C Routine 06/11/2025 10:29 AM EST Controlled type 2 diabetes mellitus without complication, without long-term current use of insulin ([facility] V24, [facility] V28) Anemia, unspecified type Gastroesophageal reflux disease without esophagitis Primary hypertension Hyperlipidemia, unspecified hyperlipidemia type Obstructive sleep apnea PVC's (premature ventricular contractions) Osteoporosis, unspecified osteoporosis type, unspecified pathological fracture presence Polymyalgia rheumatica ([facility] V24) EXTERNAL DIABETIC RETINA EYE EXAM 05/11/2025 CULTURE URINE Routine 03/23/2025 12:00 AM EDT Frequency of micturition MG MAMMO DIGITAL SCREENING W JOHN BILAT Routine 08/01/2024 1:49 PM EST Encounter for screening mammogram for breast cancer DEPRESSION SCREENING Routine 04/06/2024 FALLS RISK ASSESSMENT Routine 04/06/2024 DIABETES FOOT EXAM Routine 04/06/2024 DXA BONE DENSITY STUDY 1+ SITS AXIAL [...] Recently Relevant to Health Maintenance Results * Lipid panel with reflex to direct LDL (06/11/2025 10:29 AM EST) Cholesterol 126 0 - 200 mg/dL 06/11/2025 2:04 PM [facility] Triglycerides 76 0 - 150 mg/dL 06/11/2025 2:04 PM [facility] HDL 62 >=40 mg/dL 06/11/2025 2:04 PM [facility] LDL Calculated 49 0 - 100 mg/dL 06/11/2025 2:04 PM [facility] Comment:Estimated LDL Calcul ated using equation: Total cholesterol - HDL cholesterol - (Triglycerides/5) VLDL Cholesterol Jaden 15.2 mg/dL 06/11/2025 2:04 PM [facility] Non HDL Chol. (LDL+VLDL) 64 <145 mg/dL 06/11/2025 2:04 PM EST [facility] Chol/HDL Ratio 2.0 0.0 - 4.4 06/11/2025 2:04 PM [facility] Blood Venous blood specimen / Unknown Venipuncture / Unknown 06/11/2025 10:29 AM EST 06/11/2025 10:29 AM EST Evaristo PATRICIA LAB BLOOD ORDERABLES Sybil l Result Performing Organization Address City/[facility]/ZIP Co de Phone Number [facility] [address] [place] [address], [place] [phone] * Microalbumin creatinine urine ratio (06/11/2025 10:29 AM EST) Creatinine, Urine 95.0 mg/dL 06/11/2025 2:10 PM [facility] Microalb, Ur <3.0 0.0 - 29.0 mg/L 06/11/2025 2:10 PM [facility] Microalb/Creat Ratio <3 <30 mg/g creat 06/11/2025 2:10 PM [facility] Urine Urine specimen obtained by clean catch procedure / Unknown Non-blood Collection / Unknown 06/11/2025 10:29 AM EST 06/11/2025 10:29 AM EST Evaristo PATRICIA LAB URINE ORDERABLES Sybil l Result [facility] [address] [place] [address], [place] [phone] * (ABNORMAL) Hemoglobin A1c (06/11/2025 10:29 AM EST) Hemoglobin A1C 6.8(H) <6.5 % LAB CHEMISTRY METHOD 06/11/2025 8:11 PM [facility] Mean Bld Glu Estim. 148 mg/dL LAB CHEMISTRY METHOD 06/11/2025 8:11 PM [facility] Blood Venous blood specimen / Unknown Venipuncture / Unknown 06/11/2025 10:29 AM EST 06/11/2025 10:29 AM EST Evaristo PATRICIA LAB BLOOD ORDERABLES Sybil l Result [facility] [address] [place] [address], * (ABNORMAL) Comprehensive metabolic panel (06/11/2025 10:29 AM EST) Sodium 140 133 - 145 mmol/L 06/11/2025 2:09 PM [facility] Potassium 4.1 3.5 - 5.5 mmol/L 06/11/2025 2:09 PM [facility] Chloride 101 96 - 110 mmol/L 06/11/2025 2:09 PM [facility] CO2 31 21 - 32 mmol/L 06/11/2025 2:09 PM [facility] Anion Gap 8 3 - 11 06/11/2025 2:09 PM [facility] Glucose 131(H) 70 - 100 mg/dL 06/11/2025 2:09 PM [facility] BUN 14 5 - 25 mg/dL 06/11/2025 2:09 PM [facility] Creatinine 0.68 0.50 - 1.10 mg/dL 06/11/2025 2:09 PM [facility] eGFR 92 >=60 mL/min/1. 73m2 06/11/2025 2:09 PM [facility] Comment:Calculation based on the Chronic Kidney Disease Epidemiology Collaboration (CKD-EPI) equation refit without adjustment for race. BUN/Creatinine Ratio 20.6 06/11/2025 2:09 PM [facility] Calcium 8.2(L) 8.5 - 10.5 mg/dL 06/11/2025 2:09 PM [facility] AST (SGOT) 22 10 - 42 unit/L 06/11/2025 2:09 PM [facility] ALT (SGPT) 18 10 - 60 unit/L 06/11/2025 2:09 PM [facility] Alkaline Phosphatase 67 42 - 121 unit/L 06/11/2025 2:09 PM [facility] Total Protein 6.7 6.0 - 8.0 g/dL 06/11/2025 2:09 PM [facility] Albumin 4.0 3.2 - 5.0 g/dL 06/11/2025 2:09 PM [facility] Total Bilirubin 0.6 0.0 - 1.4 mg/dL 06/11/2025 2:09 PM [facility] Blood Venous blood specimen / Unknown Venipuncture / Unknown 06/11/2025 10:29 AM EST 06/11/2025 10:29 AM EST Evaristo PATRICIA LAB BLOOD ORDERABLES Sybil l Result [facility] [address] [place] [address], [place] [phone] * External Diabetic Retina Eye Exam Report (05/11/2025) Anatomical Region Laterality Modality Ultrasound Provider [facility] US PROCEDURES Final Result * Culture urine (03/23/2025 12:00 AM EDT) Culture, Urine No growth 03/24/2025 11:03 AM EDT [facility] Urine Urine specimen from urethra / Unknown Non-blood Collection / Unknown 03/23/2025 03/23/2025 1:46 PM EDT us Grzegorz Argueta MD LAB MICROBIOLOGY - GENERAL ORDER YOLANDA Final Result [facility] [address] [place] [address], [place] [phone] * MG Mammo Digital Screening w John [...] is recommended in 1 year. Mammo Location: [facility], [address] [place] [address], [id number], . -------- FINAL REPORT -------- Dictated By: Sarah Buchanan Dictated Date: 08/02/2024 08:44 ET Assigned Physician: Sarah Buchanan Reviewed and Electronically Signed By: Sarah Buchanan Signed Date: 08/02/2024 08:59 ET Workstation ID: [id number] Transcribed By: Self Edit Transcribed Date: 08/02/2024 08:47 ET Narrative 08/02/2024 8:59 AM EST STUDY: Bilateral screening mammography with tomosynthesis and CAD TECHNIQUE: Bilateral full-field digital screening mammography is obtained and read in conjunction with computer-aided detection. Tomosynthesis as well as 2-D C view imaging were obtained. COMPARISON: Comparison made to multiple prior, most recent July 22, 2023, and most remote June 04, 2015. RIGHT BREAST: No significant masses, suspicious calcifications or other abnormalities are seen. LEFT BREAST: Tissue marker from previous needle core biopsy. No [...] is recommended in 1 year. Mammo Location: [facility], [address] [place] [address], [phone], . -------- FINAL REPORT -------- Dictated By: Sarah Buchanan Dictated Date: 08/02/2024 08:44 ET Assigned Physician: Sarah Buchanan Reviewed and Electronically Signed By: Sarah Buchanan Signed Date: 08/02/2024 08:59 ET Workstation ID: [id number] Transcribed By: Self Edit Transcribed Date: 08/02/2024 08:47 ET Evaristo PATRICIA IMG BI PROCEDURES Final R esult * Falls Risk Assessment (04/06/2024) Falls Risk Assessment abstracted Historical Provider MD HEALTH MAINTENANCE Final Result * Depression Screening (04/06/2024) Pathologist [facility] Depression Screening abstracted Historical Provider MD HEALTH MAINTENANCE Final Result * Diabetes Foot Exam (04/06/2024) [facility] Diabetes: Annual Foot Exam abstracted us Historical Provider MD HEALTH MAINTENANCE Final Result * DXA BONE DENSITY STUDY 1+ SITS AXIAL SKEL (04/15/2023 11:06 AM EDT) Anatomical Region Laterality Modality Bone Densitometr y 01/13/2023 2:58 PM EDT Narrative 04/15/2023 2:46 PM EDT BONE DENSITY Lumbar Spine T-score is -1.9 (SD relative to 20-29 y/o adult) Z-score is +0.3 (SD relative to age matched peers) This is consistent with osteopenia by criteria defined by the WHO. Left Hip T-score is -2.4 Z-score is -0.5 This is consistent with osteopenia by criteria defined by the WHO. Comparison exam(s): significant increase in bone density of hip when compared to most recent bone density examination Confidence level is +/-95%. Impression: Based on the World Health Organization criteria, Marycarmen Escobar should be classified as having osteopenia. This patient has a 22% risk of major osteoporotic fracture and a 7.9% risk of hip fracture over the next 10 years. (World Health Organization Fracture Risk Assessment) [facility] Department of Internal Medicine [...] (World Health Organization Fracture Risk Assessment) [facility] Department of Internal Medicine [...] DXA PROCEDURES Final Result * Colonoscopy (07/28/2016) [facility] Colonoscopy normal abstracted Anatomical Region Laterality Modality Other Historical Provider HEALTH MAINTENANCE Final Result * Hepatitis C Screening (10/09/2013) [facility] Hepatitis C Screening abstracted Historical Provider HEALTH MAINTENANCE Final Result from Last 3 Months or Most Recently Relevant to Health Maintenance Insurance MEDICARE MEDICAID [place] [facility] Care Teams Classroom Paraprofessional Relationship Specialty Start Date End Date Evaristo Hay PA [address] [place] [address] PCP - General Internal Medicine 07/13/24
--- OUTSIDE RECORDS SUMMARY | 2025-06-22 17:33 | XMS_ITS | Encounter Summary ---
Author Organization [facility] Address [address] [place] [address] Care Team Providers Care Mouthpiece Maker Name Role Phone Evaristo Hay Primary Care Provider [phone] Encounter Details Date Type Department Care Team (Late Contact Info) Description 06/01/[address] [facility] - Main Lab [address] [facility], [facility] [place] [phone] Aiden Katz MD [address] [facility] [address] [place] [phone] Pyuria Social History Tobacco Use Types Packs/Day [...] Department Care Team (Late Contact Info) Description 08/09/2025 9:00 AM EST Ancillary Procedure [facility] - [facility] [address] [facility] [address] [place] [phone] 10/01/2025 10:45 AM EDT Office Visit Adult Medicine [address] [place] [address] Evaristo Hay PA [facility] [place] [address] documented as of this encounter Procedures Procedure Name Priority Date/Time Associated Diagnosis Comments BACTERIAL IDENTIFICATION AND SUSCEPTIBILITY, AEROBIC Routine 05/31/2024 12:00 AM EST Pyuria documented in this encounter Results * (ABNORMAL) Bacterial identification and susceptibility, aerobic (05/31/2024 12:00 AM EST) Culture, Bacterial ID and Sensitivity Klebsiella pneumoniae ssp pneumoniae(A) ARTI 06/02/2024 8:57 AM EST [facility] Comment: This is an edited [...] MICROBIOLOGY - GENERAL ORDER YOLANDA Final Result [facility] [address] [place] [address], documented in this encounter Visit Diagnoses Diagnosis Pyuria Other nonspecific finding on examination of urine documented in this encounter Care Teams Mouthpiece Maker Relationship Specialty Start Date End Date Evaristo Hay PA [address] [place] [address] PCP - General Internal Medicine 07/13/24 documented as of this encounter
--- OUTSIDE RECORDS SUMMARY | 2025-06-22 17:33 | XMS_ITS | Data Portability ---
Author Organization [facility] Address [address] [place] [address] Care Team Providers Care Air Quality Manager Name Role Phone IRON MULLIGAN Primary Care Provider Assessment No assessment recorded. Plan of Treatment Reminders Order Date Submit Date Provider Last Modified By Organization Details Last Modified Time Details Appointments None recorded. Lab None recorded. Referral None recorded. Procedures None recorded. Surgeries None recorded. Imaging None recorded. Medication Orders doxycycline hyclate 100 mg capsule 2022 023 [facility], [address] [place] [address], [address], 13:32:14 montelukast 10 mg tablet 2022 023 [facility], [address] [place], [address], 13:32:14 Patient TargetsNo targets recorded. Patient Instructions Encounter Date Encounter Id Patient Instructions Last Modified By Organization Details Last Modified Time 08/22/2022 [id number] Acute Sinusitis: Care Instructions [email or web address] Not available 08/22/2022 13:32:12 Based on your [...] watery post nasal drip. 6. Saline Nasal [place] is recommended. Since an antibiotic was prescribed [...] if you have any questions or concerns. Not available 08/22/2022 13:31:44 Reason for Referral None Reported. Problems Name Problem SNOMED Code Status Onset Date Resolution Date Notes Provider Name and Address Organization Details Recorded Time Hypertensive disorder 69779687 Active 2022 Bev Fullerton null, PA - [facility] 13:04:19 Diabetes mellitus 50229577 Active 2022 Bev Fullerton null, PA - [facility] 13:04:27 Osteoporosis 21215492 Active 2022 Bev Iona null, PA - [facility] 13:04:34 Hyperlipidemia 42767832 Active 2022 Bev Iona null, PA - [facility] 13:04:39 Anxiety 59117149 Active 2022 Bev Fullerton null, PA - [facility] 13:04:45 Spasm of back muscles 407121878 Active 2022 HARSHAD Michel - [facility] 13:05:01 Problem Notes [...] Name and Address Organization Details Recorded Time 639474 Substance with sulfonami de structure and antibacte rial mechanism of action (substanc e) medicatio n hives Not available low 08/22/2022 98884 [id number] SNOMED Bev plascencia [facility] - [facility] [...] mass index (BMI) Body weight Oxygen saturation Pain severity - 0-10 verbal numeric rating [Score] - Reported Heart rate Respiratory rate Body temperature Systolic And Diastolic Provider Name and Address Organization Details Last Updated DateTime 157.48 cm 27.4 kg/m2 34535.8 6 g 97 % 0 80 /min 20 /min 97.9 [degF] 105/74 mm[Hg] Bev Monson [facility] 13:07:35 Social History Question Answer Notes LastModified by Wylio Details LastModified Time Tobacco Smoking Status Never Smoker Bev plascencia [facility] 08/22/2022 13:05:08 Have You Had Direct Contact, Or Contact During Intimacy, With Monkeypox Rash, Scabs, Or Body Fluids From A Person With Monkeypox? No Information not available 08/22/2022 Have You Recently Traveled Abroad? No Information not available 08/22/2022 Sex: Unknown Functional Status Question Answer Note LastModified by Wylio Details LastModified Time Do you use any [...] Recorded Time zoster recombinant 0 completed Bev Fullerton null, PA - [facility] 08/22/2022 13:02:55 zoster recombinant 0 completed Bev Fullerton null, PA - [facility] 08/22/2022 13:02:55 Influenza, high-dose, quadrivalent, PF 1 completed Bev Fullerton null, PA - [facility] 08/22/2022 13:02:55 COVID-19, mRNA, LNP-S, PF, 30 mcg/0.3 mL dose 1 completed Bev Fullerton null, PA - [facility] 08/22/2022 13:02:55 COVID-19, mRNA, LNP-S, PF, 30 mcg/0.3 mL dose 1 completed Bev Iona null, PA - [facility] 08/22/2022 13:02:55 COVID-19, mRNA, LNP-S, PF, 30 mcg/0.3 mL dose 1 completed Bev Iona null, PA - [facility] 08/22/2022 13:02:55 COVID-19, mRNA, LNP-S, PF, 30 mcg/0.3 mL dose, ming-sucrose 2 completed Bev Fullerton null, PA - [facility] 08/22/2022 13:02:55 pneumococcal polysaccharide PPV23 4 completed Bev Fullerton null, PA - [facility] 08/22/2022 13:02:55 Td(adult) unspecified formulation 5 completed Bev Fullerton null, PA - [facility] 08/22/2022 13:02:55 Tdap 6 completed Bev Fullerton null, PA - [facility] 08/22/2022 13:02:55 Pneumococcal conjugate PCV 13 8 completed Bev Fullerton null, PA - [facility] 08/22/2022 13:02:55 zoster live 3 completed Bev Fullerton null, PA - [facility] 08/22/2022 13:02:55 Influenza, high-dose, trivalent, PF 0 completed Bev Fullerton null, PA - [facility] 08/22/2022 13:02:55 Influenza, high-dose, trivalent, PF 7 completed Bev Iona null, PA - [facility] 08/22/2022 13:02:55 Influenza, high-dose, trivalent, PF 8 completed Bev Iona null, PA - [facility] 08/22/2022 13:02:55 Influenza, high-dose, trivalent, PF 9 completed Bev Fullerton null, PA - [facility] 08/22/2022 13:02:55 Influenza, high-dose, trivalent, PF 2 completed Bev Fullerton null, PA - [facility] 08/22/2022 13:02:55 Influenza, high-dose, trivalent, PF 9 completed Bev Iona null, PA - [facility] 08/22/2022 13:02:55 Influenza, split virus, trivalent, preservative 5 completed Bev Fullerton null, PA - [facility] 08/22/2022 13:02:55 Influenza, split virus, trivalent, preservative 5 completed Bev Fullerton null, PA - [facility] 08/22/2022 13:02:55 Influenza, split virus, trivalent, preservative 1 completed Bev Fullerton null, PA - [facility] 08/22/2022 13:02:55 Influenza, split virus, trivalent, preservative 7 completed Bev Iona null, PA - [facility] 08/22/2022 13:02:55 Influenza, split virus, trivalent, preservative 8 completed Bev Fullerton null, PA - [facility] 08/22/2022 13:02:55 Influenza, split virus, trivalent, preservative 5 completed Bev Fullerton null, PA - [facility] 08/22/2022 13:02:55 Influenza, split virus, trivalent, preservative 6 completed Bev Fullerton null, PA - [facility] 08/22/2022 13:02:55 Influenza, split virus, trivalent, preservative 6 completed Bev Fullerton null, PA - [facility] 08/22/2022 13:02:55 Influenza, split virus, trivalent, PF 3 completed Bev Iona null, PA - [facility] 08/22/2022 13:02:55 Past Encounters Encounter ID Performer Location Encounter Start Date Encounter Closed Date Diagnosis/Indication Diagnosis SNOMED-CT Code Diagnosis ICD10 Code Diagnosis IMO Codes Diagnosis Note [id number] [address] [facility] [address] [place] [address] 09/16/2021 14:08:53 09/16/2021 17:02:30 [id number] [address] [facility] [address] [place] [address] 09/07/2020 12:07:58 09/07/2020 13:07:48 [id number] HARSHAD MEJIAS [address] [address] [place] [address] 08/22/2022 10:54:33 08/22/2022 13:32:54 Acute sinusitis 07047699 J01.90 Continue your Saline Nasal De Peyster and Marie Use Humidifier in your home. Stay Warm. Health Concerns Section Related Observation LastModified by Organization Detai ls LastModified Time None Recorded Concern Status LastModified by Organization Details LastModified Time None Recorded Advance Directives Directive None Recorded Payers Insurance Date Sequence Insurance Name Policy Number Policy Lynn Covered Member ID Lynn Member ID Guarantor Name 08/22/2022 1 MEDICARE B-[place]: [facility] [employer] Marycarmen Gillespie [id number] 2 Marycarmen Gillespie 08/22/2022 2 [facility] [id number] 2 Marycarmen Gillespie [id number] Marycarmen Gillespie Notes Date Note Type Note Provider Name and Address Organization Details Recorded Time 08/22/2022 text/html Sinus Complaints UCReported by PatientHPIFor location, patient reportssinus pain,facial pain,pain in the cheek, andsinus pressure. For associated symptoms, patient reportsnasal discharge from both nostrils,difficulty breathing,headache back of head,sore throat,post nasal drip,nasal passage blockage bilaterally, andear fullnessbut reportsno fever,no nausea or vomiting, andno cough. For quality, patient reportsworseningandyel low. For onset/timing, patient reportsinitially started 2months agoandprogressively worse over last 4days. For duration, patient reportschronic. For severity, patient reportsmild. For context, patient reportsno recent sick contacts. For risk factors, patient reportsno current smoking or tobacco use. For alleviating factors, patient reportssaline nasal rinsesandwarm compress.Called PCP about 2 weeks ago - was put on Amoxicillin on relief. Feels like she is now worsening over the last 3 days. Yellow discharge. Does have Allergies - takes Marie and saline nasal spray. Started to cough and now is a productive cough. No asthma history. HARSHAD MEJIAS [address] [place] [address] [place], [address], PA - [facility] 08/22/2022 13:35:55 OBGyn Episode No OBEpisode recorded.
--- OUTSIDE RECORDS SUMMARY | 2025-06-22 17:33 | XMS_ITS | Encounter Summary ---
Author Organization [facility] Address [address] [place] [address] Care Team Providers Care Tube Turner Name Role Phone Evaristo Hay Primary Care Provider [phone] Encounter Details Date Type Department Care Team (Late st Contact Info) Description 06/11/2025 Results Follow-Up Adult [address] [phone] Evaristo Hay PA [address] [place] [phone] Social History Tobacco Use Types Packs/Day Years [...] care for your loved ones. For example, children counselor or elderly care for an older adult? [...] Description 08/09/2025 9:00 AM EST Ancillary Procedure [facility] - [facility] [address] [facility] [address] [place] [address] 10/01/2025 10:45 AM EDT Office Visit Adult Medicine [address] [place] [address] Evaristo Hay PA [address] [place] [phone] documented as of this encounter Visit Diagnoses Not on filedocumented in this encounter Additional Health Concerns Assessment Noted Time PHQ-9 Depression Total Score: 0 12/05/19 25 9:17 PM EDT documented as of this encounter Care Teams Tube Turner Relationship Specialty Start Date End Date Evaristo Hay PA [address] [place] [address] PCP - General Internal Medicine 07/13/24 documented as of this encounter
[2025-06-22 19:26] LABS: Erythrocyte Sedimentation Rate 14 MM/HR (0-20)
== END 2025-06-22 13:24 | disposition home or self-care (01) ==
LOC: HO.HKASLDS 13:23
PROVIDERS: PCP Physician Assistant Medical; Visit Provider Internal Medicine Rheumatology
DX: M35.3 Polymyalgia rheumatica (principal)
CPT/HCPCS: 36415; 85652; 86140

== ENCOUNTER 2025-06-27 13:45 | Outpatient (AMB) | payer MEDICARE, OTHER, MEDICAID, SELFPAY ==
--- NOTE | 2025-06-27 13:49 | MHC.OFFVIS ---
Vital Signs 06/27/25 13:50 Height 5 ft 2 in Weight 148 lb 12.992 oz BMI 27.2 BP 110/70 Blood Pressure Location Rt radial Position Sitting Pulse 74 Pulse Source Pulse Oximeter Pulse Oximetry (%) 97 Oxygen Delivery Method Room Air Intake Visit Reasons: LT shoulder cortisone inj Intake Note: Patient presents for fibromyalgia and osteoarthritis. Also for Left shoulder cortisone inj. Accompanied by: Self / Same As Patient Allergies fluticasone (From Flonase) Allergy (Mild, Verified 06/27/25 13:50) Blister Sulfa (Sulfonamide Antibiotics) Allergy (Mild, Verified 06/27/25 13:50) Hives HPI HPI LT shoulder cortisone inj: Details: She recently had a fall after a door hit her hard on her back. When she fell she had increased pain in her right elbow and left shoulder. She presented to the ER and reports that there is a small chip of her bone in her elbow. She followed up with [facility]. She starting physical therapy. She continues to have left shoulder pain with limited range of motion. She has difficulty getting dressed and has to ask her daughter for assistance. She had x-ray of left shoulder at [facility] last Wednesday. I was able to review results through [facility], to which reveal mild degenerative arthritis. [facility] Medical History (Updated 06/27/25 @ 21:15 by Christopher Tse MD) Tendinitis Sciatica Arthritis Allergies Polymyalgia rheumatica Osteoarthritis Surgical History H/O ureteroscopy H/O: hysterectomy Social History Patient Tobacco Use Status: Never used Tobacco Physical Exam Vital Signs: Last Vital Signs Pulse 74 06/27/25 13:50 BP 110/70 06/27/25 13:50 Pulse Ox 97 06/27/25 13:50 Oxygen Delivery Method Room Air 06/27/25 13:50 BMI result Body Mass Index 27.2 Const Other: General: Comfortable Skin: No lesions seen MSK: Tender to palpate bilateral shoulders. She is unable to abduct her left shoulder past 90 degrees. Right shoulder abduction is 160 degrees. Limited full internal external rotation of left shoulder due to pain. Normal internal external rotation of right shoulder. Office Procedures AMB Joint Injection/Aspiration Joint Injection/Aspiration Details: Left shoulder joint Prep: site was prepped using aseptic technique Injected: 40 mg of, Kenalog, with 1 mL of and 1% plain lidocaine Procedure: Informed verbal consent was obtained. The patient tolerated the procedure well. Postprocedure protocol was discussed with patient. Coding - Large joint Procedure code (CPT) selection complete Office Meds lidocaine (PF) 10 mg/mL (1 %) injection solution Performing Provider: Christopher Tse MD Performing Location: [facility] Administered by: Christopher Tse MD on 06/27/25 14:06 Dose Route Admin Location Dispensed Lot Number Expiration Date [facility] Rn Ante Partum 1 mL intra-articular shoulder 2 mL [id number] 03/18/28 40076-009-88 [employer] Total Dispensed Waste 2 mL 50 % Kenalog 40 mg/mL suspension for injection Performing Provider: Christopher Tse MD Performing Location: [facility] Administered by: Raji Montgomery RN on 06/27/25 14:06 Dose Route Admin Location Dispensed Lot Number Expiration Date [facility] Rn Ante Partum 40 mg intra-articular shoulder 1 mL [id number] 01/15/27 [address]-2 [employer] Total Dispensed Waste 1 mL 0 % Assessment & Plan Assessment & Plan (1) Tendonitis of left rotator cuff: Code(s): M75.82 - Other shoulder lesions, left shoulder Category: Medical Plan: Patient received left shoulder cortisone injection this visit Return to clinic in August for management of PMR Orders: Orders AMB Joint Injection/Aspiration Today M75.50 - Bursitis of unspecified shoulder Coding Level of Care Code Est Pt Level 3 (43149) Add On Problem Visit Only Diagnoses Tendonitis of left rotator cuff M75.82 CPT Codes Coding - Large joint: 60109 - Large joint ([id number])
[2025-06-27 13:50] VITALS: BP 110/70; PULSE 74; O2SAT 97; BMI 27.2
--- OUTSIDE RECORDS SUMMARY | 2025-06-27 21:19 | XMS_ITS | Encounter Summary ---
Author Organization [facility] Address [address] [place] [address] Care Team Providers Care Green Chain Offbearer Name Role Phone Evaristo Hay Primary Care Provider [phone] Encounter Details Date Type Department Care Team (Late st Contact Info) Description 06/11/2025 Results Follow-Up Adult [address] [phone] Evaristo Hay PA [address] [place] [phone] Social History Tobacco Use Types Packs/Day Years [...] care for your loved ones. For example, childrens club attendant or elderly care for an older adult? [...] Description 08/09/2025 9:00 AM EST Ancillary Procedure [facility] - [facility] [address] [facility] [address] [place] [address] 10/01/2025 10:45 AM EDT Office Visit Adult Medicine [address] [place] [address] Evaristo Hay PA [address] [place] [phone] documented as of this encounter Visit Diagnoses Not on filedocumented in this encounter Additional Health Concerns Assessment Noted Time PHQ-9 Depression Total Score: 0 12/05/19 25 9:17 PM EDT documented as of this encounter Care Teams Green Chain Offbearer Relationship Specialty Start Date End Date Evaristo Hay PA [address] [place] [address] PCP - General Internal Medicine 07/13/24 documented as of this encounter
--- OUTSIDE RECORDS SUMMARY | 2025-06-27 21:19 | XMS_ITS | Data Portability ---
Author Organization [place] - [facility], Allergy Address [address] [address] Assessment Encounter Date Assessment Date Assessment LastModified [...] hot water and dried in a hot tray drier. Recommend frequent vacuuming and damp-mopping, preferably by another member of the household or while wearing a mask if patient must do this themself. Consider an air purifier with HEPA filter, which should be regularly changed according to neurourologist schedule. Vents and ducts in the home [...] Imaging CT, sinuses, w/o contrast 2023 024 [facility] [address], [address], 4 10:54:00 Medication Orders ipratropium bromide 21 mcg (0.03 %) nasal spray 2024 025 [facility]acy #1972, [address] [place] [address], [address], 5 14:35:30 azelastine 137 mcg (0.1 %) nasal spray 2023 024 [facility] #1972, [address] [place] [address], [address], 4 09:40:51 Patient TargetsNo targets recorded. Patient InstructionsNo instructions recorded. Reason for Referral None Reported. Results Created Date Observation Date Name Description Value Unit Range Abnormal Flag Note LastModifiedBy Organization Detail LastModifiedTime 02/18/20 CT, sinus es, w/o contr ast No observ ation record ed. [email or web address] [facility] [address], [address], 02/18/2024 09:43:53 02/24/20 24 02/18/2024 CT, sinus es, w/o contr ast No observ ation record ed. [email or web address] [facility] Of [address], [address], 02/24/2024 10:03:38 03/07/20 24 08/16/2019 imagi ng/di [...] Details Recorded Time Otalgia of left ear 9860863145 Active 2017 Otalgia, left ear; Note: Date Diagnosed : 12/15/2017 2:46 PM (H92.02) Not Available [facility] 4 02:35:59 Pain of left temporoma ndibular joint 29055353843 256004 Active 2017 Arthralgi a of left temporoma ndibular joint; Note: Date Diagnosed : 12/15/2017 2:46 PM (M26.622) Not Available [facility] 4 02:35:49 Deviated nasal septum 765480152 Active 2020 Deviated nasal septum; Note: Date Diagnosed : 01/24/2021 10:12 AM (J34.2) Not Available [facility] 4 02:35:57 Obstructi ve sleep apnea syndrome 65736705 Active 2020 Obstructi ve sleep apnea (adult) (pediatri c); Note: Date Diagnosed : 01/24/2021 10:12 AM (G47.33) Not Available [facility] 4 02:36:00 Allergic rhinitis 01379126 Active 2020 Other allergic rhinitis; Note: Date Diagnosed : 01/24/2021 10:11 AM (J30.89) Allergi c rhinitis, unspecifi ed; Note: Date Diagnosed : 11/06/2020 1:49 PM (J30.9) ; Start Date : Not Available [facility] 4 02:35:54 Chronic rhinitis 49323174 Active 2023 Meagan plascencia [place] - [facility] 4 09:16:38 Atypical facial pain 11651649 Active 2023 Meagan plascencia [place] - [facility] [place] 4 09:43:08 Pain in face 90923554 Active 2023 Meagan Miya JONY plascencia - [facility] 4 09:43:18 Anterior rhinorrhe a 836818170 Active 2024 Meagan Miya JONY plascencia - [facility] 5 14:33:59 Problem Notes None recorded. Medical Equipment None Reported. Allergies Allergen ID Allergen Name Allergen Category Reaction Reaction Severity Criticality Documentation Date Start Date Code Code System Note Provider Name and Address Organization Details Recorded Time 815386 Substance with sulfonami de structure and antibacte rial mechanism of action (substanc e) medicatio n other Not available Not available 11/30/2023 62857 8003 SNOMED React ion: unkno wn, unspe cifie d;; Not Available [facility] 4 01:24:22 Medications Name Sig Start Date [...] mg tablet 02/17 completed Medicati on ID: [id number] B rand Name: atorvast atin Rogelio d [...] mg tablet 02/17 completed Medicati on ID: [id number] B rand Name: atenolol Send Method: E-Prescr [...] mg) tablet 02/17 completed Medicati on ID: [id number] B rand Name: digoxin Send Method: E-Prescr [...] mg tablet 02/17 completed Medicati on ID: [id number] B rand Name: sertrali ne Send Method: [...] mg tablet 2020 active Medicati on ID: [id number] B rand Name: rene israel Send Method: [...] Updated DateTime 08/21/2024 157.48 cm 25.6 kg/m2 23889.93 g Vangie Michael [place] - [facility] 08/21/2024 14:28:06 Date Recorded Body height Body mass index (BMI) Body weight Provider Name and Address Organization Details Last Updated DateTime 02/18/2024 157.48 cm 27.8 kg/m2 38634.04 g Vangie Michael [place] - [facility] 02/18/2024 09:12:09 Social History None recorded. Functional Status None recorded. Mental Status None recorded. Family History Nothing Reported. Medical History No medical history recorded. Gynecological HistoryNo gynecological history recorded. Obstetrics History GPAL:G 0 P 0 0 0 0 Past Encounters Encounter ID Performer Location Encounter Start Date Encounter Closed Date Diagnosis/Indication Diagnosis SNOMED-CT Code Diagnosis ICD10 Code Diagnosis IMO Codes Diagnosis Note [id number] MEAGAN MAGANA PA-C [facility] [address] [place] [address] 02/18/2024 08:58:15 02/18/2024 09:40:13 Chronic rhinitis 94855141 J31.0 Pain in face 67363757 R5 1.9 [id number] MEAGAN MAGANA PA-C [facility] [address] [place] [address] 08/21/2024 14:08:42 08/21/2024 14:55:22 Allergic rhinitis 00793406 J30.89 J30.9 Deviated nasal septum 12 5040646 J34.2 Anterior rhinorrhea 2772 88687 J34.89 Health Concerns Section Related Observation LastModified by Organization Detai ls LastModified Time None Recorded Concern Status LastModified by Organization Details LastModified Time None Recorded Advance Directives Directive None Recorded Payers Insurance Date Sequence Insurance Name Policy Number Policy Lynn Covered Member ID Lynn Member ID Guarantor Name 02/28/2025 1 [place] Marycarmen Gillespie [id number] Marycarmen Gillespie 02/28/2025 3 [place] Marycarmenian Gillespie [id number] Marycarmen Mehtaitez 02/28/2025 2 [employer] - SENIOR SERVICES PLAN F (MEDICARE SUPPLEMENT) [id number] Marycarmen Gillespie [id number] Marycarmen Gillespie Notes Date Note Type Note [...] on the septum. MELANIE RODRIGUEZ MD 100 [facility],[place] [address], [place], [address], [facility] - [facility] 02/18/2024 17:28:02 08/21/2024 text/html ROS as [...] and sinonasal polyps. MELANIE RODRIGUEZ MD 100 [facility], [place], [address], [facility] 08/21/2024 17:03:37 OBGyn Episode No OBEpisode recorded.
--- OUTSIDE RECORDS SUMMARY | 2025-06-27 21:19 | XMS_ITS | Encounter Summary ---
Author Organization [facility] Address [address] [place] [address] Care Team Providers Care [employer] Driver Name Role Phone Evaristo Hay Primary Care Provider [phone] Encounter Details Date Type Department Care Team (Late st Contact Info) Description 03/23/2025 Lab Requisition [facility] - Main Lab [address] [facility] [place] [id number] Grzegorz Argueta MD [address] [facility] [address] [place] [phone] Frequency of micturition Social History Tobacco Use [...] for your loved ones. For example, child nutrition manager or elderly care for an older adult? [...] Description 08/09/2025 9:00 AM EST Ancillary Procedure [facility] - [address] [place] [address] 10/01/2025 10:45 AM EDT Office Visit Adult Medicine [address] [place] [address] Evaristo Hay PA [address] [place] [address] documented as of this encounter Procedures Procedure Name Priority Date/Time Associated Diagnosis Comments CULTURE URINE Routine 03/23/2025 12:00 AM EDT Frequency of micturition documented in this encounter Results * Culture urine (03/23/2025 12:00 AM EDT) Culture, Urine No growth 03/24/2025 11:03 AM EDT [facility] Urine Urine specimen from urethra / Unknown Non-blood Collection / Unknown 03/23/2025 03/23/2025 1:46 PM EDT us Grzegorz Argueta MD LAB MICROBIOLOGY - GENERAL ORDER YOLANDA Final Result [facility] [address] [place] [address], documented in this encounter Visit Diagnoses Diagnosis Frequency of micturition Urinary frequency documented in this encounter Additional Health Concerns Assessment Noted Time PHQ-9 Depression Total Score: 0 12/05/19 25 9:17 PM EDT documented as of this encounter Care Teams [employer] Truck Driver Relationship Specialty Start Date End Date Evaristo Hay PA [address] [place] [address] PCP - General Internal Medicine 07/13/24 documented as of this encounter
--- OUTSIDE RECORDS SUMMARY | 2025-06-27 21:20 | XMS_ITS | Clinical Summary ---
Author Organization [place] 299 [facility] Address [address] [place] [address] Phone Care Team Providers Care Childcare Worker Name Role Phone Evaristo Hay Primary Care Provider [phone] Allergies Active Allergy Reactions Criticality Noted Date [...] did not show any evidence of an WI, myocarditis, infiltrative cardiomyopathy, or hypertrophic cardiomyopathy. On [...] frequency. Obstructive sleep apnea 07/31/2020 Overview (06/12/2024): [facility] Polysomnogram Date 06/20/2021. Wt 155#; BMI 28. [...] 10/25/2014 Controlled diabetes mellitus type II without com plication 10/11/2013 Polymyalgia rheumatica 12/09/2010 Overview (06/12/2024): Onset September 2010. Dr. Gould Anemia 04/30/2005 Overview (06/12/2024): chronic---Give NO BLOOD(orthodox reasons) IMO Update Fall 2015 Unspecified sinusitis (chronic) 04/30/2005 Overview (06/12/2024): [facility] [place] [place] update Resolved Problems Problem Noted Date Diagnosed Date Resolved Date Cardiomyopathy 03/17/2024 09/20/2024 Overview (06/12/2024): Last Assessment & [...] Description 06/18/2025 10:00 AM EST Ancillary Procedure [facility] - [address] [place] [address] PVC's (premature ventricular contractions) 06/13/2025 10:45 AM EST Office Visit Adult Medicine [facility] - [address] [address] Evaristo Hay PA Controlled diabetes mellitus type II without complication (CMS/HCC V24, CMS/HCC V28) (Primary Dx); Primary hypertension; Pure hypercholesterolemia; Obstructive sleep apnea; Osteoporosis, unspecified osteoporosis type, unspecified pathological fracture presence; PLMD (periodic limb movement disorder); Need for prophylactic vaccination and inoculation against influenza 06/11/2025 10:20 AM EST Lab [facility] - [place] [address] [place], [place] Controlled type 2 diabetes mellitus without complication, without long-term current use of insulin ([facility] V24, [facility] V28); Anemia, unspecified type; Gastroesophageal reflux disease without esophagitis; Primary hypertension; Hyperlipidemia, unspecified hyperlipidemia type; Obstructive sleep apnea; PVC's (premature ventricular contractions); Osteoporosis, unspecified osteoporosis type, unspecified pathological fracture presence; Polymyalgia rheumatica ([facility] V24) 06/11/2025 Results Follow-Up Adult Medicine [facility] [address] [place], [place] [phone] Evaristo Hay PA 05/29/2025 4:00 PM EST Office Visit [facility] [address] [facility] [address] [place] [address] Leydi-Reddy Lam MD PVC's (premature ventricular contractions) (Primary Dx); [...] SLIDES); COMMENT: 03/2003 OTHER SURGICAL HISTORY PROCEDURE: NM LIG/TRNSXJ FLP TUBE ABDL/VAG APPR UNI/BI OTHER SURGICAL HISTORY PROCEDURE: HISTORICAL TOTAL HYSTERECTOMY W/O BSO COLONOSCOPY 2005 PROCEDURE: HISTORICAL COLONOSCOPY; COMMENT: negative screening exam. COLONOSCOPY 2016 PROCEDURE: HISTORICAL COLONOSCOPY; COMMENT: Negative screening examination. UPPER GASTROINTESTINAL ENDOSCOPY 07/20/2018 PROCEDURE: NM UPPER GI ENDOSCOPY PERFORMED; COMMENT: Visually normal [...] unspecified DX:Anemia, u nspecified; COMMENT: chronic---Give NO BLOOD(orthodox reasons) Anxiety state, unspecified DX:An xiety state, [...] your loved ones. For example, child care group leader or elderly care for an older adult? [...] Description 08/09/2025 9:00 AM EST Ancillary Procedure [facility] - [address] [place] [address] 10/01/2025 10:45 AM EDT Office Visit Adult Medicine [address] [address] Evaristo Hay, HARSHAD [address] [place] [phone] Health Maintenance Due Date Last Done Comments Drug Screen 1950 Non-Opioid Controlled Substance Agreement 1950 Medicare Annual Wellness Visit 06/27/2022 COVID-19 Vaccine [...] this topic Medical Devices Implanted Type Area Unhairer Device Identifier Shelf Expiration Date Model / Serial / Lot Stent Uret Stretch Vl 7fr 22-3 - Sn/A - [id number] Implanted:Qty: 1 on 07/24/2024 by Aiden Katz MD at [facility] Stents Left: [employer] Y 12/07/2026 [id number] / N/A / [id number] Procedures Procedure Name Priority Date/Time Associated Diagnosis Comments LIPID PANEL WITH REFLEX TO DIRECT LDL Routine 06/11/2025 10:29 AM EST Controlled type 2 diabetes mellitus without complication, without long-term current use of insulin ([facility] V24, [facility] V28) Anemia, unspecified type Gastroesophageal reflux disease without esophagitis Primary hypertension Hyperlipidemia, unspecified hyperlipidemia type Obstructive sleep apnea PVC's (premature ventricular contractions) Osteoporosis, unspecified osteoporosis type, unspecified pathological fracture presence Polymyalgia rheumatica ([facility] V24) MICROALBUMIN CREATININE URINE RATIO Routine 06/11/2025 10:29 AM EST Controlled type 2 diabetes mellitus without complication, without long-term current use of insulin ([facility] V24, [facility] V28) Anemia, unspecified type Gastroesophageal reflux disease without esophagitis Primary hypertension Hyperlipidemia, unspecified hyperlipidemia type Obstructive sleep apnea PVC's (premature ventricular contractions) Osteoporosis, unspecified osteoporosis type, unspecified pathological fracture presence Polymyalgia rheumatica ([facility] V24) COMPREHENSIVE METABOLIC PANEL Routine 06/11/2025 10:29 AM EST Controlled type 2 diabetes mellitus without complication, without long-term current use of insulin ([facility] V24, [facility] V28) Anemia, unspecified type Gastroesophageal reflux disease without esophagitis Primary hypertension Hyperlipidemia, unspecified hyperlipidemia type Obstructive sleep apnea PVC's (premature ventricular contractions) Osteoporosis, unspecified osteoporosis type, unspecified pathological fracture presence Polymyalgia rheumatica ([facility] V24) HEMOGLOBIN A1C Routine 06/11/2025 10:29 AM EST Controlled type 2 diabetes mellitus without complication, without long-term current use of insulin ([facility] V24, [facility] V28) Anemia, unspecified type Gastroesophageal reflux disease without esophagitis Primary hypertension Hyperlipidemia, unspecified hyperlipidemia type Obstructive sleep apnea PVC's (premature ventricular contractions) Osteoporosis, unspecified osteoporosis type, unspecified pathological fracture presence Polymyalgia rheumatica ([facility] V24) EXTERNAL DIABETIC RETINA EYE EXAM 05/11/2025 MG MAMMO DIGITAL SCREENING W JOHN BILAT [...] 0 - 200 mg/dL 06/11/2025 2:[address] [facility] Triglycerides 76 0 - 150 mg/dL 06/11/2025 2:[address] [facility] HDL 62 >=40 mg/dL 06/11/2025 2:[address] [facility] LDL Calculated 49 0 - 100 mg/dL 06/11/2025 2:[address] [facility] Comment:Estimated LDL Calcul ated using equation: Total cholesterol - HDL cholesterol - (Triglycerides/5) VLDL Cholesterol Jaden 15.2 mg/dL 06/11/2025 2:[address] [facility] Non HDL Chol. (LDL+VLDL) 64 <145 mg/dL 06/11/2025 2:[address] [facility] Chol/HDL Ratio 2.0 0.0 - 4.4 06/11/2025 2:04 PM EST [facility] Blood Venous blood specimen / Unknown Venipuncture / Unknown 06/11/2025 10:29 AM EST 06/11/2025 10:29 AM EST Evaristo PATRICIA LAB BLOOD ORDERABLES Sybil l Result Performing Organization Address [facility]/ZIP Co de Phone Number [facility] [address] [place] [address], * Microalbumin creatinine urine ratio (06/11/2025 10:29 AM EST) Creatinine, Urine 95.0 mg/dL 06/11/2025 2:10 PM EST [facility] Microalb, Ur <3.0 0.0 - 29.0 mg/L 06/11/2025 2:10 PM EST [facility] Microalb/Creat Ratio <3 <30 mg/g creat 06/11/2025 2:10 PM EST [facility] Urine Urine specimen obtained by clean catch procedure / Unknown Non-blood Collection / Unknown 06/11/2025 10:29 AM EST 06/11/2025 10:29 AM EST Evaristo PATRICIA LAB URINE ORDERABLES Sybil l Result Performing Organization Address City/[facility]/ZIP Co de Phone Number [facility] [address] [place] [address], * (ABNORMAL) Hemoglobin A1c (06/11/2025 10:29 AM EST) Hemoglobin A1C 6.8(H) <6.5 % LAB CHEMISTRY METHOD 06/11/2025 8:11 PM EST [facility] Mean Bld Glu Estim. 148 mg/dL LAB CHEMISTRY METHOD 06/11/2025 8:[address] [facility] Blood Venous blood specimen / Unknown Venipuncture / Unknown 06/11/2025 10:29 AM EST 06/11/2025 10:29 AM EST us Evaristo PATRICIA LAB BLOOD ORDERABLES Sybil l Result [facility] [address] [place] [address], * (ABNORMAL) Comprehensive metabolic panel (06/11/2025 10:29 AM EST) Sodium 140 133 - 145 mmol/L 06/11/2025 2:[address] [facility] Potassium 4.1 3.5 - 5.5 mmol/L 06/11/2025 2:[address] [facility] Chloride 101 96 - 110 mmol/L 06/11/2025 2:[address] [facility] CO2 31 21 - 32 mmol/L 06/11/2025 2:[address] [facility] Anion Gap 8 3 - 11 06/11/2025 2:[address] [facility] Glucose 131(H) 70 - 100 mg/dL 06/11/2025 2:[address] [facility] BUN 14 5 - 25 mg/dL 06/11/2025 2:[address] [facility] Creatinine 0.68 0.50 - 1.10 mg/dL 06/11/2025 2:[address] [facility] eGFR 92 >=60 mL/min/1. 73m2 06/11/2025 2:[address] [facility] Comment:Calculation based on the Chronic Kidney Disease Epidemiology Collaboration (CKD-EPI) equation refit without adjustment for race. BUN/Creatinine Ratio 20.6 06/11/2025 2:[address] [facility] Calcium 8.2(L) 8.5 - 10.5 mg/dL 06/11/2025 2:[address] [facility] AST (SGOT) 22 10 - 42 unit/L 06/11/2025 2:[address] [facility] ALT (SGPT) 18 10 - 60 unit/L 06/11/2025 2:[address] [facility] Alkaline Phosphatase 67 42 - 121 unit/L 06/11/2025 2:[address] [facility] Total Protein 6.7 6.0 - 8.0 g/dL 06/11/2025 2:[address] [facility] Albumin 4.0 3.2 - 5.0 g/dL 06/11/2025 2:[address] [facility] Total Bilirubin 0.6 0.0 - 1.4 mg/dL 06/11/2025 2:[address] [facility] Blood Venous blood specimen / Unknown Venipuncture / Unknown 06/11/2025 10:29 AM EST 06/11/2025 10:29 AM EST Evaristo PATRICIA LAB BLOOD ORDERABLES Sybil l Result [facility] [address] [place] [address], [place] [phone] * External Diabetic Retina Eye Exam Report (05/11/2025) Anatomical Region Laterality Modality Ultrasound us Provider [facility] IM[facility] US PROCEDURES Final Result * MG Mammo Digital Screening w John [...] is recommended in 1 year. Mammo Location: [place] [facility], [address] [place] [address], [address], . -------- FINAL REPORT -------- Dictated By: Sarah Buchanan Dictated Date: 08/02/2024 08:44 ET Assigned Physician: Sarah Buchanan Reviewed and Electronically Signed By: Sarah Buchanan Signed Date: 08/02/2024 08:59 ET Workstation ID: [id number] Transcribed By: Self Edit Transcribed Date: 08/02/2024 [...] is recommended in 1 year. Mammo Location: [place] [facility], [address] [place] [address], [address], . -------- FINAL REPORT -------- Dictated By: Sarah Buchanan Dictated Date: 08/02/2024 08:44 ET Assigned Physician: Sarah Buchanan Reviewed and Electronically Signed By: Sarah Buchanan Signed Date: 08/02/2024 08:59 ET Workstation ID: [id number] Transcribed By: Self Edit Transcribed Date: 08/02/2024 08:47 ET Evaristo PATRICIA IMG BI PROCEDURES Final R esult * Falls Risk Assessment (04/06/2024) [facility] Falls Risk Assessment abstracted Result [facility] HEALTH MAINTENANCE Final Result * Depression Screening (04/06/2024) [facility] Depression Screening abstracted [facility] MAINTENANCE Final Result * Diabetes Foot Exam (04/06/2024) [facility] Diabetes: Annual Foot Exam abstracted Result [facility] HEALTH MAINTENANCE Final Result * DXA BONE [...] of fracture risk by FRAX. Evaristo PATRICIA IMG DXA PROCEDURES Final Result * Colonoscopy (07/28/2016) [facility] Colonoscopy normal abstracted Anatomical Region Laterality Modality Other Result [facility] Historical Provider HEALTH MAINTENANCE Final Result * Hepatitis C Screening (10/09/2013) [facility] Hepatitis C Screening abstracted Result [facility] Historical Provider HEALTH MAINTENANCE Final Result from Last 3 Months or Most Recently Relevant to Health Maintenance Insurance MEDICARE [place]ICAID [place] [facility] Care Teams Childcare Worker Relationship Specialty Start Date End Date Evaristo Hay PA [address] [place] [address] PCP - General Internal Medicine 07/13/24
--- OUTSIDE RECORDS SUMMARY | 2025-06-27 21:20 | XMS_ITS | Encounter Summary ---
Author Organization [facility] Address [address] [place] [address] Care Team Providers Care Geosciences Associate Professor Name Role Phone Evaristo Hay Primary Care Provider [phone] Encounter Details Date Type Department Care Team (Late Contact Info) Description 06/01/2024 Lab Requisition [facility] - Main Lab [address] [facility] [place] [id number] Aiden Katz MD [phone] [facility] [address] [place] [phone] Pyuria Social History Tobacco Use Types Packs/Day [...] Description 08/09/2025 9:00 AM EST Ancillary Procedure [facility] [address] [facility] [address] [place] [id number] 10/01/2025 10:45 AM EDT Office Visit Adult Medicine [address] [place] [address] Evaristo Hay PA [facility] [place] [address] documented as of this encounter Procedures Procedure Name Priority Date/Time Associated Diagnosis Comments BACTERIAL IDENTIFICATION AND SUSCEPTIBILITY, AEROBIC Routine 05/31/2024 12:00 AM EST Pyuria documented in this encounter Results * (ABNORMAL) Bacterial identification and susceptibility, aerobic (05/31/2024 12:00 AM EST) Culture, Bacterial ID and Sensitivity Klebsiella pneumoniae ssp pneumoniae(A) ARTI 06/02/2024 8:57 AM EST [facility] Comment: This is an edited [...] MICROBIOLOGY - GENERAL ORDER YOLANDA Final Result [facility] ([facility]) [facility] [address] [place] [address], documented in this encounter Visit Diagnoses Diagnosis Pyuria Other nonspecific finding on examination of urine documented in this encounter Care Teams Geosciences Associate Professor Relationship Specialty Start Date End Date Evaristo Hay PA [address] [place] [address] PCP - General Internal Medicine 07/13/24 documented as of this encounter
== END 2025-06-27 14:33 | disposition home or self-care (01) ==
LOC: HO.RHES 13:45
PROVIDERS: PCP Internal Medicine; Visit Provider Internal Medicine Rheumatology
DX: M75.82 Other shoulder lesions, left shoulder (principal); M25.512 Pain in left shoulder
CPT/HCPCS: 20610; 99213

== ENCOUNTER → 2025-06-27 13:45 | Outpatient (BNVA) | payer MEDICARE, OTHER, MEDICAID, SELFPAY | PROVIDERS: PCP Internal Medicine; Visit Provider Internal Medicine Rheumatology | DX: M75.52 Bursitis of left shoulder (principal); M75.82 Other shoulder lesions, left shoulder; M25.512 Pain in left shoulder; M25.612 Stiffness of left shoulder, not elsewhere classified | CPT/HCPCS: 20610; 99212; J2003; J3301 ==